=== PATIENT | male | born 1970 | race Caucasian/White ===

== ENCOUNTER 2016-11-26 12:08 | Inpatient (IN) | payer OTHER ==
[~2016-11-26] VITALS: Ht 177.8 cm; Wt 72.6 kg
[~2016-11-26 12:08] MED LIST: CHLORDIAZEPOXID10 M2 PO; CHLORDIAZEPOXID25 M3 PO; FOLIC ACID1 M1 PO; ONE DAILY MULT1 EAC2 PO; VITAMIN B-1100 MG PO
--- NOTE | 2016-11-26 12:12 | ED PSYCHIATRIC COMPLAINT ---
See Addendum History of Present Illness General Chief Complaint: ETOH/Drug Related Complaint Stated Complaint: BIBA ETOH +INTOXICATED Source: patient, EMS Exam Limitations: intoxication Vital Signs & Intake/Output Vital Signs & Intake/Output Vital Signs Date Time Temp Pulse Resp B/P B/P Pulse O2 O2 Flow FiO2 Mean Ox Delivery Rate 11/27 826 98.3 104 22 171/115 11/27 0822 98.3 104 22 171/115 95 Room Air 11/27 0753 172/106 11/27 0740 97.9 106 18 172/106 11/27 0739 97.9 108 18 172/106 94 Room Air 11/27 0644 97.6 108 20 142/98 11/27 0607 97.6 110 20 146/100 96 Room Air 11/27 0444 100 18 138/70 11/27 0444 100 18 138/70 94 Room Air 11/27 0244 98.4 107 18 135/88 11/27 0244 98.4 107 18 135/88 94 Room Air 11/27 0146 98.4 107 18 135/88 94 Room Air 11/26 2146 99.2 114 22 157/98 11/26 2145 99.2 114 22 157/98 94 Room Air 11/26 1423 97.4 100 20 140/90 92 Room Air 11/26 1236 97.8 102 12 158/98 99 Room Air ED Intake and Output 11/27 0000 11/26 1200 Intake Total Output Total Balance Patient 160 lb Weight Weight Reported by Patient Measurement Method Allergies Coded Allergies: NO KNOWN ALLERGIES (11/17/15) Reconcile Medications Amoxicillin/Clavulanate Potass (Amox-Clav 875-125 MG Tablet) 875 MG-125 MG TABLET 1 TAB PO BID ANTIBIOTIC, INFECTION (Reported) Chlordiazepoxide HCl 25 MG CAPSULE 1-2 CAP PO 4 TIMES/DAY PRN ANXIETY ( Reported) Chlordiazepoxide HCl 25 MG CAPSULE 1-2 CAP PO 4 TIMES/DAY PRN ALCOHOL WITHDRAWL Folic Acid 1 MG TABLET 1 MG PO DAILY supplements Multivitamin (One Daily Multivitamin) 1 EACH TABLET 1 TAB PO DAILY supplemental Thiamine HCl (Vitamin B-1) 100 MG TABLET 1 TAB PO DAILY supplements Triage Nurses Notes Reviewed? yes Onset: Abrupt Duration: day(s): (1) Timing: unknown Severity: moderate, severe Associated Symptoms: TEARFUL HPI: This is a 46-year-old male who presents by EMS from home for chief complaint of intoxication. He admits to drinking "a lot" today. Denies any drug use. He states he is not suicidal or homicidal. I asked him if he is here for detox and he said no. He states that he asked his friend to call EMS because he been drinking. Denies feeling anxious. He went to EMS friends called because they noticed that he was drinking a lot. He also states he may be evicted. (GARRISON ZALDIVAR MD) Past History Travel History Traveled to [place] past 21 day No Medical History Any Pertinent Medical History? see below for history Neurological: seizure, TIA, STROKE AVASCULAR NECROSIS EENT: SOME VISION DEFICIENCY Cardiovascular: hypertension, hyperlipidemia Respiratory: NONE Gastrointestinal: GERD Hepatic: NONE Renal: NONE Musculoskeletal: RIB FX Psychiatric: depression Endocrine: diabetes Blood Disorders: NONE Cancer(s): NONE INSIDE SALES SPECIALIST/Reproductive: NONE History of MRSA: No History of VRE: No History of CDIFF: No Surgical History Surgical History: hip replacement, skull surgery Psychosocial History Who do you live with Patient/Self Services at Home None What is your primary language Togolese Family History Comment: MOTHER TRIED TO COMMIT SUICIDE Family History, If Any: MOTHER (NEUROBLASTOMAALCOHOL ABUSEDM). SISTER (DM). SISTER FATHER (RETROPERITONEAL FIBROSIS). Hx Contributory? Yes (GARRISON ZALDIVAR MD) Review of Systems Review of Systems Constitutional: Denies: chills, fever. EENTM: Reports: no symptoms. Respiratory: Denies: cough, short of breath. Cardiovascular: Denies: chest pain. GI: Denies: abdominal pain. Genitourinary: Reports: no symptoms. Musculoskeletal: Reports: no symptoms. Skin: Reports: no symptoms. Neurological/Psychological: Reports: anxiety, emotional problems. Hematologic/Endocrine: Denies: bruising, bleeding, polyuria, polydipsia. Immunologic/Allergic: Reports: no symptoms. All Other Systems: Reviewed and Negative (GARRISON ZALDIVAR MD) Physical Exam Physical Exam General Appearance: alert, awake, anxious, mild distress, moderate distress, ALCOHOL ON BREATH Head: atraumatic Eyes: Bilateral: PERRL, EOMI. Ears, Nose, Throat: normal pharynx, normal ENT inspection, hearing grossly normal Neck: normal inspection, supple Respiratory: normal breath sounds Cardiovascular: regular rate/rhythm Gastrointestinal: soft, non-tender Extremities: normal range of motion Neurological/Psychiatric: awake, alert, depressed affect, TEARFUL Appearance/Memory/Insight: disheveled, impaired insight Behavoir/Eye Contact/Speech: cooperative, decreased rate of speech, good eye contact Thoughts/Hallucinations: no apparent hallucination Skin: intact, normal color, warm/dry SAD PERSONS Done? unobtained due to conditi (KAYLEY NASSAR,GARRISON) Progress Differential Diagnosis: ALCOHOL INTOCIATION, DEPRESSION, SUICIDAL IDEATION Plan of Care: Orders Procedure Date/time Status Continuous Observation Monitor 11/27 0800 Active CASE MANAGEMENT CONSULT 11/27 0047 Active Regular Diet 11/[address] in observation 11/26 1623 Active Patient Data 11/26 1555 Active Vital Signs 11/26 1555 Active Code Status 11/26 1555 Complete Code Status 11/26 1555 Active CIWA 11/26 1553 Active Continuous Observation Monitor 11/26 1459 Active ED CRISIS PSYCH CONSULT 11/26 1459 Active URINE DRUGS OF ABUSE 11/26 1240 Complete ETHANOL 11/26 1240 Complete COMPREHENSIVE METABOLIC PANEL 11/26 1240 Complete CBC WITHOUT DIFFERENTIAL 11/26 1240 Complete Intake & Output 11/26 1227 Active Laboratory Tests 11/26/16 1320: Serum Alcohol 430.0 11/26/16 1320: Anion Gap 12, Estimated GFR > 60, BUN/Creatinine Ratio 15.0, Glucose 100 H, Calcium 8.5, Total Bilirubin 0.5, AST 100 H, ALT 68, Alkaline Phosphatase 79, Total Protein 7.5, Albumin 4.5, Globulin 3.0, Albumin/Globulin Ratio 1.5, CBC w Diff NO MAN DIFF REQ, RBC 5.34, MCV 95.0 H, MCH 32.5 H, RDW 14.3, MPV 5.9 L, Gran % 73.8, Lymphocytes % 20.7, Monocytes % 4.9, Eosinophils % 0.2, Basophils % 0.4, Absolute Granulocytes 6.5, Absolute Lymphocytes 1.8, Absolute Monocytes 0.4 , Absolute Eosinophils 0, Absolute Basophils 0, PUBS MCHC 34.2, Urine Opiates Screen < 100.00, Methadone Screen < 40, Barbiturate Screen < 60, Ur Phencyclidine Scrn < 6.00, Amphetamines Screen 158, U Benzodiazepines Scrn < 85, Urine Cocaine Screen < 50, Urine Cannabis Screen 76.60 H LABS, ETOH, UTOX ORDERED. PATIENT TEARFUL AND WANTS TO GO HOME. HE DOES NOT HAVE A SOBER RODE HOME AT THIS TIME. PATIENT TOLD FAMILY ADN STAFF THAT HE DOES NOT WANT TO LIVE ANYMORE AND HAS NO PLACE TO GO. ADMITS TO RECENT OF AND FACT THAT HE MIGHT BE EVICTED. SITTER ORDER, CRISIS CONSULT PLACED. (GARRISON ZALDIVAR MD) Hand-Off Endorsed To: HARRY CORTEZ MD Endorsed Time: 1913 Pending: consult (CRISIS) (GARRISON ZALDIVAR MD) Hand-Off Endorsed To: CRYSTAL GERARD DO Endorsed Time: 0700 Pending: consult (CASE MANAGEMENT) (HARRY CORTEZ MD) Departure Departure Disposition: STILL A PATIENT Condition: Stable Clinical Impression Primary Impression: Suicidal ideation Secondary Impressions: Alcohol intoxication Referrals: VENKATESH GREGG MD (PCP/Family) Departure Forms: Customer Survey General Discharge Information (GARRISON ZALDIVAR MD) Departure Comments 11/27/16 9 am The patient is having severe diaphoresis tachycardia and elevated CIWA scores. He was moved to room 7. An IV was established. IV fluids were given and IV Ativan. He is pending case management approval for admission for alcohol detox. (CRYSTAL GERARD DO) ED Attending Observation Initial Observation Note: I have seen and personally examined PATRICIO ADAMS on 11/26/16 at 1555. I agree with the current emergency department documentation. The disposition (admission or discharge) is uncertain at this time, he needs a period of observation for the following reason(s): [CIWA PROTOCOL, ATIVAN PRN, SEIZURE PRECAUTIONS, 1:1 SITTER, CRISIS CONSULTATION WHEN STABLE] The ED Nurse caring for this patient has been personally informed as to what the patient is being observed for. Observation Re-Evaluation: I have reevaluated PATRICIO ADAMS on 11/26/16 at 1914. The physical findings that support the continued need to observe this patient include [patient signed out to Dr. Cortez pending sobriety and crisis consult. I explained to the patient and his sister at length the process. He is comfortable now sleeping in the room. Ativan was administered for anxiety. No obvious signs of alcohol withdrawal at this time.]. (GARRISON ZALDIVAR MD) Observation Re-Evaluation: I have reevaluated PATRICIO ADAMS on 11/27/16 at 0138. The physical findings that support the continued need to observe this patient include [patient CIWA score is starting to escalate. Positive nausea. Patient treated. I'll continue to observe.]. (DIEGO NASSAR,HARRY Martinez)
--- NOTE | 2016-11-26 12:27 | NUR ---
BECCA FROM HOME, EMS CALLED BY NEIGHBORS FOR PT HAVING A PANIC ATTACK. NO SI OR HI. ADMITS TO DRINKING "ALOT OF VODKA". BS 113.
[2016-11-26] MEDS ORDERED: AMOX-CLAV 875-1 EACH PO (12:34)
[2016-11-26 13:29] LABS: ABSOLUTE BASOPHIL COUNT 0 /CUMM (0.0-0.2); ABSOLUTE EOSINOPHIL COUNT 0 /CUMM (0.0-0.7); ABSOLUTE GRANULOCYTE CT 6.5 /CUMM (1.4-6.5); ABSOLUTE LYMPH COUNT 1.8 /CUMM (1.2-3.4); ABSOLUTE MONOCYTE COUNT 0.4 /CUMM (0.10-0.60); BASOPHIL % 0.4 % (0.0-2.0); EOSINOPHIL % 0.2 % (0-5); GRANULOCYTE % 73.8 % (42.2-75.2); HEMATOCRIT 50.7 % (42-52); MEAN CORPUSCULAR HGB 32.5 PG (27.0-31.0); MEAN CORPUSCULAR HGB CONC 34.2 G/DL (33.0-37.0); MEAN PLATELET VOLUME 5.9 FL (7.4-10.4); PLATELET COUNT 170 /CUMM (130-400); RBC DISTRIBUTION WIDTH 14.3 % (11.5-14.5); RED BLOOD CELL CT 5.34 /CUMM (4.70-6.10); WHITE BLOOD CELL COUNT 8.8 /CUMM (4.8-10.8)
--- NOTE | 2016-11-26 14:06 | NUR ---
PT IS VERY COOPERATIVE, DENIES HOUSER, SOME NAUSEA ZOFRAN GIVEN. ALERT TO NAME, UNSURE OF WHY HE IS HERE. ADMITS TO DRINKING ALOT OF ALCOHOL.
--- NOTE | 2016-11-26 17:24 | NUR ---
LAISHA SISTER [phone] MOBILE. ALLOWED TO GIVE INFORMATION.
--- NOTE | 2016-11-26 20:17 | NUR ---
PT RESTING ON BED. NO APPARENT DISTRESS NOTED. NORMAL RISE AND FALL OF CHEST NOTED. NORMAL RR NOTED. WILL CONTINUE TO MONITOR.
--- NOTE | 2016-11-26 20:36 | ED PSY CRISIS COLLATERAL NOTE ---
Collateral Note Collateral Note Family/Inform/[place] Contacts: KAI spoke with the patients sister, Vika Montesinos ([phone]), for collateral information. Vika notes that the patient has struggled with alcohol abuse for many years. She notes that he recently relapsed after a 6-7 month period, of sobriety, after the mother of his children in 2016. He has two sons who currently reside with their maternal grandmother. Per Vika, the patients "ex - ," via an overdose. Vika reports that the patient was doing well, until recently, when he had an increase in stressors. Despite regularly working at a [employer] the patient had his house foreclosed on and he was evicted today. Vika states that "the SWAT team," was there during the eviction process, as the patient had firearms in the home (legally per Vika). Vika believes that the patient relapsed over the last couple of days and was intoxicated when police were there. She states that the patient had a seizure and that the police called an ambulance. Vika states that the patient made multiple suicidal statements today and that she is concerned for him. Vika is not clear what would be most helpful for the patient, however she is clear that he does need help. She reports that she did inform his employer that he was in the ED, however she is concerned for his mental health, if he loses his job, as he has lost so much. Vika would like to be called tomorrow with the plan of care and will make herself available to talk and to assist in plan.
--- NOTE | 2016-11-26 21:44 | NUR ---
PT ACTIVELY EXPERIENCING N/V. PT MEDICATED WITH ZOFRAN PO. PT APPEARS TO BE FLUSHED. WILL CONTINUE TO MONITOR.
[2016-11-26 21:46] VITALS: BP 157/98
[2016-11-27] VITALS (13 sets, daily range): BP systolic 135–172; BP diastolic 70–115
--- NOTE | 2016-11-27 00:42 | NUR ---
PT CONTINUES TO EXPERIENCE N/V. PT MEDICATED WITH REGLAN IM. WILL CONTINUE TO MONITOR.
--- NOTE | 2016-11-27 01:02 | NUR ---
PT MEDICATED WITH PO ATIVAN PER EMAR.
--- NOTE | 2016-11-27 02:56 | NUR ---
PT RESTING QUIETLY ON STRETCHER. NO APPARENT DISTRESS NOTED. NORMAL RISE AND FALL OF CHEST NOTED. WILL CONTINUE TO MONITOR. SITTER IN PLACE.
--- NOTE | 2016-11-27 04:52 | NUR ---
PT UP TO RESTROOM, SITTER IN PLACE.
--- NOTE | 2016-11-27 06:58 | NUR ---
REPORT GIVEN TO LARRY CAZARES.
--- NOTE | 2016-11-27 07:41 | NUR ---
ASSUMED CARE AT THIS TIME, PT AWAKE AND ALERT, DENIES NAUSEA AT THIS TIME, STATES THAT THE NAUSEA MED THAT PREVIOUS NURSE GAVE HELPED. PT COMPLAINS OF FEELING SWEATY , AND MONSTER PT NOTED WITH VISIBLE SWEAT ON FOREHEAD AND ARMS TREMULOUS
--- NOTE | 2016-11-27 07:43 | NUR ---
BP 170/106 MD AWARE
--- NOTE | 2016-11-27 07:53 | NUR ---
PT MEDICATED WITH ATIVAN 2 MG PO AND LOPRESSOR 25 MG PO PER ORDER
--- NOTE | 2016-11-27 08:24 | NUR ---
PT NOTED NOT TO BE ABLE TO HOLD CUP DUE TO HANDS SHAKING, BEADS OF SWEAT ON FOREHEAD AND SCRUBS SATURATED WITH SWEAT, PT MOVED TO MEDICAL ROOM AND IV # 20 PLACED IN HIS R HAND. PT REMAINS ALERT AND ORIENTED AND SINUS TACH ON MONITOR WITH HR 106. DR GERARD AT BEDSIDE TO EVALUATE
--- NOTE | 2016-11-27 08:36 | NUR ---
PT NOTED WITH LOOSE NON PRODUCTIVE COUGH, STATES THAT HE WAS DIAGNOSED WITH BRONCHITIS, O2 SAT 86-88 % ON RA, PLACED ON 2L VIA NC AND O2 SAT INCREASED TO 92 % . MD MCCALL
--- NOTE | 2016-11-27 08:51 | NUR ---
FS 90 AT THIS TIME, WHEN THIS NURSE QUESTIONED HIM ABOUT HIS HISTORY OF DIABETES , PT STATES THAT HE IS HYPOGLYCEMIC, FS 90 AT THIS TIME, FOOD TRAY PROVIDED BUT PT STATES THAT HE JUST HAS NO APPETITE AT THIS TIME. PT DRANK A CARTON OF MILK ABOUT 35 MINUTES AGO.
--- NOTE | 2016-11-27 09:20 | NUR ---
PT NOTED TO BE SLEEPING AT THIS TIME, REGULAR RESP RATE NOTED HR 84 AND NSR
--- NOTE | 2016-11-27 09:54 | NUR ---
PT MEDICATED WITH LIBRIUM 50 MG PO PER ORDER, ALERT AND ORIENTED ,MILD VISIBLE TREMORS NOTED AT THIS TIME.
--- NOTE | 2016-11-27 10:35 | NUR ---
PT AWAKE AND ALERT AT THIS TIME, DENIES FEELING SHAKEY , MILD VISIBLE TREMORS NOTED WHRN HOLDING ARMS OUT. BP REMAINS ELEVATED 160/112 MD MADE AWARE
--- NOTE | 2016-11-27 11:14 | NUR ---
PT ALERT AND ORIENTED. BSG = 87. MILD TREMORS NOTED WITH ARMS OUTSTRETCHED. CIWA = 4
--- NOTE | 2016-11-27 11:40 | NUR ---
11/27 CASE MGMT- [facility] AUTH#[id number] FOR 6 DAYS UNTIL 12/02/[address] GERARD AWARE.
--- NOTE | 2016-11-27 11:46 | RADIOLOGY REPORT ---
EXAMINATION: XR PORTABLE CHEST CLINICAL INFORMATION: Cough. Assess for pneumonia. Shortness of breath. COMPARISON: Chest x-ray 09/04/2015. TECHNIQUE: Portable upright frontal view of the chest was obtained. FINDINGS: The lung peña are well expanded and appear clear bilaterally. The cardiac silhouette is normal. There are no pleural effusions or pneumothorax. The central pulmonary vasculature is normal. The hilar regions appear normal. There are no acute osseous findings. IMPRESSION: 1. There are no acute cardiopulmonary findings.
--- NOTE | 2016-11-27 11:52 | NUR ---
PT MEDICATED WITH LOPRESSOR 5MG IV.
--- NOTE | 2016-11-27 12:25 | History & Physical ---
[facility] 11/27/16 1225: General Information and HPI MD Statement: I have seen and personally examined PATRICIO ADAMS and documented this H&P. The patient is a 46 year old M who presented with a patient stated chief complaint of [Alcohol detox]. Source of Information: patient, family, old records Exam Limitations: no limitations History of Present Illness: is a 46 yo man with PMHx. 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 Patient was completely cooperative during the encounter and calm He reported that day before yesterday his house foreclosed on and he was evicted , as he was unable to pay the fee after his x- on May 2016. Patient reported that since his last admission to [facility] at 2014 he remains sober, he was drinking alcohol here and there but not consistently and not too much. However he started to drink heavily on August 2016, he drinks 500ml of rum and 2 peers daily before he goes to work. He had a lot of stress related to his ex-'s and financial problem. Yesterday when the police was at his house he started to have seizures so they called 911 and they brought him to ED. He stated that seizure was in the form of tonic-clonic in both upper and lower extrimity, his head and eyes was rolling back, he denies tongue biting and there is no urinary or bowel incontinence. Yesterday he reports to ED staff that he doesn't want to live anymore and he wants to end his life, so crisis was called for suicidal ideation. He was noticed to have withdrawal symptoms in the form of sweating, shaking, and anxiety. Patient denies any chest pain, shortness of breath, fever, chills, nausea, vomiting, vision changes, hallucinations, and there is no change in urinary or bowel habits. Offnote: patient report that he had a recent history of bronchitis about 2 weeks ago, he mentioned yojana he still had productive cough of yellow phlegm. Allergies/Medications Allergies: Coded Allergies: NO KNOWN ALLERGIES (11/17/15) Past History Travel History Traveled to [place] past 21 day No Medical History Neurological: seizure, TIA, STROKE AVASCULAR NECROSIS EENT: SOME VISION DEFICIENCY Cardiovascular: hypertension, hyperlipidemia Respiratory: NONE Gastrointestinal: GERD Hepatic: NONE Renal: NONE Musculoskeletal: RIB FX Psychiatric: depression Endocrine: diabetes Blood Disorders: NONE Cancer(s): NONE TOP IRONER/Reproductive: NONE History of MRSA: No History of VRE: No History of CDIFF: No Isolation History: Standard Surgical History Surgical History: hip replacement, skull surgery Past Family/Social History Family History Relations & Conditions if any MOTHER (NEUROBLASTOMAALCOHOL ABUSEDM). SISTER (DM). SISTER FATHER (RETROPERITONEAL FIBROSIS). Psychosocial History Who Do You Live With? self Services at Home: None Smoking Status: Unknown If Ever Smoked ETOH Use: heavy use Functional Ability ADLs Independent: dressing, eating, toileting, bathing. Ambulation: independent IADLs Independent: shopping, housework, finances, food prep, telephone, transportation , medication admin. Review of Systems Review of Systems Constitutional: Reports: no symptoms. EENTM: Reports: no symptoms. Cardiovascular: Reports: no symptoms. Respiratory: Reports: no symptoms. GI: Reports: no symptoms. Genitourinary: Reports: no symptoms. Musculoskeletal: Reports: no symptoms. Skin: Reports: no symptoms. Neurological/Psychological: Reports: anxiety. Hematologic/Endocrine: Reports: no symptoms. Immunologic/Allergic: Reports: no symptoms. All Other Systems: Reviewed and Negative Exam & Diagnostic Data Last 24 Hrs of Vital Signs/I&O Vital Signs Date Time Temp Pulse Resp B/P B/P Pulse O2 O2 Flow FiO2 Mean Ox Delivery Rate 11/27 1327 92 19 156/102 11/27 1321 92 19 156/102 91 Nasal 2.0L Cannula 11/27 1223 87 28 159/100 94 Nasal 2.0L Cannula 11/27 1220 87 28 159/100 11/27 1205 86 26 156/101 95 Nasal 2.0L Cannula 11/27 1152 99 17 161/107 11/27 1113 95 20 167/108 11/27 1112 95 20 167/108 95 Nasal 2.0L Cannula 11/27 1034 98.0 90 18 160/112 98 Nasal 2.0L Cannula 11/27 1033 98.0 90 18 160/112 11/27 0922 99.1 88 18 145/106 11/27 0822 99.1 88 20 145/106 95 Nasal 2.0L Cannula 11/27 0827 98.3 104 22 171/115 11/27 0822 98.3 104 22 171/115 95 Room Air 11/27 0753 172/106 11/27 0740 97.9 106 18 172/106 11/27 0739 97.9 108 18 172/106 94 Room Air 11/27 0644 97.6 108 20 142/98 11/27 0607 97.6 110 20 146/100 96 Room Air 11/27 0444 100 18 138/70 11/27 0444 100 18 138/70 94 Room Air 11/27 0244 98.4 107 18 135/88 11/27 0244 98.4 107 18 135/88 94 Room Air 11/27 0146 98.4 107 18 135/88 94 Room Air 11/26 2146 99.2 114 22 157/98 11/26 2145 99.2 114 22 157/98 94 Room Air 11/26 1423 97.4 100 20 140/90 92 Room Air Physical Exam General Appearance Alert, Oriented X3, Cooperative, No Acute Distress Skin No Rashes, No Breakdown, No Significant Lesion HEENT Atraumatic, PERRLA, EOMI, Mucous Membr. moist/pink Neck Supple, No JVD, No thryomegaly Lymphatic Axillary nl, Cervical nl Cardiovascular Regular Rate, Normal S1, Normal S2 Lungs Clear to Auscultation, Normal Air Movement Abdomen Normal Bowel Sounds, Soft, No Tenderness Neurological Normal Speech, Strength at 5/5 X4 Ext, Normal Tone Extremities No Edema, Normal Pulses Vascular Normal Pulses, Pulses Symmetrical Assessment/Plan Assessment: is a 46 yo man with PMHx. 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 Admitted to general medicine floor for alcohol detox. Vitals, examination, labs and imaging as above Assessment: #ETOH withdrawal #Hx. of ETOH withdrawal seizure #Recent Hx. of bronchitis (2 weeks ago) #Hx. of HTN, HLD #Borderline diabetes #Hx. of stroke/TIA Plan: -Will admitt the patient to telemetry floor -Will start Librium 50mg po Q8 -CIWA protocol. Ativan per CIWA -Clonidine 0.1mg PO tid for BP control -Banana bag, folic acid -Psych. consult -Social/ case management consult -Medications confirmed: he is not on any medications at home -Pain management pathway -Baseline EKG -CBC, BEP, MG, PO4 at am Full code DVT ppx: sc Lovenox HE STARTED TO DRINK AGAIN AT AUGUST, HE DRINKS HE DRINK CAPTIN MOR (RUM)AND EVERY DAY HE STARTED WITH 2 PEERS, NO DRUGS NO MARRIJUANA HE FEELS ANXIUOS, AND SHAKY, SWEATY NO CHEST PAIN , NO PALPITATION, lAST DRINK 2 DAYS AGO, As Ranked By This Provider Problem List: 1. Alcohol abuse 2. Alcohol dependence with withdrawal 3. Anxiety Core Measures/Miscellaneous Acute Coronary Syndrome ACS Diagnosis: No Cerebrovascular Accident CVA/TIA Diagnosis: No Congestive Heart Failure CHF Diagnosis: No Venous Thromboembolism VTE Risk Factors: Acute medical illness, Age > 40 No Mech VTE prophylaxis d/t: No contraindications No VTE Pharm Prophylaxis d/t: No contraindications VTE Diagnosis: No VTE Type: NONE VTE Confirmed by (Test): NONE Severe Sepsis Severe Sepsis Present: No Septic Shock Septic Shock Present: No Miscellaneous Documentation Attending Case Discussed With: DREW PASOTR MD Primary Care Physician: VENKATESH GREGG MD Patient sees these Specialists - Level of Patient Care: General Medicine DREW PASTOR 11/27/16 1347: Attending Review Statement Attending Statement Attending Statement: examined this patient, discuss w/resident/PA/WORK STATION SUPPORT SPECIALIST, agreed w/resident/PA/WORK STATION SUPPORT SPECIALIST, discussed with family, reviewed EMR data (avail), discussed with nursing, discussed with case mgmt, reviewed images, amended to note Attending Assessment/Plan: 46 o/m with recent admit for alcohol withdrawal comes with alcohol intoxication and impending withdrawal. ASSESSMENT 1. Alcohol intoxication TOÑA 430 2. Impending Dts. 3. hypertension uncontrolled 4. Marijauna use. 5. h/o alcohol withdrawal seizure 6. borderline diabetes 7. h/o vascular necrosis of hip. PLAN admit to inpatient medical services [facility] protocol, librium taper, clonidine o.1 mg tid for bp control IVF, ativan prn for seizure. MVI, thiamine folic acid acid. Pysch consult, SW consult. gi/dvt prophylaxis low threshold transfer to ICU. gi/dvt prophyalxis
--- NOTE | 2016-11-27 13:26 | NUR ---
BANANA BAG STARTED AT 125ML/HR AND PT MEDICATED WITH ATIVAN 2MG PO
--- NOTE | 2016-11-27 14:15 | NUR ---
[facility] CALLED THIS NURSE TO EVAL PT BECAUSE HE WAS DIAPHORETIC AND RED IN FACE. PT DENIES ANY OTHER CONCERNS EXCEPT A BIT OF ANXIETY AT THE MOMENT. VITALS TAKEN AND CIWA COMPLETED AND NURSE INFORMED OF FINDING
--- NOTE | 2016-11-27 14:57 | NUR ---
PT MEDICATED WITH PRILOSEC 40MG, CLONIDINE 0.1MG AND LIBRIUM 50MG PER EMAR
--- NOTE | 2016-11-27 16:23 | Patient Discharge Instructions ---
Discharge Instructions General Discharge Information You were seen/treated for: ETOH withdrawl Special Instructions: please follow up with PCP. Please quit alcohol and if need help than follow PCP or come to ED Diet Continue normal diet: Yes Activity Full Activity/No Limits: No (as tolerated) Acute Coronary Syndrome Inclusion Criteria At DC or during hospital stay patient has or had the following: ACS DIAGNOSIS No Discharge Core Measures Meds if any: Prescribed or Continued at Discharge Meds if any: NOT Prescribed or Continued at Discharge Congestive Heart Failure Inclusion Criteria At DC or during hospital stay patient has or had the following: CHF DIAGNOSIS No Discharge Core Measures Meds if any: Prescribed or Continued at Discharge Meds if any: NOT Prescribed or Continued at Discharge Cerebrovascular accident Inclusion Criteria At DC or during hospital stay patient has or had the following: CVA/TIA Diagnosis No Discharge Core Measures Meds if any: Prescribed or Continued at Discharge Meds if any: NOT Prescribed or Continued at Discharge Venous thromboembolism Inclusion Criteria VTE Diagnosis No VTE Type NONE VTE Confirmed by (Test) NONE Discharge Core Measures - Per Current guidelines, there needs to be overlap - treatment for the first 5 days of Warfarin therapy. - If discharged on Warfarin prior to 5 days of - overlap therapy, the patient will need to be - assessed for post discharge needs including - *Post discharge parental anticoagulation - *Warfarin and/or parental anticoagulation education - *Follow up date to check INR post discharge At least 5 days overlap therapy as Inpatient No Meds if any: Prescribed or Continued at Discharge Note: Overlap Therapy is Warfarin and Anticoagulant Meds if any: NOT Prescribed or Continued at Discharge
[2016-11-27] MEDS ORDERED: CLONIDINE HCL0.1 MG PO (16:26)
--- NOTE | 2016-11-27 16:49 | Event Note ---
Event Note Event Note: We discussed about the alcohol withdrawal and its complication. Patient is aware of risk of fall, seizures, even . We took the psych evaluation and they confirmed the capacity of patient to make the decision. He was oriented to time, place and person. He knows the prognosis of his disease. Despite of all he want to leave AMA and does not want to have any active intervention. We took the sign on AMA form. We gave CMR. Resident and attending is aware.
--- NOTE | 2016-11-27 16:52 | ED PSYCHIATRIST/APRN CONSULT ---
Psychiatrist/BREAD ICER ED Consult Assessment and Plan: Identifying info: 46-year-old male presents to [facility] emergency department in the context of alcohol intoxication. Consult requested to rule out patient's suicidality, additionally patient requested to leave AMA so capacity evaluation was completed with primary team present. Subjective "I want to get out of here." Patient recounts variety of stressors including his ex- dying in May of last year due to overdosing on heroin with "something else mixed in," his home being foreclosed upon, and feeling like he was "set up" to get a DUI. He states that this led to him consuming a significant amount of alcohol however he had a difficult time quantifying it. When asked what could potentially happen if the patient left without completing his alcohol withdrawl treatment he stated that he could potentially "stroke out, " or "have a seizure and fall into a ditch," as well as . He was able to verbalize the benefits of continued treatment at hospital including prevention of the above but continued to express this choice to leave. He states he will not drive. Brief ROS Gait: Unobserved Sleep: Reports poor Appetite: Adequate Energy: Fair IADLs/ADLs: Independent Objective Mental Status Exam Presentation/Appearance: Cooperative with evaluation. Hospital garb. Appears flushed, minimal tremor noted. Orientation: Oriented to self, place, situation, month and year. Incorrectly states date as but with prompting is able to correct self. Sensorium: Awake and alert Eye contact: Appropriate Affect: Blunted Mood: Dysphoric Depression: Endorses Anxiety: Endorses Thought Content: - Denies SI/HI, AH/VH, PI. States and also believes they will not kill themselves. - Does report he had suicidal thoughts while intoxicated several weeks ago and did not act on them. Denies any suicide attempt or suicide attempt by family member or close friends. - Denies Hopeless/Helpless Thoughts Thought Process: Linear, perseverative at times on feeling of wanting to leave Associations: Appropriate Speech: Normal tone and rate Judgment: Poor Insight: Poor Cognition: Memory: Short-term deficits reported due to recent intoxication otherwise grossly intact Attention/Concentration: Grossly intact Fund of Knowledge: Adequate Per nursing report patient did not make explicit suicidal statements but rather made comments to sitter regarding feeling helpless in the face of his current stressors. Capacity assessment Patient was able to indicate a choice of treatment or no treatment, stating he would prefer no treatment. He was able displayed the ability to understand the relevant information and appreciate the situation and it's consequences including risks and benefits of treatment versus no treatment. He displayed the ability to reason about treatment options. Laboratory Tests 11/26/16 1320: Serum Alcohol 430.0 11/26/16 1320: Anion Gap 12, Estimated GFR > 60, BUN/Creatinine Ratio 15.0, Glucose 100 H, Calcium 8.5, Total Bilirubin 0.5, AST 100 H, ALT 68, Alkaline Phosphatase 79, Total Protein 7.5, Albumin 4.5, Globulin 3.0, Albumin/Globulin Ratio 1.5, CBC w Diff NO MAN DIFF REQ, RBC 5.34, MCV 95.0 H, MCH 32.5 H, RDW 14.3, MPV 5.9 L, Gran % 73.8, Lymphocytes % 20.7, Monocytes % 4.9, Eosinophils % 0.2, Basophils % 0.4, Absolute Granulocytes 6.5, Absolute Lymphocytes 1.8, Absolute Monocytes 0.4 , Absolute Eosinophils 0, Absolute Basophils 0, PUBS MCHC 34.2, Urine Opiates Screen < 100.00, Methadone Screen < 40, Barbiturate Screen < 60, Ur Phencyclidine Scrn < 6.00, Amphetamines Screen 158, U Benzodiazepines Scrn < 85, Urine Cocaine Screen < 50, Urine Cannabis Screen 76.60 H Assessment 46-year-old male presents to [facility] intoxicated. He attributes his current drinking to multiple stressors. He is not suicidal at this time and has no known history of suicide attempt. He is able to satisfy healthcare decision-making capacity as it relates to his treatment or non- treatment of alcohol detoxification. He would benefit from a medically supervised detox and follow-up care however he communicates this choice to decline this treatment. As he has capacity, is not an imminent threat to himself or anyone else, and is not gravely disabled he cannot be held against his will. Differential diagnosis Alcohol use disorder, severe Rule out adjustment disorder Rule out unspecified mood disorder Plan 1. The patient may leave AMA but it would be prudent to continue to encourage him to accept treatment to prevent negative outcomes to help maintain sobriety. A total of 60 minutes was spent with the patient with more than 50% of the time spent in counseling and/or coordination of care.
--- NOTE | 2016-11-27 17:16 | NUR ---
PT IS LEAVING AMA
--- NOTE | 2016-11-27 17:36 | Discharge Summary ---
Visit Information Visit Dates Admission Date: 11/27/16 Discharge Date: 11/27/2016 Hospital Course Course Attending Physician: DREW PASTOR MD Primary Care Physician: VENKATESH GREGG MD [facility] Course: is a 46 yo man with PMHx. 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 Vital signs-temperature 97.4, pulse 100, respiratory 20, blood pressure 140/90, SPO2 92% on room air We admitted the patient into general medical floor.He was treated on the line of alcohol withdrawal But later he decided to leave. We took the psychiatry consult to know the capacity of the patient, and according to them, he has capacity to make the decision. We discussed about the benefit of the treatment and the risk of not having the treatment. Patient is aware of all the risks of not having the treatment including seizures, and . Despite of benefit and risk he refused to remain admitted and wanted to leave. We discharged the patient and advised to follow-up with the PCP. We also advised to take the medication as prescribed. Allergies: Coded Allergies: NO KNOWN ALLERGIES (11/17/15) Disposition Summary Disposition Principal Diagnosis: Alcohol intoxication, blood alcohol level 430, impending delirium tremens Additional Diagnosis: Polysubstance abuse Hypertension, uncontrolled Borderline diabetes History of vascular necrosis of the hip Discharge Disposition: left against medical adv Discharge Instructions General Discharge Information Code Status: Full Code Patient's Diet: Regular Patient's Activity: As tolerated Follow-Up Instructions/Appts: Please follow-up with your primary care provider. Please avoid /quit alcohol intake. Medications at Discharge Discharge Medications: Stop taking the following medications: Folic Acid (Folic Acid) 1 MG TABLET ORAL DAILY Days = 60 Thiamine HCl (Vitamin B-1) 100 MG TABLET ORAL DAILY Days = 60 Multivitamin (One Daily Multivitamin) 1 EACH TABLET ORAL DAILY Days = 60 Start taking the following new medications: Clonidine HCl (Clonidine HCl) 0.1 MG TABLET 1 Tablet ORAL TWICE DAILY Qty = 6 No Refills Copies To: VENKATESH GREGG MD, MD Review Statement Documenting Attending: DREW PASTOR MD
--- NOTE | 2016-11-29 07:52 | NUR ---
Late Entry: Aware of patients AMA discharge on 11/27/16. Patient not seen by social media director prior to discharge.
== END 2016-11-27 17:16 | DRG 775 ==
LOC: ERH 12:08 → ERHI 16:23 → EDBEDREQSVC 11-27 12:56 → EDBEDREQ 11-27 12:56 → EDBEDREQDT 11-27 12:56 → EDBEDREQTM 11-27 12:56 → ERHI 11-27 12:57 → CMPBEDREQ 11-27 23:10
PROVIDERS: ADMIT Emergency Medicine
DX: F10.239 Alcohol dependence with withdrawal, unspecified (principal); Y90.8 Blood alcohol level of 240 mg/100 ml or more; I10 Essential (primary) hypertension; E78.5 Hyperlipidemia, unspecified; E11.9 Type 2 diabetes mellitus without complications; F32.9 Major depressive disorder, single episode, unspecified; Z86.73 Personal history of transient ischemic attack (TIA), and cerebral infarction without residual deficits; K21.9 Gastro-esophageal reflux disease without esophagitis; F12.90 Cannabis use, unspecified, uncomplicated
CPT/HCPCS: ERO; 80307; 82436; 93005; 93010; G0480; J1650; J2765; J3101; J3490

== ENCOUNTER 2016-11-28 19:28 | Inpatient (IN) | payer OTHER ==
[~2016-11-28] VITALS: Ht 177.8 cm; Wt 79.4 kg
[~2016-11-28 19:28] MED LIST changes: +AMOX-CLAV 875-1 EACH PO; +CLONIDINE HCL0.1 MG PO
--- NOTE | 2016-11-28 19:56 | ED GENERAL ADULT ---
See Addendum History of Present Illness General Chief Complaint: ETOH/Drug Related Complaint Stated Complaint: ETOH, SOB, SEEN HERE YESTERDAY FOR DETOX, LEFT AMA Source: patient, friend Exam Limitations: clinical condition, poor historian, intoxication Vital Signs & Intake/Output Vital Signs & Intake/Output Vital Signs Date Time Temp Pulse Resp B/P B/P Pulse O2 O2 Flow FiO2 Mean Ox Delivery Rate 11/29 0530 96.0 93 16 127/87 11/29 0530 96.0 93 16 127/87 97 Room Air Room Air 11/29 0336 97.0 96 18 121/67 92 Room Air / 0333 97.0 96 18 121/67 / 0134 97.0 102 18 99/57 97 Room Air / 0133 97.0 102 18 99/57 11/28 2304 97.6 102 20 112/65 11/28 2252 97.6 102 20 112/65 97 Room Air 11/28 2143 98.5 108 14 115/73 94 Room Air 11/28 2030 95 Room Air 11/285 98.3 127 18 132/81 95 Room Air ED Intake and Output 11/29 0000 11/28 1200 Intake Total 3000 Output Total Balance 3000 Intake, IV 3000 Was treated with IV fluids. Labs were sent (CRYSTAL GERARD DO) Allergies Coded Allergies: NO KNOWN ALLERGIES (11/17/15) Reconcile Medications Clonidine HCl 0.1 MG TABLET 1 TAB PO BID HTN Triage Nurses Notes Reviewed? yes Onset: Abrupt Duration: day(s): Timing: recent history HPI: 11/28/16 8 PM 46-year-old male presents to the emergency department for alcohol intoxication. The patient was seen in the emergency department and was to be admitted yesterday. He signed out AGAINST MEDICAL ADVICE and obviously drank again. He comes in by a friend who said that he called them and asked them to bring him to the hospital. In the ED the patient is obviously intoxicated he denies any trauma. The onset of the symptoms was abrupt, the duration was just today, the severity is significant; as his symptoms required to come to the emergency department for care. (CRYSTAL GERARD DO) Past History Travel History Traveled to [place] past 21 day No Medical History Any Pertinent Medical History? see below for history Neurological: seizure, TIA, STROKE AVASCULAR NECROSIS EENT: SOME VISION DEFICIENCY Cardiovascular: hypertension, hyperlipidemia Respiratory: NONE Gastrointestinal: GERD Hepatic: NONE Renal: NONE Musculoskeletal: RIB FX Psychiatric: depression Endocrine: diabetes Blood Disorders: NONE Cancer(s): NONE MEDICAL HOUSEKEEPER/Reproductive: NONE History of MRSA: No History of VRE: No History of CDIFF: No Surgical History Surgical History: hip replacement, skull surgery Psychosocial History Who do you live with Patient/Self Services at Home None What is your primary language Frisian Family History Family History, If Any: MOTHER (NEUROBLASTOMAALCOHOL ABUSEDM). SISTER (DM). SISTER FATHER (RETROPERITONEAL FIBROSIS). Hx Contributory? No (CRYSTAL GERARD DO) Review of Systems Review of Systems Constitutional: Denies: fever. EENTM: Reports: no symptoms. Respiratory: Reports: no symptoms. Cardiovascular: Reports: no symptoms. GI: Reports: no symptoms. Genitourinary: Reports: no symptoms. Musculoskeletal: Reports: no symptoms. Skin: Reports: no symptoms. Neurological/Psychological: Reports: no symptoms. Hematologic/Endocrine: Reports: no symptoms. (CRYSTAL GERARD DO) Physical Exam Physical Exam General Appearance: awake, anxious, intoxicated Head: atraumatic, normal appearance Eyes: Bilateral: normal appearance, PERRL, EOMI. Ears, Nose, Throat: normal pharynx, normal ENT inspection Neck: normal inspection, supple, full range of motion Respiratory: normal breath sounds, chest non-tender, no respiratory distress Cardiovascular: regular rate/rhythm Peripheral Pulses: 4+ radial (R), 4+ radial (L) Gastrointestinal: soft, non-tender Back: normal range of motion Extremities: normal inspection, normal range of motion Neurologic/Psych: awake, intoxicated Skin: diaphoresis Core Measures ACS in differential dx? No CVA/TIA Diagnosis: No Severe Sepsis Present: No Septic Shock Present: No (CRYSTAL GERARD DO) Progress Differential Diagnoses I considered the following diagnoses in my evaluation of the patient: [Alcohol intoxication, substance abuse, depression,] Plan of Care: Orders Procedure Date/time Status Regular Diet 11/29 B Active CASE MANAGEMENT CONSULT 11/29 617 Active Add-on Test (ER Only) 11/29 2207 Active ETHANOL 11/28 2026 Complete CIWA 11/28 1956 Active URINE DRUG SCREEN FOR ER ONLY 11/28 1956 Active URINALYSIS 11/28 1956 Complete TROPONIN LEVEL 11/28 1956 Complete LIPASE 11/28 1956 Complete COMPREHENSIVE METABOLIC PANEL 11/28 1956 Complete CBC WITHOUT DIFFERENTIAL 11/28 1956 Complete AMYLASE 11/28 1956 Complete EKG 11/28 1930 Active Laboratory Tests 11/29/16 0632: Methadone Screen Pending, Barbiturate Screen Pending, Ur Phencyclidine Scrn Pending, Amphetamines Screen Pending, U Benzodiazepines Scrn Pending, Urine Cocaine Screen Pending, Urine Cannabis Screen Pending, Urinalysis LIGHT H, Urine Color YEL, Urine Clarity CLEAR, Urine pH 6.0, Ur Specific [place] 1.020, Urine Protein 30 H, Urine Ketones NEG, Urine Nitrite NEG, Urine Bilirubin NEG, Urine Urobilinogen 0.2, Ur Leukocyte Esterase NEG, Ur Microscopic SEDIMENT EXAMINED, Urine RBC 1-3, Ur Epithelial Cells RARE, Urine Bacteria RARE H, Urine Mucus RARE, Urine Hemoglobin TRACE-INTACT H, Urine Glucose NEG 11/28/162026: Anion Gap 17 H, Estimated GFR > 60, BUN/Creatinine Ratio 16.3, Glucose 131 H, Calcium 8.8, Total Bilirubin 0.5, AST 94 H, ALT 70, Alkaline Phosphatase 88, Troponin I 0.03, Total Protein 7.6, Albumin 4.5, Globulin 3.1, Albumin/Globulin Ratio 1.5, Amylase 59, Lipase 260, CBC w Diff NO MAN DIFF REQ, RBC 5.26, MCV 93.9, MCH 32.2 H, RDW 14.3, MPV 6.4 L, Gran % 60.6, Lymphocytes % 31.1, Monocytes % 6.5, Eosinophils % 1.5, Basophils % 0.3, Absolute Granulocytes 5.1, Absolute Lymphocytes 2.6, Absolute Monocytes 0.6, Absolute Eosinophils 0.1, Absolute Basophils 0, PUBS MCHC 34.3, Serum Alcohol 408.0 Initial ED EKG: pending (CRYSTAL GERARD DO) Hand-Off Endorsed To: CRYSTAL BUSTOS MD Endorsed Time: 0700 Pending: consult (case management) (JOHN PETERSON MD) Departure Departure Disposition: STILL A PATIENT Condition: Stable Clinical Impression Primary Impression: Alcohol intoxication Referrals: VENKATESH GREGG MD (PCP/Family) Departure Forms: Customer Survey General Discharge Information Comments 11/29/16 1:38 AM The patient was signed out to Dr. Peterson at 1 AM. He is for reevaluation and consideration of the case management evaluation in the a.m. (CRYSTAL GERARD DO) Critical Care Note Critical Care Note Critical Care Time: 30-74 min (CRYSTAL GERARD DO)
--- NOTE | 2016-11-28 20:02 | NUR ---
PT TO TRIAGE INTOXICATED, STATES "I DRANK A LOT TODAY" "I'M HERE BECAUSE I DRINK TO MUCH." PT DENIES THOUGHTS OF HURTNG HIMSELF. PT WAS ADMITTED FOR ETOH DETOX YESTERDAY BUT LEFT AMA
--- NOTE | 2016-11-28 20:16 | NUR ---
SECURITY AT BEDSIDE
--- NOTE | 2016-11-28 20:27 | NUR ---
1 BAG MEDS TAKEN TO PHARMACY, PER SECURITY 1 BELONGINGS BAG IN CLOSET, WANDED BY SECURITY AND IN BLUE SCRUBS, SITTERS CURRENTLY INVENTORYING VALUABLES.
[2016-11-28 20:34] LABS: ABSOLUTE BASOPHIL COUNT 0 /CUMM (0.0-0.2); ABSOLUTE EOSINOPHIL COUNT 0.1 /CUMM (0.0-0.7); ABSOLUTE GRANULOCYTE CT 5.1 /CUMM (1.4-6.5); ABSOLUTE LYMPH COUNT 2.6 /CUMM (1.2-3.4); ABSOLUTE MONOCYTE COUNT 0.6 /CUMM (0.10-0.60); BASOPHIL % 0.3 % (0.0-2.0); EOSINOPHIL % 1.5 % (0-5); GRANULOCYTE % 60.6 % (42.2-75.2); HEMATOCRIT 49.4 % (42-52); MEAN CORPUSCULAR HGB 32.2 PG (27.0-31.0); MEAN CORPUSCULAR HGB CONC 34.3 G/DL (33.0-37.0); MEAN CORPUSCULAR VOLUME 93.9 FL (80.0-94.0); MEAN PLATELET VOLUME 6.4 FL (7.4-10.4); PLATELET COUNT 183 /CUMM (130-400); RBC DISTRIBUTION WIDTH 14.3 % (11.5-14.5); RED BLOOD CELL CT 5.26 /CUMM (4.70-6.10); WHITE BLOOD CELL COUNT 8.5 /CUMM (4.8-10.8)
--- NOTE | 2016-11-28 21:43 | NUR ---
PT DENIES FEELING BETTER, BUT APPEARS MUCH MORE RELAXED, LESS ANXIOUS. SECOND LITER BOLUS COMPLETED AND IMPROVED TACHYCARDIA FROM 120'S TO 100'S. CONTINUES WITHOUT ECTOPY. O2 SAT 94% RA. UNABLE TO VOID AT THIS TIME. CALL BUSTOS IN REACH AND FRIEND REMAINS AT BEDSIDE. ASKING FOR FOOD DESPITE RECENT N/V AND EDUCATED ON RESTING STOMACH AND ADVANCING DIET WHEN APPROVED BY
--- NOTE | 2016-11-28 22:42 | NUR ---
PT INFORMED THAT HE WILL BE HELD OVERNIGHT DUE TO SERUM ETOH 408 AND UNABLE TO BE EVALUATED BY CRISIS UNTIL THE MORNING.
--- NOTE | 2016-11-28 22:50 | NUR ---
PT AWARE OF NEED FOR URINE SAMPLE. STILL UNABLE TO VOID
[2016-11-28 23:04] VITALS: BP 112/65
[2016-11-29] VITALS (15 sets, daily range): BP systolic 99–170; BP diastolic 57–108
--- NOTE | 2016-11-29 03:35 | NUR ---
AWAKE FOR V/S CIWA 0
--- NOTE | 2016-11-29 05:30 | NUR ---
AWKENED FOR VS. NO TREMORS OR SWEATINESS PRESENT SITTER PRESENT.
--- NOTE | 2016-11-29 07:36 | NUR ---
WOKE PT UP FOR CIWA AT THIS TIME, PT NOTED WITH BEADS OF SWEAT ON FOREHEAD. TREMORS NOTED. PT STATES HE IS NAUSEA (SMALL AMOUNT OF VOMIT NOTED IN BASIN AT BEDSIDE). MD AWARE
--- NOTE | 2016-11-29 07:52 | NUR ---
PT MEDICATED WITH 2MG PO ATIVAN AND 2MG IV ATIVAN AT THIS TIME PER ORDER.
--- NOTE | 2016-11-29 09:21 | NUR ---
PT APPEARS LESS SWEATY AT THIS TIME. REMAINS SLIGHTLY TREMULOUS BUT BETTER AFTER MEDICATION ADMINISTRATION. PT SLEEPY AT THIS TIME. REG RESP RATE NOTED. WILL CTM, SITTER REMAINS PRESENT.
--- NOTE | 2016-11-29 09:59 | NUR ---
LUNCH TRAY ORDERED
--- NOTE | 2016-11-29 11:04 | NUR ---
PT MEDICATED WITH 2MG IV ATIVAN AT THIS TIME PER CIWA. PT TREMULOUS, SWEATY AT THIS TIME.
--- NOTE | 2016-11-29 12:22 | NUR ---
PT MEDICATED WITH ATIVAN PER [facility] PROTOCOL.
--- NOTE | 2016-11-29 13:42 | NUR ---
PT RESTING ON STRETCHER, REPORTS INTERMITTENT NAUSEA, BUT WOULD NOT LIKE ANY NAUSEA MEDS YET.
--- NOTE | 2016-11-29 14:59 | NUR ---
PT NOTED TO BE TREMULOUS AND STATES HE IS SLIGHTLY NAUSEOUS AT THIS TIME.
--- NOTE | 2016-11-29 15:08 | NUR ---
PT MEDICATED WITH 2MG IV ATIVAN PER CIWA AT THIS TIME
--- NOTE | 2016-11-29 18:19 | NUR ---
11/29 CASE MGMT- PT [facility] #[id number] FOR 6 DAYS UNTIL 12/04/16. DR BUSTOS AND ADMITTING AWARE.
--- NOTE | 2016-11-29 20:37 | NUR ---
CONT TO AWAIT BED.
--- NOTE | 2016-11-29 21:06 | History & Physical ---
ARLETH MIN 11/29/162051: General Information and HPI MD Statement: I have seen and personally examined PATRICIO MONTESINOS and documented this H&P. The patient is a 46 year old M who presented with a patient stated chief complaint of alcohol detox Source of Information: patient, old records Exam Limitations: no limitations History of Present Illness: Mr Montesinos is a 46-year-old man was known to be in his usual state of health until a few days ago. He has a past medical history of alcohol withdrawal seizures ( last episode 7m ago), TIA (with no residual neurological deficits), hypertension and diabetes (not on any medications), avascular necrosis of left hip (replaced 2014). Multiple ER visits requesting alcohol detox, with last visit one day ago. He was brought to [place] ER by his friend requesting alcohol detox. As per the patient, his last alcohol use was the night prior. Reports heavy use of Rum every day. Also reported several personal events that brought about heavy alcohol use including of his spouse, loss of work and his residence. He also reported increased shakiness of his upper and lower extremities. No chest pain, palpitations or shortness of breath. Does not take any medications. No vision changes, and any loss of consciousness and poor recent seizures. No suicidal or homicidal ideation. Has not seen any psychiatrist. Last successful completion of alcohol detox was 2 years ago at a facility in [facility]. He remained sober for almos an year. Reports smoking 30 pk yrs. No IVDA. 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 SISTER (DM). SISTER FATHER (RETROPERITONEAL FIBROSIS). Psychosocial History Who Do You Live With? self Services at Home: None Functional Ability ADLs Independent: dressing, eating, toileting, bathing. Ambulation: independent IADLs Independent: shopping, housework, finances, food prep, telephone, transportation , medication admin. Review of Systems Review of Systems Constitutional: Reports: see HPI. Denies: chills, fever. EENTM: Denies: visual changes. Cardiovascular: Denies: edema, palpitations. Respiratory: Denies: cough, short of breath. GI: Denies: diarrhea, nausea. Genitourinary: Denies: hematuria. Musculoskeletal: Denies: back pain. Skin: Denies: change in skin color, dryness. Neurological/Psychological: Denies: anxiety, ataxia, confusion, emotional problems. Hematologic/Endocrine: Denies: bruising. Exam & Diagnostic Data Last 24 Hrs of Vital Signs/I&O Vital Signs Date Time Temp Pulse Resp B/P B/P Pulse O2 O2 Flow FiO2 Mean Ox Delivery Rate 11/29 2104 98.6 92 20 162/106 06/02 2103 98.6 92 20 162/100 95 Room Air 06/02 202 97.7 90 18 129/85 06/02 1917 97.7 90 18 129/85 93 Room Air 06/02 1816 96.6 109 18 163/107 94 Room Air 06/02 1728 97.0 98 18 148/90 06/02 1722 97.0 98 18 148/90 93 Room Air 06/02 1624 97.4 108 18 166/103 06/02 1609 97.4 108 18 166/103 94 Room Air 06/02 1459 98.9 117 18 160/102 06/02 1459 98.9 117 18 160/102 97 Room Air 06/02 1330 97.5 99 20 168/100 06/02 1330 97.5 99 15 168/100 94 Room Air Room Air 06/02 1209 98.1 93 20 162/103 93 Room Air Room Air 06/02 1208 98.1 93 20 162/103 06/02 1103 96.3 104 18 154/96 06/02 1058 96.3 104 18 154/96 94 06/02 0915 96.9 103 20 136/95 06/02 0858 96.9 103 20 136/95 96 06/02 0736 98.3 95 18 119/81 95 Room Air 06/02 0735 98.3 95 18 119/81 / 0530 96.0 93 16 127/87 / 0530 96.0 93 16 127/87 97 Room Air Room Air 11/29 0336 97.0 96 18 121/67 92 Room Air / 0333 97.0 96 18 121/67 / 0134 97.0 102 18 99/57 97 Room Air / 0133 97.0 102 18 99/57 06/ 2304 97.6 102 20 112/65 11/28 2252 97.6 102 20 112/65 97 Room Air 11/28 2143 98.5 108 14 115/73 94 Room Air Intake & Output 11/29 1600 06/ 0800 11/29 0000 Intake Total 3000 Output Total Balance 3000 Intake, IV 3000 Physical Exam General Appearance No Acute Distress Skin No Rashes, No Breakdown Skin Temp/Moisture Exam: Warm/Dry Sepsis Skin Exam (color): Normal for Ethnicity HEENT Atraumatic, PERRLA, EOMI Neck Supple, No JVD, No thryomegaly, +2 Carotid Pulse wo Bruit Lymphatic Cervical nl Cardiovascular Regular Rate, Normal S1, Normal S2, No Murmurs Lungs Normal Air Movement, expiratory wheezes b/l Abdomen Normal Bowel Sounds, Soft, No Tenderness Neurological Normal Gait, Normal Speech, Strength at 5/5 X4 Ext, Normal Tone, Sensation Intact, Cranial Nerves 3-12 NL, Reflexes 2+, tremors Extremities No Clubbing, No Cyanosis, No Edema, Normal Pulses Vascular Normal Pulses, Pulses Symmetrical Sepsis Peripheral Pulse Location: Dorsalis Pedis Sepsis Peripheral Pulse Exam: Normal Sepsis Cap Refill Exam: >2 sec Last 24 Hrs of Labs/Sj: Laboratory Tests 11/29/16 0632: Urine Opiates Screen < 100.00, Methadone Screen < 40, Barbiturate Screen < 60, Ur Phencyclidine Scrn < 6.00, Amphetamines Screen 152, U Benzodiazepines Scrn 472 H, Urine Cocaine Screen < 50, Urine Cannabis Screen 21.70, Urinalysis LIGHT H, Urine Color YEL, Urine Clarity CLEAR, Urine pH 6.0, Ur Specific [place]amm[place] 1.020, Urine Protein 30 H, Urine Ketones NEG, Urine Nitrite NEG, Urine Bilirubin NEG, Urine Urobilinogen 0.2, Ur Leukocyte Esterase NEG, Ur Microscopic SEDIMENT EXAMINED, Urine RBC 1-3, Ur Epithelial Cells RARE, Urine Bacteria RARE H, Urine Mucus RARE, Urine Hemoglobin TRACE-INTACT H, Urine Glucose NEG Diagnostic Data EKG Results Heart rate 116-tachycardia, normal axis. Normal QRS axis. No ST-T wave changes. Normal [place] intervals. CXR Results Was not done Assessment/Plan Assessment: He is a middle-aged man with a past history of alcohol withdrawal seizures, hypertension, and previous attempts at alcohol detox is being admitted for alcohol detox. At the time of admission, vitals-temperature 96.6, blood pressure 163/107 ( improved to 129/85), pulse rate 109 (improved to 90), respiratory rate 18, pulse ox 94% on room air. Lab findings indicated WBC 8.5, hemoglobin 16.9, platelets 183 (low, baseline 267), normal electrolytes sodium 141, potassium 4.0, bicarbonate 21, anion gap 17, normal renal function serum creatinine 0.8. Liver function-T bili 0.5, AST 94, ALT 17, alkaline phosphatase 88. Serum lipase 260, amylase 59. Urine toxicology revealed benzodiazepines 472 (unsure urine was collected after Ativan was administered), alcohol 408. Urinalysis clear with some trace hemoglobin. Differential diagnosis: #1 alcohol detox #2 substance abuse Below is the problem list and plan: #1 alcohol detox-patient to be monitored closely on the general medicine floor with recording CIWA every 1-2 hourly. Administer Ativan by mouth scheduled, as well as intravenous Ativan as per CIWA protocol to a certain the requirement of total Ativan need for the next 24 hours. Thiamine, multivitamin, folate. Psych evaluation for establishing outpatient care for possible detox. Since the patient has history of alcohol withdrawal seizures, close monitoring needed, if there is a need for ICU admission. No suicidal or homicidal ideation at this time. Reassess regularly. #2 DVT prophylaxis-subcutaneous heparin. As Ranked By This Provider Problem List: 1. S/P alcohol detoxification Core Measures/Miscellaneous Acute Coronary Syndrome ACS Diagnosis: No Cerebrovascular Accident CVA/TIA Diagnosis: No Congestive Heart Failure CHF Diagnosis: No Venous Thromboembolism VTE Risk Factors: Age > 40 [facility] prophylaxis d/t: No contraindications No VTE Pharm Prophylaxis d/t: No contraindications VTE Diagnosis: No VTE Type: NONE VTE Confirmed by (Test): NONE Severe Sepsis Severe Sepsis Present: No Septic Shock Septic Shock Present: No Miscellaneous Documentation Attending Case Discussed With: Dr Bond Primary Care Physician: VENKATESH GREGG MD Patient sees these Specialists None Level of Patient Care: General Medicine HANK NASSAR,[facility] 11/29/162133: Resident Review Statement Resident Statement: examined this patient, discussed with risk management intern, agreed with risk management intern Other Findings: 46-year-old man with a past medical history of alcohol withdrawal seizures ( last seizure 7 months ago), TIA (with no residual neurological deficits), hypertension and diabetes (not on any medications), avascular necrosis of left hip (replaced 2014), Multiple ER visits requesting alcohol detox, with last visit one day ago. He presents to [place] ER with his friend and is requesting alcohol detox. He actually left Against Medical Advice 3 days ago after being admitted for alcohol detox. He began drinking again and his last drink was last night 24 hours ago. He denies suicidal or homicidal ideation. Physical exam in the ED General: Middle aged man, resting calmly in bed. Not in acute Distress Skin: No Rashes, No Breakdown Skin: Temp/Moisture Exam: Warm/Dry HEENT: Atraumatic, PERRLA, EOMI Neck: Supple, No JVD, No thryomegaly, +2 Carotid Pulse wo Bruit Lymphatic: Cervical nl Cardiovascular: Regular Rate, Normal S1, Normal S2, No Murmurs Lungs: Normal Air Movement, expiratory wheezes b/l Abdomen: Normal Bowel Sounds, Soft, No Tenderness Neurological: Normal Gait, Normal Speech, Strength at 5/5 X4 Ext, Normal Tone, Sensation Intact, Cranial: Nerves 3-12 NL, Reflexes 2+, tremors present in outstretched hands Extremities No Clubbing, No Cyanosis, No Edema, Normal Pulses Vascular Normal Pulses, Pulses Symmetrical Significant lab findings: WBC 8.5, hemoglobin 16.9, platelets 183, normal electrolytes sodium 141, potassium 4.0, bicarbonate 21, anion gap 17, creatinine 0.8. Liver function-T bili 0.5, AST 94, ALT 17, alkaline phosphatase 88. Serum lipase 260, amylase 59. Urine toxicology revealed benzodiazepines 472, alcohol 408. Urinalysis showed some trace hemoglobin. Problem list 1. Alcohol withdrawal 2. Hypertension related to alcohol withdrawal 3. Diabetes mellitus Plan: Admit to Gen Med IV Ativan as per [facility] protocol PO ativan 2 mg Q 6 hrs seizure precautions Watch for severe withdrawal and low threshhold for ativan drip IV banana bag 1L x 1, then continue with PO multivitamins, thiamine and folic acid daily Clonidine 0.1 mg Q6 hrs PO lisinopril 5 mg daily Monitor electrolytes and relplete accordingly Novolog sliding scale TIDAC/HS Accuchecks TIDAC/HS Psych consult Social work consult DVT ppx SC lovenox Patient is full code ROMY BOND 11/30/16 0408: Attending MD Review Statement Attending Statement Attending MD Statement: examined this patient, discuss w/resident/PA/RN TRANSFER, agreed w/resident/PA/RN TRANSFER, reviewed EMR data (avail), reviewed images, amended to note Attending Assessment/Plan: CC: Alcohol withdrawal PMH: HTN: Not current treatment DM: Resolved after weight loss, left hip necrosis S/P surgery, alcoholism Patient presented to ER for alcohol withdrawal. He was here on November 26 and left AMA. Patient went home and drank again and was asked by his friend to go to ER again. Patient willing to stay this time for detoxification. Patient does carry a history of alcohol related seizures last one 7 months back. Patient drinks half a liter of Luc Omar every day denies homicidal or suicidal ideation complete ROS negative except anxiety and tremors, had vomiting once in ER. Vitals: Afebrile, intermittently tachycardic and hypertensive, saturating well on room air. On exam: A O 3, cooperative, no acute distress, tremors, diaphoresis, neck supple, JVD normal, no lymphadenopathy, mucosa moist, no focal neurological deficit, pupils equal reactive bilaterally, no dependent edema, no obvious skin rashes or inflammation CVS: S1-S2, RRR. RS: Clear to auscultate bilaterally. Abdomen: Soft, NT, ND, bowel sounds present. Labs: CBC unremarkable, bicarbonate 21, anion gap 17, AST 94, ALT 70, alkaline phosphatase 88, albumin 4.5, troponin 0.03, lipase 260, alcohol 408, benzodiazepine and 472 A and P 46-year-old male with significant alcohol history admitted for alcohol withdrawal + Alcohol detox + ? History of hypertension versus withdrawal related hypertension + History of Alcohol related seizure - Admit to general med - Seizure precaution - Scheduled by mouth Ativan 2 mg every 6, when necessary IV Ativan according to CIWA score - When necessary Ativan for seizure - Banana bag - Check CPK today to sample in lab and tomorrow morning - Check INR, CBC, BMP, LFT in a.m. - When necessary clonidine if persistently elevated blood pressure - DVT prophylaxis with Lovenox - Protonix 40 mg by mouth daily for alcohol related gastritis patient had one episode of vomiting
--- NOTE | 2016-11-29 22:32 | NUR ---
SLEEPING EASILY AROUSABLE, NO DISTRESS. VSS NOT MEETING ATIVAN CRITERIA.
--- NOTE | 2016-11-29 22:37 | NUR ---
PER MD MITCHELL STILL LOGGED LAB CALLED BY FIDEL JUAREZ
--- NOTE | 2016-11-29 23:22 | NUR ---
PT HAS A BED ASSIGNMENT 227-1.
--- NOTE | 2016-11-29 23:28 | NUR ---
DR. ANDERSON IN TO ASSESS PT, PT APPEARS TREMULOUS NO AHVH. MED WITH CATAPRES, ATIVAN PO AND BANANA BAG HUNG. PT REPORTS NON COMPLIANT WITH BP MEDS.
[2016-11-30] VITALS (13 sets, daily range): BP systolic 124–158; BP diastolic 90–106
--- NOTE | 2016-11-30 00:53 | NUR ---
SLEEPING DR. MCKINNEY CONTACTED RE: BP WILL PLACE ORDER FOR "SOMETHING"
--- NOTE | 2016-11-30 01:26 | NUR ---
BP REMAINS ELEVATED, UNABLE TO GIVE REPORT TO FLOOR.
--- NOTE | 2016-11-30 02:02 | NUR ---
DR. ALARCON AWARE OF CURRENT BP AND HR , HOUSESTAFF AWARE PT IS GOING TO FLOOR, PER DR GORDILLO, NO CURRENT ORDERS BP WILL COME DOWN WE DO NOT WANT IT TO COME DOWN TOO QUICKLY, PT CIWA 4. HR 80, NO S/S OF ACUTE WITHDRAWAL. SUPERVISIOR AWARE OF SAME WILL CONSULT FLOOR RN
--- NOTE | 2016-11-30 03:02 | NUR ---
REPORT TO ANALILIA. PT STABLE FOR TRANSPORT.
--- NOTE | 2016-11-30 03:09 | NUR ---
PT SENT TO 227 WITH 1 VALUABLES AND 1 BELONGINGS.
--- NOTE | 2016-11-30 04:09 | Admission Certification ---
Admission Certification Certification Statement - As attending physician, I certify that at the time of - admission, based on clinical presentation, severity of - symptoms, need for further diagnostic testing and - therapeutic interventions, and risk of adverse outcomes - without in-hospital treatment, in my clinical assessment, - this patient requires an acute hospital stay for a minimum - of two nights or longer. I have also considered psychsocial - factors such as support system, advanced age, financial - issues, cognitive issues, and failed out-patient treatments, - past re-admission history, safety of patient, and lack of - compliance as applicable. Specific rationale supporting this admission is: Alcohol detox
--- NOTE | 2016-11-30 05:00 | NUR ---
PT A/O X3. ON RA. VSS. DENIES PAIN. REFUSED BED ALARM. STEADY ON FEET. -SI. SKIN INT. SEIZURE PREC IN PLACE. PT HAD A SEIZURE 3 DAYS AGO. BP 152/100. DR SHABAZZ AWARE. GOT LISINOPRIL IN ER. WILL GET CLONIDINE @ 6AM. BS 74 AT 0430 AND 78 @ 0615. NO ACUTE DISTRESS. WILL MONITOR.
--- NOTE | 2016-11-30 13:21 | PN- Att Addend ---
Attending Addendum Attending Brief Note Patient seen and examined, not feeling so well. Feeling depressed. Still has some shakes. Vital Signs Date Time Temp Pulse Resp B/P B/P Pulse O2 O2 Flow FiO2 Mean Ox Delivery Rate 06/ 1101 70 130/100 06/03 1101 70 130/100 06/03 0621 74 148/104 06/03 0620 74 20 148/104 95 Room Air 06/03 0600 98.1 77 18 158/106 95 Room Air 06/03 0331 97.7 83 18 152/100 93 Room Air 06/03 0235 80 150/100 06/03 0202 96.0 80 16 153/102 06/03 0153 96.0 80 16 153/102 96 Room Air 06/03 0110 96.4 76 16 154/104 06/03 0051 96.4 76 16 154/104 06/03 0029 96.4 76 16 154/104 95 Room Air 06/02 2332 97.1 80 20 170/108 95 06/02 2331 97.1 80 20 170/108 06/02 2327 97.1 22 95 170/108 06/02 2236 98.3 74 20 147/90 06/02 2233 98.3 74 20 147/90 95 Room Air 06/02 2105 98.6 92 20 162/106 06/02 2103 98.6 92 20 162/100 95 Room Air 06/02 2025 97.7 90 18 129/85 06/02 1917 97.7 90 18 129/85 93 Room Air 06/02 1816 96.6 109 18 163/107 94 Room Air 06/02 1728 97.0 98 18 148/90 06/02 1722 97.0 98 18 148/90 93 Room Air 06/02 1624 97.4 108 18 166/103 06/02 1609 97.4 108 18 166/103 94 Room Air 06/02 1459 98.9 117 18 160/102 06/02 1459 98.9 117 18 160/102 97 Room Air 06/02 1330 97.5 99 20 168/100 06/02 1330 97.5 99 15 168/100 94 Room Air Room Air on exam; aox3, nad. cv; s1,s2, rrr resp; clear abd; soft, nt, bs+ ext; no edema. Laboratory Tests 11/30 0640 Chemistry Sodium (137 - 145 mmol/L) 136 L Potassium (3.5 - 5.1 mmol/L) 3.3 L Chloride (98 - 107 mmol/L) 102 Carbon Dioxide (22 - 30 mmol/L) 26 Anion Gap (5 - 16) 8 BUN (9 - 20 mg/dL) 11 Creatinine (0.7 - 1.2 mg/dL) 0.6 L Estimated GFR (>60 ml/min) > 60 BUN/Creatinine Ratio (7 - 25 %) 18.3 A/P; 46-year-old male with past medical history significant for alcohol use, hypertension, diabetes who is admitted with acute alcohol intoxication needing detox. CIWA scores are running in acceptable range for now. Can decrease scheduled Ativan to 1.5 mg q6 hours and continue prn. Patient on clonidine nd lisinopril for blood pressure control. Continue multivitamin, folate and thiamine. Please replete potassium and recheck in the morning. DVT px; Lovenox. SW and Psych Eval on Friday. Pt feels depressed.
[2016-12-01] VITALS (8 sets, daily range): BP systolic 120–142; BP diastolic 73–100
--- NOTE | 2016-12-01 08:46 | PN- Housestaff ---
Subjective Follow-up For: Alcohol detoxification Subjective: I followed up and examined the patient today. He is resting comfortably in bed, is anxious about his living condition, has tremors, and headache. He is requesting nicotine substitution for his smoking today. His vitals have been stable with only one reading of high diastolic blood pressure of 100. No overnight issues reported from the nursing staff. Review of Systems Constitutional: Reports: see HPI. Objective Last 24 Hrs of Vital Signs/I&O Vital Signs Date Time Temp Pulse Resp B/P B/P Pulse O2 O2 Flow FiO2 Mean Ox Delivery Rate 12/01 1503 98.0 94 20 122/74 98 / 1033 112/84 12/01 1033 112/84 / 0800 Room Air / 0647 73 120/100 / 0600 97.7 73 20 120/100 94 Room Air 06/ 0207 98.5 68 20 142/80 97 Room Air / 2357 73 142/102 / 2207 98.0 83 20 124/90 94 Room Air / 2200 98.5 73 20 136/100 06/03 2033 136/100 06/03 2000 98.5 73 20 136/100 06/03 1819 136/100 06/03 1806 98.5 73 20 136/100 96 Room Air 06/03 1800 98.5 73 20 136/100 Intake & Output /04 1600 06/04 0800 06/04 0000 Intake Total 800 100 450 Output Total Balance 800 100 450 Intake, Oral 800 100 450 Physical Exam General Appearance: Alert, Oriented X3, Cooperative, anxious Other Physical Findings: Skin No Rashes, No Breakdown HEENT Atraumatic, PERRLA, EOMI Neck Supple, No JVD Lymphatic Cervical nl Cardiovascular Regular Rate, Normal S1, Normal S2, No Murmurs Lungs Normal Air Movement, no added sound heard Abdomen Normal Bowel Sounds, Soft, No Tenderness Neurological Normal Gait, Normal Speech, grossly intact Extremities No Clubbing, No Cyanosis, No Edema, Normal Pulses Vascular Normal Pulses, Pulses Symmetrical Psych Coherant, no SI/HI. Current Medications: Current Medications Sig/Beny Start time Last Medication Dose Route Stop Time Status Admin Acetaminophen 650 MG Q6P PRN 11/29 2230 AC PO Amlodipine Besylate 5 MG DAILY 11/30 1945 AC 12/01 PO 1033 Clonidine 0.1 MG Q6 11/29 2359 AC 12/01 PO 1157 Enoxaparin Sodium 40 MG DAILY 11/30 1000 AC SC Folic Acid 1 MG DAILY 11/30 1000 AC 12/01 PO 1032 Insulin Aspart 0 AT BEDTIME 11/30 2200 AC SC Insulin Aspart 0 TIDAC 11/30 0800 AC SC Lisinopril 5 MG DAILY 11/30 1000 AC 12/01 PO 1033 Lorazepam 1 MG Q6 12/01 1800 AC PO Lorazepam 1.5 MG Q6 11/30 1800 DC 12/01 PO 1157 Lorazepam See Dose Q1P PRN 11/29 2215 AC 11/30 Insts (1) IV 1205 Multivitamins 1 TAB DAILY 11/30 1000 AC 12/01 PO 1032 Nicotine 2 MG Q2P PRN 12/01 1215 AC 12/01 PO 1303 Nicotine 14 MG DAILY 12/01 1213 AC 12/01 TOP 1303 Omeprazole 40 MG DAILY AC 11/30 0700 AC 12/01 PO 0647 Potassium Chloride 40 MEQ ONCE ONE 12/01 1030 DC 12/01 PO 12/01 1031 1033 Thiamine HCl 100 MG DAILY 11/30 1000 AC 12/01 PO 1032 Dose Instructions: (1)Lorazepam: See admin criteria Last 24 Hrs of Lab/Sj Results Last 24 Hrs of Labs/Mics: Laboratory Tests 12/01/16 0655: Anion Gap 9, Estimated GFR > 60, BUN/Creatinine Ratio 17.1, Magnesium 1.9 Assessment/Plan Assessment: 46-year-old male with past medical history of alcohol withdrawal seizures, with multiple attempts for detoxification, hypertension, was admitted to the general medical floor from the emergency department for the following issues: #Alcohol detoxification Patient is currently on a CIWA protocol, undergoing alcohol detoxification, with oral scheduled Ativan which is being tapered daily according to patient's progress, and IV Ativan as needed. Overnight his CIWA scores have been on the lower end with maximum being 4, mostly for tremors and anxiety. Patient seems to be improving and tolerating detox well. He is asking for a nicotine substitute for smoking today. * Continue to taper oral Ativan to 1 mg 3 times a day today * Continue IV Ativan as needed according to CIWA protocol * Continue supplements/vitamins * Appreciated psychiatric consultation * Awaiting social work consultation #Hypertension Patient's home medication list only has clonidine and it, but his blood pressure was persistently high thus amlodipine was started from Friday yesterday. His blood pressure seems to be trending towards normal reading today, with only one diastolic pressure reading 100. * Continue amlodipine 5 mg orally daily. * Continue lisinopril 5 mg daily. Can go higher on lisinopril dose if necessary. #Hypokalemia * Continue repleting potassium, with daily BEP checks. Magnesium has been near normal. #Diet regular diet #DVT ppx with Lovenox #Code status: Full code Problem List: 1. Alcohol dependency 2. Hypokalemia Pain Ratin Pain Location: - Pain Goal: Pain 4 or less Pain Plan: prn Tomorrow's Labs & Rationales: BEP
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
--- NOTE | 2016-12-01 13:20 | PN- Att Addend ---
Attending Addendum Attending Brief Note Patient seen and examined, still feels anxious. Still feels depressed. Seen by psychiatry. CIWA scores are running low. Vital Signs Date Time Temp Pulse Resp B/P B/P Pulse O2 O2 Flow FiO2 Mean Ox Delivery Rate 12/01 1033 112/84 12/01 1033 112/84 12/01 0647 73 120/100 06/04 0600 97.7 73 20 120/100 94 Room Air 06/04 0207 98.5 68 20 142/80 97 Room Air 06/03 2357 73 142/102 06/03 2207 98.0 83 20 124/90 94 Room Air 06/ 2200 98.5 73 20 136/100 06/03 2033 136/100 06/03 2000 98.5 73 20 136/100 06/03 1819 136/100 06/03 1806 98.5 73 20 136/100 96 Room Air 06/03 1800 98.5 73 20 136/100 06/03 1600 98.6 80 18 142/92 06/03 1412 98.6 80 18 142/92 94 on exam; aox3, nad. cv; s1,s2, rrr resp; clear abd; soft, nt, bs+ ext; no edema. Laboratory Tests 12/01 0655 Chemistry Sodium (137 - 145 mmol/L) 138 Potassium (3.5 - 5.1 mmol/L) 3.4 L Chloride (98 - 107 mmol/L) 102 Carbon Dioxide (22 - 30 mmol/L) 27 Anion Gap (5 - 16) 9 BUN (9 - 20 mg/dL) 12 Creatinine (0.7 - 1.2 mg/dL) 0.7 Estimated GFR (>60 ml/min) > 60 BUN/Creatinine Ratio (7 - 25 %) 17.1 Magnesium (1.6 - 2.3 mg/dL) 1.9 A/P; 46-year-old male with past medical history significant for alcohol use, hypertension, diabetes who is admitted with acute alcohol intoxication needing detox. Continue to taper Ativan, decreased scheduled Ativan to 1 mg every 6 hours. Continue prn Ativan, MVI, thiamine and folic acid. Appreciate psychiatry input. Blood pressure stable on current regimen. DVT px: Lovenox. Patient be seen by social services director and the more
[2016-12-02] VITALS (10 sets, daily range): BP systolic 110–124; BP diastolic 64–80
--- NOTE | 2016-12-02 07:58 | PN- Housestaff ---
See Addendum Subjective Follow-up For: Alcohol detoxification Subjective: I followed up and examined the patient today. He is resting comfortably in bed, he still has some sweating, tremors, anxiety. His CIWA scores overnight has been from 0-3, maximum 4 at one time, mainly for anxiety and tremor. Review of Systems Constitutional: Reports: see HPI. Objective Last 24 Hrs of Vital Signs/I&O Vital Signs Date Time Temp Pulse Resp B/P B/P Pulse O2 O2 Flow FiO2 Mean Ox Delivery Rate / 1600 98.0 96 20 118/64 06/05 1426 98.0 96 20 118/64 94 Room Air 06/05 0903 118/76 06/05 0903 120/76 06/05 0800 98.8 87 18 120/76 06/05 0657 114/80 06/05 0630 97.9 87 18 122/70 97 Room Air 06/05 0200 98.2 90 20 124/80 97 Room Air 06/05 0055 118/84 06/04 2200 98.0 92 20 128/73 06/04 2000 98.0 92 20 128/73 06/04 1956 98.0 92 20 128/73 98 Room Air Intake & Output / 1600 06/05 0800 06/05 0000 Intake Total 1700 450 Output Total Balance 1700 450 Intake, Oral 1700 450 Physical Exam General Appearance: Alert, Oriented X3, Cooperative, ANXIOUS Other Physical Findings: Patient has fine tremors, mild anxiety, sweating, and tachycardia. Rest of the physical examination is within normal limits. Patient does not have suicidal or homicidal ideation. Current Medications: Current Medications Sig/Beny Start time Last Medication Dose Route Stop Time Status Admin Acetaminophen 650 MG Q6P PRN 11/29 2230 AC PO Amlodipine Besylate 5 MG DAILY 11/30 1945 AC 12/02 PO 0903 Clonidine 0.1 MG Q6 12/02 0645 DC 12/02 PO 0657 Clonidine 0.1 MG Q6 11/29 2359 DC 12/02 PO 0055 Enoxaparin Sodium 40 MG DAILY 11/30 1000 AC SC Folic Acid 1 MG DAILY 11/30 1000 AC 12/02 PO 0901 Insulin Aspart 0 AT BEDTIME 11/30 2200 AC SC Insulin Aspart 0 TIDAC 11/30 0800 AC SC Lisinopril 5 MG DAILY 11/30 1000 AC 12/02 PO 0903 Lorazepam 0.5 MG TID 12/02 1000 AC 12/02 PO 12/08 1759 1525 Lorazepam 1 MG Q6 12/01 1800 DC 12/02 PO 0654 Lorazepam See Dose Q1P PRN 11/29 2215 AC 12/02 Insts (1) IV 1525 Multivitamins 1 TAB DAILY 11/30 1000 AC 12/02 PO 0903 Nicotine 14 MG DAILY 12/01 2030 AC 12/02 TOP 0903 Nicotine 2 MG Q2P PRN 12/01 1215 AC 12/02 PO 1747 Nicotine 14 MG DAILY 12/01 1213 DC 12/01 TOP 1303 Omeprazole 40 MG DAILY AC 11/30 0700 AC 12/02 PO 0658 Patient Medication 1 ED .STK-MED ONE 12/02 1414 DC Teaching ED 12/02 1415 Potassium Chloride 40 MEQ ONCE ONE 12/02 0945 DC 12/02 PO 12/02 0946 1258 Potassium Chloride 40 MEQ ONCE ONE 12/02 0830 CAN PO 12/02 0831 Thiamine HCl 100 MG DAILY 11/30 1000 AC 12/02 PO 0903 Dose Instructions: (1)Lorazepam: See admin criteria Last 24 Hrs of Lab/Sj Results Last 24 Hrs of Labs/Mics: Laboratory Tests 12/02/16 0640: Anion Gap 9, Estimated GFR > 60, BUN/Creatinine Ratio 21.4, Creatine Kinase 161 Assessment/Plan Assessment: 46-year-old male with past medical history of alcohol withdrawal seizures, with multiple attempts for detoxification, hypertension, was admitted to the general medical floor from the emergency department for the following issues: #Alcohol detoxification Patient is currently on a CIWA protocol, undergoing alcohol detoxification, with oral scheduled Ativan which is being tapered daily according to patient's progress, and IV Ativan as needed. Overnight his CIWA scores have been on the lower end with maximum being 4, mostly for tremors and anxiety. Patient seems to be improving and tolerating detox well. He is asking for a nicotine substitute for smoking today. * Continue to taper oral Ativan to 0.5 mg 3 times a day today * Continue IV Ativan as needed according to CIWA protocol * Continue supplements/vitamins * Appreciated psychiatric consultation * Appreciated social work consultation. patient can leave when his detox is over. he seems to have enough fund per social sciences lecturer to even got o a motel/ similar accommodations on discharge. However, he has been given list of contacts for accommodation arrangements by [facility]. #Hypertension Patient's home medication list only has clonidine and it, but his blood pressure was persistently high thus amlodipine was started from Friday. His blood pressure seems to be trending towards normal reading today. Discontinued clonidine, that was ordered as [facility] protocol. Patient will leave with at least one anti-hypertensive medication on discharge. * Continue amlodipine 5 mg orally daily. * Continue lisinopril 5 mg daily. Can go higher on lisinopril dose if necessary. #Hypokalemia * Continue repleting potassium, with daily BEP checks. Magnesium has been near normal. #Of note, patient does not take any medications at home. #Diet regular diet #DVT ppx with Lovenox #Code status: Full code Problem List: 1. Alcohol dependence with withdrawal 2. Nicotine dependence Pain Ratin Pain Location: - Pain Goal: Pain 4 or less Pain Plan: prn Tomorrow's Labs & Rationales: BEP for hypokalemia
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
--- NOTE | 2016-12-02 21:27 | Patient Discharge Instructions ---
Discharge Instructions General Discharge Information You were seen/treated for: Alcohol detoxification Special Instructions: Avoid alcohol. Please visit your primary care physician within 7-10 days of discharge. Please return to emergency if symptoms worsen. Diet Continue normal diet: Yes Recommended Diet: Heart Healthy Activity Full Activity/No Limits: Yes Acute Coronary Syndrome Inclusion Criteria At DC or during hospital stay patient has or had the following: ACS DIAGNOSIS No Discharge Core Measures Meds if any: Prescribed or Continued at Discharge Meds if any: NOT Prescribed or Continued at Discharge Congestive Heart Failure Inclusion Criteria At DC or during hospital stay patient has or had the following: CHF DIAGNOSIS No Discharge Core Measures Meds if any: Prescribed or Continued at Discharge Meds if any: NOT Prescribed or Continued at Discharge Cerebrovascular accident Inclusion Criteria At DC or during hospital stay patient has or had the following: CVA/TIA Diagnosis No Discharge Core Measures Meds if any: Prescribed or Continued at Discharge Meds if any: NOT Prescribed or Continued at Discharge Venous thromboembolism Inclusion Criteria VTE Diagnosis No VTE Type NONE VTE Confirmed by (Test) NONE Discharge Core Measures - Per Current guidelines, there needs to be overlap - treatment for the first 5 days of Warfarin therapy. - If discharged on Warfarin prior to 5 days of - overlap therapy, the patient will need to be - assessed for post discharge needs including - *Post discharge parental anticoagulation - *Warfarin and/or parental anticoagulation education - *Follow up date to check INR post discharge At least 5 days overlap therapy as Inpatient No Meds if any: Prescribed or Continued at Discharge Note: Overlap Therapy is Warfarin and Anticoagulant Meds if any: NOT Prescribed or Continued at Discharge
[2016-12-02] MEDS ORDERED: VITAMIN B-1100 MG PO (21:31)
[2016-12-02] MEDS ORDERED: FOLIC ACID1 M1 PO (21:31)
[2016-12-02] MEDS ORDERED: ONE DAILY MULT1 EAC2 PO (21:31)
[2016-12-03] VITALS (9 sets, daily range): BP systolic 100–120; BP diastolic 60–90
--- NOTE | 2016-12-03 06:08 | PN- Housestaff ---
See Addendum Subjective Follow-up For: Alcohol detoxification Subjective: Patient seen and examined this morning. Resting comfortably in bed with no acute complaints. No events reported overnight. He feels better overall but still has some tremors in the hands and mild muscle cramp in the LUE. CIWA score ranging 0 -9, requiring a total of 2mg of IV Ativan PRN over the past 24 hours. Denies any fever, chills, chest discomfort, palpitations, dyspnea abdominal pain, nausea, vomiting, headache, hallucinations, diaphoresis. Review of Systems Constitutional: Reports: see HPI. Objective Last 24 Hrs of Vital Signs/I&O Vital Signs Date Time Temp Pulse Resp B/P B/P Pulse O2 O2 Flow FiO2 Mean Ox Delivery Rate 12/03 0655 97.9 77 20 114/88 95 Room Air / 0226 98.3 82 20 110/90 94 Room Air / 0200 98.2 82 20 110/90 06/06 0000 98.8 80 20 118/70 06/05 2210 98.8 80 20 118/70 97 Room Air 06/05 2200 98.8 80 20 118/70 06/05 2000 98.8 86 20 110/74 06/05 1848 98.8 86 20 110/74 95 06/05 1800 98.8 86 20 110/74 06/05 1600 98.0 96 20 118/64 06/05 1426 98.0 96 20 118/64 94 Room Air 06/05 0903 118/76 06/05 0903 120/76 Intake & Output 06/06 1600 06/06 0800 06/06 0000 Intake Total 240 450 Output Total Balance 240 450 Intake, Oral 240 450 Number 0 Bowel Movements Physical Exam General Appearance: Alert, Oriented X3, Cooperative, No Acute Distress Other Physical Findings: Skin No Rashes, No Breakdown Skin Temp/Moisture Exam: Warm/Dry Sepsis Skin Exam (color): Normal for Ethnicity HEENT Atraumatic, PERRLA, EOMI Neck Supple, No JVD, No thryomegaly, +2 Carotid Pulse wo Bruit Lymphatic Cervical nl Cardiovascular Regular Rate, Normal S1, Normal S2, No Murmurs Lungs Normal Air Movement, expiratory wheezes b/l Abdomen Normal Bowel Sounds, Soft, No Tenderness Neurological Normal Gait, Normal Speech, Strength at 5/5 X4 Ext, Normal Tone, Sensation Intact, Cranial Nerves 3-12 NL, Reflexes 2+, tremors Extremities No Clubbing, No Cyanosis, No Edema, Normal Pulses Vascular Normal Pulses, Pulses Symmetrical Current Medications: Current Medications Sig/Beny Start time Last Medication Dose Route Stop Time Status Admin Acetaminophen 650 MG Q6P PRN 11/29 2230 AC PO Amlodipine Besylate 5 MG DAILY 11/30 1945 AC 12/02 PO 0903 Enoxaparin Sodium 40 MG DAILY 11/30 1000 AC SC Folic Acid 1 MG DAILY 11/30 1000 AC 12/02 PO 0901 Insulin Aspart 0 AT BEDTIME 11/30 2200 AC SC Insulin Aspart 0 TIDAC 11/30 0800 AC SC Lisinopril 5 MG DAILY 11/30 1000 AC 12/02 PO 0903 Lorazepam 0.5 MG TID 12/02 1000 AC 12/02 PO 12/08 1759 2233 Lorazepam See Dose Q1P PRN 11/29 2215 AC 12/02 Insts (1) IV 2356 Multivitamins 1 TAB DAILY 11/30 1000 AC 12/02 PO 0903 Nicotine 14 MG DAILY 12/01 2030 AC 12/02 TOP 0903 Nicotine 2 MG Q2P PRN 12/01 1215 AC 12/02 PO 1747 Omeprazole 40 MG DAILY AC 11/30 0700 AC 12/03 PO 0609 Patient Medication 1 ED .STK-MED ONE 12/02 1414 DC Teaching ED 12/02 1415 Potassium Chloride 40 MEQ ONCE ONE 12/02 0945 DC 12/02 PO 12/02 0946 1258 Thiamine HCl 100 MG DAILY 11/30 1000 AC 12/02 PO 0903 Dose Instructions: (1)Lorazepam: See admin criteria Last 24 Hrs of Lab/Sj Results Last 24 Hrs of Labs/Mics: Laboratory Tests 12/03/16 0744: Sodium Pending, Potassium Pending, Chloride Pending, Carbon Dioxide Pending, Anion Gap Pending, BUN Pending, Creatinine Pending, BUN/Creatinine Ratio Pending , Magnesium Pending Assessment/Plan Assessment: 46-year-old male with past medical history of alcohol withdrawal seizures with multiple attempts for detoxification, hypertension, admitted to the general medical service for alcohol detox. #Alcohol detoxification * Vitals per protocol * Continue Ativan 0.5 mg TID, taper tomorrow * PRN Ativan IV per CIWA protocol * Continue supplements/vitamins * Appreciate psych and social work recs #Hypertension Patient remains normotensive and HDS. * Continue Norvasc 5mg PO QD * Continue lisinopril 5mg PO QD #Hypokalemia * Monitor BEP, replete as needed - Regular diet - Mild pain pathway - DVT ppx with Lovenox - Full code Problem List: 1. Alcohol withdrawal syndrome 2. Anxiety 3. Nicotine dependence 4. Tremor 5. Hypertension Pain Ratin Pain Location: LUE musc cramps Pain Goal: Remain pain free Pain Plan: Mild pathway Tomorrow's Labs & Rationales: BEP - hypokalemia
[2016-12-04] VITALS: BP 120/90
[2016-12-04 02:00] VITALS: BP 120/90
[2016-12-04 04:00] VITALS: BP 120/90
--- NOTE | 2016-12-04 05:58 | PN- Housestaff ---
See Addendum Subjective Follow-up For: Alcohol detoxification Subjective: Patient seen and examined this morning. Resting comfortably in bed with no acute complaints. No events reported overnight. Max CIWA score 4 overnight. Required 1mg of IV Ativan PRN over the past 24 hours. Reports tremors are almost gone. CIWA score ranging 0-9, requiring a total of 2mg of IV Ativan PRN over the past 24 hours. Denies any fever, chills, chest discomfort, palpitations, dyspnea abdominal pain, nausea, vomiting, headache, hallucinations, diaphoresis. Review of Systems Constitutional: Reports: see HPI. Objective Last 24 Hrs of Vital Signs/I&O Vital Signs Date Time Temp Pulse Resp B/P B/P Pulse O2 O2 Flow FiO2 Mean Ox Delivery Rate 12/04 0939 83 122/76 06/ 0938 83 122/76 06/ 0603 98.6 83 20 122/76 96 Room Air 06/07 0600 98.6 83 18 122/76 06/07 0400 97.6 100 18 120/90 06/07 0200 97.6 100 18 120/90 06/07 0000 97.6 100 18 120/90 06/06 2229 97.6 100 20 120/90 97 06/06 1806 98.3 100 20 116/60 96 Room Air 06/06 1800 97.4 101 16 116/70 06/06 1405 98.0 88 20 100/64 99 Intake & Output 06/07 1600 06/07 0800 06/07 0000 Intake Total 120 1510 Output Total Balance 120 1510 Intake, IV 10 Intake, Oral 120 1500 Physical Exam General Appearance: Alert, Oriented X3, Cooperative, No Acute Distress Other Physical Findings: Skin No Rashes, No Breakdown Skin Temp/Moisture Exam: Warm/Dry Sepsis Skin Exam (color): Normal for Ethnicity HEENT Atraumatic, PERRLA, EOMI Neck Supple, No JVD, No thryomegaly, +2 Carotid Pulse wo Bruit Lymphatic Cervical nl Cardiovascular Regular Rate, Normal S1, Normal S2, No Murmurs Lungs Normal Air Movement, expiratory wheezes b/l Abdomen Normal Bowel Sounds, Soft, No Tenderness Neurological Normal Gait, Normal Speech, Strength at 5/5 X4 Ext, Normal Tone, Sensation Intact, Cranial Nerves 3-12 NL, Reflexes 2+, tremors Extremities No Clubbing, No Cyanosis, No Edema, Normal Pulses Vascular Normal Pulses, Pulses Symmetrical Current Medications: Current Medications Sig/Beny Start time Last Medication Dose Route Stop Time Status Admin Acetaminophen 650 MG Q6P PRN 11/29 2230 AC PO Amlodipine Besylate 5 MG DAILY 11/30 1945 AC 12/04 PO 0939 Enoxaparin Sodium 40 MG DAILY 11/30 1000 AC SC Folic Acid 1 MG DAILY 11/30 1000 AC 12/04 PO 0939 Insulin Aspart 0 AT BEDTIME 11/30 2200 AC SC Insulin Aspart 0 TIDAC 11/30 0800 AC SC Lisinopril 5 MG DAILY 11/30 1000 AC 12/04 PO 0938 Lorazepam 0.5 MG TID 12/02 1000 AC 12/04 PO 12/08 1759 0937 Lorazepam See Dose Q1P PRN 11/29 2215 AC 12/03 Insts (1) IV 1252 Magnesium Chloride 64 MG ONCE ONE 12/03 1230 DC 12/03 PO 12/03 1231 1407 Magnesium Chloride 64 MG BID 12/03 1213 DC PO 12/03 2201 Melatonin 3 MG ONCE ONE 12/03 2100 DC 12/03 PO 12/03 2101 2110 Multivitamins 1 TAB DAILY 11/30 1000 AC 12/04 PO 0939 Nicotine 14 MG DAILY 12/01 2030 AC 12/04 TOP 0939 Nicotine 2 MG Q2P PRN 12/01 1215 AC 12/03 PO 1627 Omeprazole 40 MG DAILY AC 11/30 0700 AC 12/04 PO 0542 Potassium Chloride 10 MEQ ONCE ONE 12/03 1215 DC 12/03 PO 12/03 1216 1407 Ramelteon 8 MG ONCE ONE 12/04 0030 DC 12/04 PO 12/04 0031 0033 Thiamine HCl 100 MG DAILY 11/30 1000 AC 12/04 PO 0938 Dose Instructions: (1)Lorazepam: See admin criteria Assessment/Plan Assessment: 46-year-old male with past medical history of alcohol withdrawal seizures with multiple attempts for detoxification, hypertension, admitted to the general medical service for alcohol detox. #Alcohol detoxification * Vitals per protocol * Continue Ativan taper, decrease to 0.5 mg BID today * PRN Ativan IV per CIWA protocol * Continue supplements/vitamins * Appreciate psych and social work recs #Hypertension Patient remains normotensive and HDS. * Continue Norvasc 5mg PO QD * Continue lisinopril 5mg PO QD - Regular diet - Mild pain pathway - DVT ppx with Lovenox - Full code Problem List: 1. Nicotine dependence 2. Alcohol dependence with withdrawal 3. Anxiety Pain Ratin Pain Location: 0 Pain Goal: Remain pain free Pain Plan: MILD Tomorrow's Labs & Rationales: None
[2016-12-04 06:00] VITALS: BP 122/76
[2016-12-04 06:03] VITALS: BP 122/76
[2016-12-04] MEDS ORDERED: LISINOPRIL5 M1 PO (06:05)
[2016-12-04] MEDS ORDERED: AMLODIPINE BESYL5 M1 PO (06:05)
[2016-12-04] MEDS ORDERED: OMEPRAZOLE20 M2 PO (06:05)
[2016-12-04] MEDS ORDERED: ATIVAN0.5 M1 PO (06:05)
[2016-12-04 09:39] VITALS: BP 122/76
--- NOTE | 2016-12-04 20:18 | NUR ---
Late Entry: Aware of patients discharge this afternoon. I met with the patient along with Dr. Jacobs, and patient was dressed and ready to go. When queried about where he might go, he says "I don't know, I guess I'll go to a hotel; I'm gonna see a new apartment on Friday". Luis Armando reports no interest in formal aftercare assistance or referrals; able to identify reasons why remaining in an inpatient setting would be inappropriate.
--- NOTE | 2016-12-10 13:01 | Discharge Summary ---
Visit Information Visit Dates Admission Date: 11/29/16 Discharge Date: 12/04/16 Hospital Course Course Attending Physician: JUDY ZAMARRIPA MD Primary Care Physician: MARYSOL NASSAR,[facility] Course: 46-year-old male with past medical history of alcohol withdrawal seizures with multiple attempts for detoxification, hypertension, admitted to the general medical service for alcohol detox. #Alcohol detoxification Patient received scheduled doses of Ativan, initially at 2mg Q6H and then tapered off. He also received PRN doses of IV Ativan per [facility] protocol. Patient improved with appropriate response to Ativan. He was discharged on 3 more tablets of 0.5mg PO Ativan for 3 day taper. He was supplemented with folate, thiamine and B12. #Hypertension Patient was started on Norvasc 5mg PO QD and lisinopril 5mg PO QD. - Regular diet - Mild pain pathway - DVT ppx with Lovenox - Full code Allergies: Coded Allergies: NO KNOWN ALLERGIES (11/17/15) Disposition Summary Disposition Principal Diagnosis: Alcohol withdrawal Additional Diagnosis: Hypertension Discharge Disposition: home or self care Discharge Instructions General Discharge Information Code Status: Full Code Patient's Diet: Regular Patient's Activity: As tolerated Follow-Up Instructions/Appts: Avoid alcohol. Please visit your primary care physician within 7-10 days of discharge. Please return to emergency if symptoms worsen. Medications at Discharge Discharge Medications: Start taking the following new medications: Amlodipine Besylate (Amlodipine Besylate) 5 MG TABLET 5 Milligram ORAL DAILY Qty = 30 Refills = 1 Comments: Last Taken: 12/04/16 Time: 10AM Omeprazole (Omeprazole) 20 MG CAPSULE.DR 40 Milligram ORAL DAILY BEFORE BREAKFAST Qty = 14 No Refills Comments: Last Taken: 12/04/16 Time: 6AM Lisinopril (Lisinopril) 5 MG TABLET 5 Milligram ORAL DAILY Qty = 30 Refills = 1 Comments: Last Taken: 12/04/16 Time: 10AM Lorazepam (Ativan) 0.5 MG TABLET 0.5 Milligram ORAL SEE INSTRUCTIONS Qty = 6 No Refills Instructions: DATE DOSE 12/04-12/05 0.5MG TWICE A DAY 12/06-12/07 0.5MG ONCE A DAY Comments: Last Taken: 12/04/16 Time: 10AM Folic Acid (Folic Acid) 1 MG TABLET 1 Milligram ORAL DAILY Qty = 30 No Refills Thiamine HCl (Vitamin B-1) 100 MG TABLET 100 Milligram ORAL DAILY Qty = 30 No Refills Multivitamin (One Daily Multivitamin) 1 EACH TABLET 1 Tablet ORAL DAILY Qty = 30 No Refills Copies To: MARYSOL NASSAR,VENKATESH Attending MD Review Statement Documenting Attending: JUDY ZAMARRIPA MD
== END 2016-12-04 14:58 | DRG 775 ==
LOC: ERH 19:28 → 2NA 11-29 19:26 → ERHI 11-29 19:26 → ENRESERV 11-29 22:58 → 2NA 11-30 03:11
PROVIDERS: Emergency Medicine; ADMIT Internal Medicine
DX: F10.239 Alcohol dependence with withdrawal, unspecified (principal); F10.229 Alcohol dependence with intoxication, unspecified; Y90.8 Blood alcohol level of 240 mg/100 ml or more; E87.6 Hypokalemia; Z86.73 Personal history of transient ischemic attack (TIA), and cerebral infarction without residual deficits; I10 Essential (primary) hypertension; E11.9 Type 2 diabetes mellitus without complications; E78.5 Hyperlipidemia, unspecified; K21.9 Gastro-esophageal reflux disease without esophagitis; F17.200 Nicotine dependence, unspecified, uncomplicated; F41.9 Anxiety disorder, unspecified
CPT/HCPCS: 2NAP; 2NASP; ERO; 36415; 80307; 81001; 82436; 93005; 93010; 96360; G0480; J1650; J3490

== ENCOUNTER 2016-12-31 23:56 | Inpatient (IN) | payer OTHER ==
[~2016-12-31] VITALS: Ht 177.8 cm; Wt 79.4 kg
[~2016-12-31 23:56] MED LIST changes: +AMLODIPINE BESYL5 M1 PO; +ATIVAN0.5 M1 PO; +LISINOPRIL5 M1 PO; +OMEPRAZOLE20 M2 PO
[2017-01-01] VITALS (12 sets, daily range): BP systolic 126–180; BP diastolic 90–115
--- NOTE | 2017-01-01 01:07 | NUR ---
TRIAGE: PATIENT TO ER FROM HOME REQUESTING ETOH DETOX, DENIES DRUG USE, REPORTS DRINKING APPROX 1L DAILY X 1 MONTH, LAST DRINK APPROX 5 HOURS AGO THOUGH REPORTING 1L INTAKE IN LAST 24 HOURS. PATIENT CALM AND COOPERATIVE, TEARFUL, STTING "MY IN MAY AND I HAVE BEEN USING THIS TO COPE AND I JUST CAN'T ANYMORE." PATENT REPORTS HX DETOX W/ HX DETOX SEIZURES. DENIES SI/HI. SECURITY PAGED FOR WANDING.
--- NOTE | 2017-01-01 01:09 | NUR ---
SEXURITY AT BEDSIDE FOR WANDING.
--- NOTE | 2017-01-01 01:12 | NUR ---
PATIENT CHANGING INTO SCRUBS.
--- NOTE | 2017-01-01 01:21 | NUR ---
BLOODWORK OBTAINED AND SENT TO LAB BY YULIA SPENCE (LAV, SST, BLUE).
--- NOTE | 2017-01-01 01:25 | NUR ---
LABS DRAWN AND SENT BY THIS MST. BLUE,SST,LAV.
[2017-01-01 01:38] LABS: ABSOLUTE BASOPHIL COUNT 0 /CUMM (0.0-0.2); ABSOLUTE EOSINOPHIL COUNT 0 /CUMM (0.0-0.7); ABSOLUTE GRANULOCYTE CT 2.9 /CUMM (1.4-6.5); ABSOLUTE MONOCYTE COUNT 0.4 /CUMM (0.10-0.60); BASOPHIL % 0.3 % (0.0-2.0); EOSINOPHIL % 0.6 % (0-5); GRANULOCYTE % 55.1 % (42.2-75.2); HEMATOCRIT 50.7 % (42-52); MEAN CORPUSCULAR HGB CONC 34.5 G/DL (33.0-37.0); MEAN CORPUSCULAR VOLUME 92.9 FL (80.0-94.0); MEAN PLATELET VOLUME 5.9 FL (7.4-10.4); PLATELET COUNT 128 /CUMM (130-400); RBC DISTRIBUTION WIDTH 13.6 % (11.5-14.5); RED BLOOD CELL CT 5.45 /CUMM (4.70-6.10); WHITE BLOOD CELL COUNT 5.4 /CUMM (4.8-10.8)
--- NOTE | 2017-01-01 01:42 | ED PSYCHIATRIC COMPLAINT ---
History of Present Illness General Chief Complaint: ETOH/Drug Related Complaint Stated Complaint: PT REQUESTING ETOH DETOX HX SEIZURE -SI/-HI Source: patient, old records Exam Limitations: clinical condition Vital Signs & Intake/Output Vital Signs & Intake/Output Vital Signs Date Time Temp Pulse Resp B/P B/P Pulse O2 O2 Flow FiO2 Mean Ox Delivery Rate 01/01 1417 98.9 105 18 178/105 100 Room Air / 1411 105 18 170/99 07/05 1338 98.0 89 15 168/105 100 Room Air 07/05 1250 98.0 85 18 168/108 07/05 1230 102 18 160/94 100 Room Air 07/05 1015 100 155/100 07/05 0954 98.3 100 15 155/98 100 Room Air 07/05 0849 99.3 135 18 135/98 07/05 0845 98.6 115 15 155/99 100 Room Air 07/05 0651 98.2 100 18 146/96 07/05 0651 98.2 100 18 146/96 94 Room Air 07/05 0522 100 18 126/93 07/05 0515 100 18 126/93 94 Room Air 07/05 0343 98.0 92 18 137/97 07/05 0343 98.0 92 18 137/97 98 Room Air 07/05 0107 100 Room Air 07/05 0100 98.1 106 20 167/115 07/05 0100 98.1 106 20 167/115 94 Room Air Allergies Coded Allergies: No Known Allergies (01/01/17) Reconcile Medications Amlodipine Besylate 5 MG TABLET 5 MG PO DAILY HTN Folic Acid 1 MG TABLET 1 MG PO DAILY SUPPLEMENT Lisinopril 5 MG TABLET 5 MG PO DAILY BLOOD PRESSURE Lorazepam (Ativan) 0.5 MG TABLET 0.5 MG PO SEE ADMIN CRITERIA ALCOHOL WITHDRAWAL DATE DOSE 12/04-12/05 0.5MG TWICE A DAY 12/06-12/07 0.5MG ONCE A DAY Multivitamin (One Daily Multivitamin) 1 EACH TABLET 1 TAB PO DAILY SUPPLEMENT Omeprazole 20 MG CAPSULE.DR 40 MG PO DAILY AC GI Thiamine HCl (Vitamin B-1) 100 MG TABLET 100 MG PO DAILY SUPPLEMENT Triage Note: TRIAGE: PATIENT TO ER FROM HOME REQUESTING ETOH DETOX, DENIES DRUG USE, REPORTS DRINKING APPROX 1L DAILY X 1 MONTH, LAST DRINK APPROX 5 HOURS AGO THOUGH REPORTING 1L INTAKE IN LAST 24 HOURS. PATIENT CALM AND COOPERATIVE, TEARFUL, STTING "MY IN MAY AND I HAVE BEEN USING THIS TO COPE AND I JUST CAN'T ANYMORE." PATENT REPORTS HX DETOX W/ HX DETOX SEIZURES. DENIES SI/HI. SECURITY PAGED FOR WANDING. Triage Nurses Notes Reviewed? yes Onset: Abrupt Duration: worse persistent since (FEW DAYS), 6 MONTHS Timing: recent history Severity: moderate, severe Associated Symptoms: anxiety, DEPRESSED HPI: 46 year old male with history of alcohol withdrawal seizures presents requesting detox. last detox admission 1 month ago. States he is drinking 1 L per day of rum. Depressed over the of his in May from a drug overdose. Reports history of alcohol detox seizures. No SI/HI. Denies any drug use. (GARRISON ZALDIVAR MD) Past History Travel History Traveled to [place] past 21 day No Medical History Any Pertinent Medical History? see below for history Neurological: seizure, TIA, STROKE AVASCULAR NECROSIS EENT: NONE Cardiovascular: hypertension, hyperlipidemia, TACHYCARDIA Respiratory: bronchitis Gastrointestinal: GERD Hepatic: FATTY LIVER Renal: NONE Musculoskeletal: L RIB FX Psychiatric: alcohol dependence, depression Endocrine: diabetes Blood Disorders: NONE Cancer(s): NONE LUBRICATING SPECIALIST/Reproductive: NONE History of MRSA: No History of VRE: No History of CDIFF: No Surgical History Surgical History: L HIP Skull surgery Psychosocial History Who do you live with Patient/Self Services at Home None What is your primary language Sierra Leonean Tobacco Use: Refused to answer ETOH Use: alcoholic Family History Family History, If Any: MOTHER (NEUROBLASTOMAALCOHOL ABUSEDM). SISTER (DM). SISTER FATHER (RETROPERITONEAL FIBROSIS). Hx Contributory? No (GARRISON ZALDIVAR MD) Review of Systems Review of Systems Constitutional: Denies: chills, fever. EENTM: Reports: no symptoms. Respiratory: Reports: no symptoms. Cardiovascular: Reports: no symptoms. GI: Reports: no symptoms. Genitourinary: Reports: no symptoms. Musculoskeletal: Reports: no symptoms. Skin: Reports: no symptoms. Neurological/Psychological: Reports: anxiety, dementia, emotional problems. Hematologic/Endocrine: Reports: no symptoms. Immunologic/Allergic: Reports: no symptoms. All Other Systems: Reviewed and Negative (GARRISON ZALDIVAR MD) Physical Exam Physical Exam General Appearance: well developed/nourished, mild distress Head: atraumatic Eyes: Bilateral: PERRL, EOMI. Ears, Nose, Throat: normal pharynx, normal ENT inspection, hearing grossly normal Neck: normal inspection, supple Respiratory: normal breath sounds Cardiovascular: regular rate/rhythm Gastrointestinal: soft, non-tender Extremities: normal range of motion Neurological/Psychiatric: no motor/sensory deficits, awake, calm Appearance/Memory/Insight: disheveled, impaired insight Behavoir/Eye Contact/Speech: cooperative, decreased rate of speech Thoughts/Hallucinations: no apparent hallucination Skin: intact, normal color, warm/dry SAD PERSONS Done? patient not suicidal (KAYLEY NASSAR,GARRISON) Progress Differential Diagnosis: ALCOHOL INTOXICATION, ALCOHOL ABUSE, DEPRESSION Plan of Care: Orders Procedure Date/time Status Regular Diet 01/01 L Active ED CRISIS PSYCH CONSULT 01/01 0320 Active CASE MANAGEMENT CONSULT 01/01 0154 Active CIWA 01/01 0142 Active URINE DRUG SCREEN FOR ER ONLY 01/01 109 Complete ETHANOL 01/01 109 Complete COMPREHENSIVE METABOLIC PANEL 01/01 109 Complete CBC WITHOUT DIFFERENTIAL 01/01 109 Complete Current Medications Sig/Beny Start time Last Medication Dose Stop Time Status Admin Lorazepam 2 MG ONE ONE 01/01 1430 UNVr (Ativan) 01/01 1431 Laboratory Tests 01/01/17 1214: Urine Opiates Screen < 100.00, Methadone Screen < 40, Barbiturate Screen < 60, Ur Phencyclidine Scrn < 6.00, Amphetamines Screen < 100, U Benzodiazepines Scrn < 85, Urine Cocaine Screen < 50, Urine Cannabis Screen 12.30 01/01/17 0122: Anion Gap 16, Estimated GFR > 60, BUN/Creatinine Ratio 12.5, Glucose 105 H, Calcium 8.9, Total Bilirubin 0.9, AST 87 H, ALT 60, Alkaline Phosphatase 76, Total Protein 8.1, Albumin 5.0, Globulin 3.1, Albumin/Globulin Ratio 1.6, CBC w Diff NO MAN DIFF REQ, RBC 5.45, MCV 92.9, MCH 32.0 H, RDW 13.6, MPV 5.9 L, Gran % 55.1, Lymphocytes % 36.8, Monocytes % 7.2, Eosinophils % 0.6, Basophils % 0.3, Absolute Granulocytes 2.9, Absolute Lymphocytes 2.0, Absolute Monocytes 0.4 , Absolute Eosinophils 0, Absolute Basophils 0, PUBS MCHC 34.5, Serum Alcohol 410.0 Hand-Off Endorsed To: HARRY CORTEZ MD Endorsed Time: 0700 Pending: consult (CASE MANAGEMENT), other (SOBRIETY) (GARRISON ZALDIVAR MD) Comments: Patient CIWA score has been escalating. Patient receiving Ativan. Patient received state approval for 6 days. Patient really should go to rehabilitation upon discharge. (HARRY CORTEZ MD) Departure Departure Disposition: STILL A PATIENT Condition: Stable Clinical Impression Primary Impression: Alcohol abuse Referrals: VENKATESH GREGG MD (PCP/Family) Departure Forms: Customer Survey General Discharge Information (GARRISON ZALDIVAR MD) Admission Note Spoke With: AGNIESZKA LOJA MD Documentation of Exam: Documentation of any treatments & extenuating circumstances including Concerns Regarding Discharge (functional status, medication knowledge or non-compliance, living conditions, etc.) that warrant an admission rather than observation: [ Patient to be admitted for alcohol withdrawal, ATIVAN PER CIWA.] Alcohol Withdrawl Admission ED Alcohol Detox Admission d/t: DTs/Seizure w/i last year (DIEGO NASSAR,HARRY Martinez)
--- NOTE | 2017-01-01 02:04 | NUR ---
PATIENT NOTED W/ ONE BLACK WOODEN PIPE W/ BURNT SUBSTANCE, ONE BAG W/ MARIJUANA SMELLING SUBSTANCE, 5 NIPS OF CAPTAIN JUANITA AND 1 BOTTLE OF TWO ROADS BEER. ALL ITEMS DISCARDED BY SECURITY AND THIS RN (CHARGE). MD AWARE. PATIENT'S POCKETKNIFE LOCKED UP BY SECURITY. 1 BAG OF MEDS LOCKED IN VALUABLES BAG AND BROUGHT TO PHARMACY. 1 VALUABLES BAG LOCKED IN ER SAFE. 2 BELONGINGS BAGS AND 1 BLACK BACKPACK LOCKED IN CLOSET.
--- NOTE | 2017-01-01 03:03 | NUR ---
PATIENT ASLEEP AT THIS TIME W/ REGULAR RESPIRATIONS NOTED.
--- NOTE | 2017-01-01 03:04 | NUR ---
UNABLE TO CONFIRM PATIENT HOME MED LIST D/T CURRENT INTOXICATION.
--- NOTE | 2017-01-01 03:47 | NUR ---
PATIENT AWOKE FROM SLEEP, REQUESTING WATER. WATER PROVIDED, TOLERATING PO INTAKE WELL. CIWA COMPLETED- 0. PATIENT STATES "CAN I GET SOMETHING FOR THE SHAKES?" NO TREMORS NOTED. MD ZALDIVAR AWARE OF PATIENT REQUEST, PATIENT ETOH VIA BLOODWORK 410. NO ORDERS TO BE PLACED AT THIS TIME PER MD.
--- NOTE | 2017-01-01 04:08 | NUR ---
DR ZALDIVAR AT BEDSIDE.
--- NOTE | 2017-01-01 04:44 | NUR ---
PT RESTING COMFORTABLY ON STRETCHER. NO DISTRESS NOTED. NO TREMORS NOTED. WILL CONTINUE TO MONITOR.
--- NOTE | 2017-01-01 05:16 | NUR ---
PT STATES "CAN YOU GIVE ME SOMETHING FOR THE SHAKES." NO TREMORS NOTED. PT THEN STATES "CAN YOU GIVE ME SOMETHING FOR NAUSEA." PT MEDICATED PER EMAR WITH ZOFRAN. PT IMMEDIATELY ASKS FOR SOME WATER "SO I CAN HAVE SOMETHING IN MY STOMACH TO THROW UP." PT INFORMED THAT WE SHOULD HOLD OFF ON LIQUIDS AT THIS TIME UNTIL THE ZOFRAN KICKS IN AND NAUSEA SUBSIDES.
--- NOTE | 2017-01-01 05:23 | NUR ---
FINGERSTICK GLUCOSE LEVEL READING 86
--- NOTE | 2017-01-01 05:24 | NUR ---
PT NOTED TO BE DIAPHORETIC AND STATES "I THINK MY SUGAR DROPPED LOW." FINGERSTICK DONE BY MST MALENA, READING OF 86. PT EXPERIENCING N/V. CIWA 10 AT THIS TIME. PT MEDICATED PER EMAR WITH ATIVAN. WILL CONTINUE TO MONITOR.
--- NOTE | 2017-01-01 06:04 | NUR ---
PT AWARE THAT URINE SPECIMEN IS REQUESTED. PT STATES "OH I'M TOO DEHYDRATED RIGHT NOW."
--- NOTE | 2017-01-01 06:42 | NUR ---
PT HAS A TOTAL OF 2 VALUABLE BAGS IN SAFE
--- NOTE | 2017-01-01 07:17 | NUR ---
REPORT GIVEN TO LARRY TOWNSEND.
--- NOTE | 2017-01-01 07:29 | NUR ---
ASSUMED CARE OF PT, PT SLEEPING QUIETLY AT THIS TIME, DENIES ANY ADDTL NEEDS OR CONCERNS.
--- NOTE | 2017-01-01 08:33 | NUR ---
PT CONTINUES TO SLEEP QUIETLY, NO S/S OF WITHDRAWAL NOTED. WILL CTM.
--- NOTE | 2017-01-01 08:56 | NUR ---
PT MEDICATED FOR CIWA OF 10, MEDICATED WITH 2MG ATIVAN IVP, REQUESTING PITCHER OF ICE WATER. WILL CTM.
--- NOTE | 2017-01-01 09:03 | NUR ---
PT ENCOURAGED TO GIVE URINE SAMPLE, PT STATING HE WILL CONTINUE TO TRY
--- NOTE | 2017-01-01 09:30 | NUR ---
PT REPORTING FEELING BETTER AFTER ATIVAN, HR IMPROVED, PT CONTINUES TO BE HYPERTENSIVE.
--- NOTE | 2017-01-01 10:15 | NUR ---
PT CONTINUES TO HAVE FINE TREMOR AT FINGER TIPS, DENIES ANY OTHER S/S OF WITHDRAWAL, MEDICATED WITH NORMAL BP MEDS AND 2MG ATIVAN PO
--- NOTE | 2017-01-01 11:47 | NUR ---
PT ENCOURAGED TO GIVE URINE SAMPLE, PT IS AWARE THAT HE HAS BEEN IN DEPARTMENT FOR APPROX 12 HOURS AND HE SHOULD NEED TO VOID.
--- NOTE | 2017-01-01 12:49 | NUR ---
PT ATE APPROX 25% OF LUNCH TRAY, MINIMAL FINE TREMORS NOTED TO FINGER TIPS, PT REPORTING FEELING MUCH BETTER
--- NOTE | 2017-01-01 12:53 | NUR ---
PT REMAINS HYPERTENSIVE DESPITE NORMAL HOME DOSE OF AMPLODIPINE, PT REPORTING HE IS NON COMPLIANT WITH ALL MEDS AT HOME STATING "I DONT REMEMBER THE LAST TIME I TOOK SOMETHING FOR MY BP"
--- NOTE | 2017-01-01 13:16 | NUR ---
01/01 case mgmt- Spoke with CT P which is bringing case for consult and will call us back when decision is made regarding auth. Case mgmt will continue to follow.
--- NOTE | 2017-01-01 14:18 | NUR ---
PT REPORTING FEELING MORE TREMULOUS AND ANXIOUS, CIWA REPEATED AND 11, MEDICATED WITH 2MG ATIVAN IVP. TREMOR NOTED AT FINGERTIPS AND PT REPORTING SLIGHT NAUSEA AND ANXIETY.
--- NOTE | 2017-01-01 14:18 | NUR ---
01/01 CASE MGMT- CALL FROM [facility] STATES PT AUTH APPROVED FOR 6 UNITS FROM 01/01/17 TO 01/06/17 AUTH# [id number]. ADMITTING AND DR CORTEZ MADE AWARE.
--- NOTE | 2017-01-01 14:41 | NUR ---
PT NOTED TO BE SLEEPING QUIETLY, WILL CONTINUE TO MONITOR CIWA
--- NOTE | 2017-01-01 14:44 | History & Physical ---
JAYLEN REEDER 01/01/17 1444: General Information and HPI MD Statement: I have seen and personally examined PATRICIO MONTESINOS and documented this H&P. The patient is a 46 year old M who presented with a patient stated chief complaint of [Requests help with detox]. Source of Information: patient, old records Exam Limitations: no limitations History of Present Illness: Mr Montesinos is a 46 y/o gentleman with a PMH EtOH dependence, withdrawal seizure, hepatic streatosis, 2 indistinct low-density lesions in the right lobe of the liver visualized on CT abdomen pelvis in 2013, destructive process of head of left femur ?? Avascular necrosis, tobacco dependence (8 cigarettes per day) who presents today requesting help with alcohol detox. The patient has had multiple attempts at alcohol detox since his in May 2016, the most recent admission in November 2016. He reports difficulty abstaining from alcohol especially at the end of the day with difficulty falling asleep. He endorses drinking approximately 1 liter of [place] rum on a nightly basis, occasional marijuana use, daily tobacco use at 8 cigarettes/day but denies any other illicit drug use. He has been unsuccessful with cutback on multiple previous attempts, feels frustrated/guilty with this challenge but denies having to use alcohol to start his day. 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 ROS: He does endorse an intermittent productive cough with cai sputum over the past few weeks, was diagnosed with a sinus infection last month, prescribed augmentin and prednisone that he was noncompliant with. Today he also endorses nausea, vomiting, unsteady gait, generalized body tremors. He denies any visual/ auditory hallucination, tactile sensation, recent tongue biting/loss of bowel/ bladder control, LOC, choking on food/liquids, sore throats, fevers, chills, chest pain, shortness of breath, abdominal pain, changes in urinary/bladder habits. Allergies/Medications Allergies: Coded Allergies: No Known Allergies (01/01/17) Home Med list Amlodipine Besylate 5 MG TABLET 5 MG PO DAILY HTN Folic Acid 1 MG TABLET 1 MG PO DAILY SUPPLEMENT Lisinopril 5 MG TABLET 5 MG PO DAILY BLOOD PRESSURE Multivitamin (One Daily Multivitamin) 1 EACH TABLET 1 TAB PO DAILY SUPPLEMENT Omeprazole 20 MG CAPSULE.DR 40 MG PO DAILY AC GI Thiamine HCl (Vitamin B-1) 100 MG TABLET 100 MG PO DAILY SUPPLEMENT Past History Travel History Traveled to [place] past 21 day No Medical History Neurological: seizure, TIA, STROKE AVASCULAR NECROSIS EENT: NONE Cardiovascular: hypertension, hyperlipidemia, TACHYCARDIA Respiratory: bronchitis Gastrointestinal: GERD Hepatic: FATTY LIVER Renal: NONE Musculoskeletal: L RIB FX Psychiatric: alcohol dependence, depression Endocrine: diabetes Blood Disorders: NONE Cancer(s): NONE CONSULTING PROPERTY MANAGER/Reproductive: NONE History of MRSA: No History of VRE: No History of CDIFF: No Surgical History Surgical History: L HIP Skull surgery Past Family/Social History Family History Relations & Conditions if any MOTHER (NEUROBLASTOMAALCOHOL ABUSEDM). SISTER (DM). SISTER FATHER (RETROPERITONEAL FIBROSIS). Psychosocial History Who Do You Live With? self Services at Home: None Smoking Status: Current Everyday Smoker ETOH Use: alcoholic Illicit Drug Use: marijuana Functional Ability ADLs Independent: dressing, eating, toileting, bathing. Ambulation: independent IADLs Independent: shopping, housework, finances, food prep, telephone, transportation , medication admin. Review of Systems Review of Systems Constitutional: Reports: see HPI. EENTM: Reports: see HPI. Cardiovascular: Reports: no symptoms. Respiratory: Reports: see HPI. GI: Reports: see HPI. Genitourinary: Reports: no symptoms. Musculoskeletal: Reports: see HPI. Skin: Reports: no symptoms. Neurological/Psychological: Reports: see HPI. Exam & Diagnostic Data Last 24 Hrs of Vital Signs/I&O Vital Signs Date Time Temp Pulse Resp B/P B/P Pulse O2 O2 Flow FiO2 Mean Ox Delivery Rate 01/01 1850 98.3 118 18 154/96 01/01 1850 98.3 118 18 154/96 95 Room Air Room Air 01/01 1756 98.6 122 20 176/90 01/01 1756 98.6 122 20 176/90 94 Room Air / 1700 98.7 115 20 158/110 / 1700 98.7 115 20 158/110 / 1653 115 18 158/110 98 / 1526 98.5 122 18 180/100 93 Room Air / 1525 98.5 122 20 180/100 07/ 1417 98.9 105 18 178/105 100 Room Air 01/01 1411 105 18 170/99 07/05 1338 98.0 89 15 168/105 100 Room Air 07/05 1250 98.0 85 18 168/108 07/05 1230 102 18 160/94 100 Room Air 07/05 1015 100 155/100 07/05 0954 98.3 100 15 155/98 100 Room Air 07/05 0849 99.3 135 18 135/98 07/05 0845 98.6 115 15 155/99 100 Room Air 07/05 0651 98.2 100 18 146/96 07/05 0651 98.2 100 18 146/96 94 Room Air 07/05 0522 100 18 126/93 07/05 0515 100 18 126/93 94 Room Air 07/05 0343 98.0 92 18 137/97 07/05 0343 98.0 92 18 137/97 98 Room Air 07/05 0107 100 Room Air 07/05 0100 98.1 106 20 167/115 07/05 0100 98.1 106 20 167/115 94 Room Air Intake & Output 07/ 1600 07/05 0800 07/05 0000 Intake Total Output Total Balance Weight Reported by Patient Measurement Method Physical Exam General Appearance patient is laying in bed diaphoretic, intermittent generalized body tremor appreciated, easily arousable and cooperative. No acute distress Skin warm to touch, diaphoretic Skin Temp/Moisture Exam: Hot/Diaphoretic Sepsis Skin Exam (color): Flushed HEENT Mucous Membr. moist/pink Cardiovascular Regular Rate, Normal S1, Normal S2, tachycardia Lungs Normal Air Movement, diminished breath sounds in the basilar regions bilaterally Abdomen Normal Bowel Sounds, Soft, mild tenderness to palpation of the epigastric region Extremities No Edema, Normal Pulses Vascular Pulses Symmetrical Last 24 Hrs of Labs/Sj: Laboratory Tests 01/01/17 1214: Urine Opiates Screen < 100.00, Methadone Screen < 40, Barbiturate Screen < 60, Ur Phencyclidine Scrn < 6.00, Amphetamines Screen < 100, U Benzodiazepines Scrn < 85, Urine Cocaine Screen < 50, Urine Cannabis Screen 12.30 01/01/17 0122: Anion Gap 16, Estimated GFR > 60, BUN/Creatinine Ratio 12.5, Glucose 105 H, Calcium 8.9, Phosphorus 4.6 H, Magnesium 1.9, Total Bilirubin 0.9, AST 87 H, ALT 60, Alkaline Phosphatase 76, Total Protein 8.1, Albumin 5.0, Globulin 3.1, Albumin/Globulin Ratio 1.6, Cortisol PM Sample 17.9 H, CBC w Diff NO MAN DIFF REQ, RBC 5.45, MCV 92.9, MCH 32.0 H, RDW 13.6, MPV 5.9 L, Gran % 55.1, Lymphocytes % 36.8, Monocytes % 7.2, Eosinophils % 0.6, Basophils % 0.3, Absolute Granulocytes 2.9, Absolute Lymphocytes 2.0, Absolute Monocytes 0.4, Absolute Eosinophils 0, Absolute Basophils 0, PUBS MCHC 34.5, Serum Alcohol 410.0 Microbiology 01/01 1601 LOWER RESP: Respiratory Culture - ORD 01/01 160 LOWER RESP: Gram Stain - ORD Diagnostic Data CXR Results No convincing evidence for an acute process. No obvious failure or infiltrate. No effusion. Low lung volumes. Limited from patient body habitus. Assessment/Plan Assessment: 46 y/o gentleman with a PMH EtOH dependence, withdrawal seizure, hepatic streatosis, 2 indistinct low-density lesions in the right lobe of the liver visualized on CT abdomen pelvis in 2013, 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 Patient has had multiple previous admissions for alcohol detox most recently November 2016, drinks 1 liter of [place] daily, occasional marijuana use, daily tobacco use at 8 cigarettes per day. ROS: Reports intermittent productive cough with green sputum over the past 2 weeks, recent diagnosis of sinus infection for which he was prescribed Augmentin and prednisone but was noncompliant with. Today he endorses nausea, vomiting, unsteady gait, generalized body tremors. He denies visual/auditory hallucinations, tactile sensation, recent tongue biting/loss of bladder or bowel control, LOC, choking on food/liquids, fever, chills, chest pain, shortness of breath. VS on admission: BP 167/115, HR 106, RR 20, SPO2 94% on RA, T 98.1 Pertinent labs on admission: WBC 5.4, H&H 17.5/50.7, platelets 128K, sodium 146, potassium 4.4, bicarbonate 31, BUN/CR 10/0.8, glucose 105. AST/ALT: 87/60 Total bilirubin: 0.9 Urine tox: EtOH 410 Problem list: 1. Alcohol dependence with detox 2. Hypertensive urgency 3. Thrombocytopenia 4. Elevated bicarbonate 5. Hepatic steatosis 6. Indistinct low-density lesions in R lobe of the liver visualized on CT abd/ pelvis in 2013 7. History of hypertriglyceridemia, hypercholesterolemia (2015) Plan: * Admit the patient to general medicine for alcohol detox. Ativan per serial protocol with 2 mg Q6 PO, 1 mg IV Q1PRN. Will start the patient on 1 banana bag , continue with thiamine, folic acid and multivitamin supplementation tomorrow. Follow-up INR in the a.m. * Antiemetics with Zofran. Follow-up EKG for QT * We'll start the patient on lactated Ringer's maintenance at 100 mL/hr. Once patient is tolerating diet, will discontinue IV fluids * Hypertensive urgency: Likely secondary to withdrawal/noncompliance with his medications. We'll give the patient amlodipine 10 mg 1, restart him on his home medication of amlodipine 5 mg and lisinopril 5 mg daily * Thrombocytopenia: Likely secondary to alcohol effects on bone marrow suppression. ALPs for DVT prophylaxis, recheck platelet levels over the next few days prior to pharmacological anticoagulation * Elevated bicarbonate: Likely secondary to respiratory suppression in the setting of chronic alcohol use with compensatory renal compensation. Chest x-ray unremarkable for pneumonia. Incentive spirometry, aspiration precaution while on CIWA, close monitoring for hypoxia that may require airway protection * Hepatic steatosis: Alcohol abstinence/weight loss recommendations at discharge * Hypertriglyceridemia/hypercholesterolemia: We'll repeat lipid panel in the a.m , Calculate ASCVD score. Recommend outpatient follow-up with PCP once normalization of LFTs and initiate statin bvased on cardiovasular risk * Indistinct low-density lesion in right lobe of liver: Previously visualized on CT. Will discuss with radiology in the a.m. on utility of repeat CT vs MRI to better delineate * Heart healthy diet * ALPs * Full code AM TEAM: * EKG for QT * Psych/social consult once more alert for assistance with IOP recommedations * Speak with radiology about findings on liver on CT from 2013 As Ranked By This Provider Problem List: 1. Alcohol dependency 2. Alcohol abuse 3. Alcohol withdrawal syndrome 4. Hypertensive urgency 5. Thrombocytopenia 6. Hepatic steatosis 7. Lesion of right lobe of liver 8. Nicotine dependence Core Measures/Miscellaneous Acute Coronary Syndrome ACS Diagnosis: No Cerebrovascular Accident CVA/TIA Diagnosis: No Congestive Heart Failure CHF Diagnosis: No VTE (View Protocol) VTE Risk Factors: Age > 40 No Mech VTE prophylaxis d/t: No contraindications No VTE Pharm Prophylaxis d/t: Platelets below ref range VTE Diagnosis: No VTE Type: NONE VTE Confirmed by (Test): NONE Sepsis (View Protocol) Severe Sepsis Present: No Septic Shock Septic Shock Present: No Miscellaneous Documentation Attending Case Discussed With: JUDY ZAMARRIPA MD Primary Care Physician: VENKATESH GREGG MD Patient sees these Specialists NA Level of Patient Care: General Medicine Resident Review Statement Resident Statement: examined this patient, discussed with web marketing intern, agreed with web marketing intern, reviewed EMR data (avail), discussed with nursing, reviewed images JUDY ZAMARRIPA MD 01/02/17 0914: Attending MD Review Statement Attending Statement Attending MD Statement: examined this patient, discuss w/resident/PA/CRIMINAL PROFILER, agreed w/resident/PA/CRIMINAL PROFILER, reviewed EMR data (avail) Attending Assessment/Plan: 46M PMH withdrawal seizure presenting with signs and symptoms of alcohol withdrawal. Agitated, diaphoretic, tachycardic, has a history of seizure from EtOH, drinks 1L rum nightly. Exam, labs unremarkable. Plan - Continue on general medicine - Ativan standing and PRN - Vitamin supplementation - Continue home medications - DVT PPx
--- NOTE | 2017-01-01 15:19 | NUR ---
RECEIVED REPORT ON PT AND NOTED RESTING ON STRETCHER WILL CIWA SOON
--- NOTE | 2017-01-01 15:30 | NUR ---
HOUSE STAFF PAIGED TO OBTAIN SLIDDING SCALE FOR ATIVAN AND MEDICATE APPROPRIATELY. SOUP ALSO CALLED IN FOR PT SINCE HE COULD NOT TOLERATE MEAL
--- NOTE | 2017-01-01 16:09 | NUR ---
HOUSE STAFF JAYLEN AT BEDSIDE WITH PT TO KACI
--- NOTE | 2017-01-01 16:19 | NUR ---
PT MEDICATED ORDERED FOR CIWA AND NAUSEA
--- NOTE | 2017-01-01 16:24 | NUR ---
PT HAS IV LR INFUSING AND AWAITING ELVIS BAG FROM LAB. PT WILL BE MEDICATED WITH NORVASC WHEN ABLE TO TOLERATE DRINKING
--- NOTE | 2017-01-01 16:28 | RADIOLOGY REPORT ---
EXAMINATION: XR PORTABLE CHEST CLINICAL INFORMATION: Persistent cough COMPARISON: 11/27/2016. TECHNIQUE: Portable frontal view of the chest was obtained. FINDINGS: No convincing evidence for an acute process. No obvious failure or infiltrate. No effusion. Low lung volumes. Limited from patient body habitus. IMPRESSION: No convincing evidence for an acute process.
--- NOTE | 2017-01-01 16:59 | NUR ---
PT MEDICATED ORDERED
--- NOTE | 2017-01-01 17:01 | NUR ---
PT MEDICATED ORDERED
--- NOTE | 2017-01-01 17:10 | NUR ---
PHARMACY CALLED AND THEY ARE STILL WORKING ON ELVIS BAG
--- NOTE | 2017-01-01 17:37 | NUR ---
PT RECEIVED ELVIS BAG AND INFUSING AT PRESENT
--- NOTE | 2017-01-01 18:00 | NUR ---
REPORT GIVEN TO NURSE LOVE AND PT MEDICATED ORDERED
--- NOTE | 2017-01-01 18:09 | NUR ---
TWO VALUABLES SENT WITH PT
--- NOTE | 2017-01-01 19:55 | NUR ---
NURSING NOTE: PT ARRIVED TO FLOOR AT 1850 VIA STRETCHER. PT A&O, VS CHARTED. PT ORIENTED TO ROOM AND CALL BUSTOS. BED ALARM IN PLACED. PT HAS 2 PT BELONGING BAGS AND A BACKPACK IN CABINET UNDER TV AND 2 BAGS LOCKED IN SAFE. PT RESTING COMFORTABLY IN BED. WILL CONTIUE TO MONITOR.
[2017-01-02 02:40] VITALS: BP 142/86
[2017-01-02 02:42] VITALS: BP 142/86; BP 150/80
[2017-01-02 06:41] VITALS: BP 120/100
--- NOTE | 2017-01-02 07:57 | PN- Housestaff ---
LORRIE NASSAR,[facility] 01/02/17 0756: Subjective Follow-up For: ETOH Detox Hypertensive Urgency Nicotine Dependence Subjective: I have personally seen and examined the patient today. He was tremulous and very anxiuos at the time of examination. He wanted to go outside to have a cigarette as his nicotine patch did not seem to be working for him. He also wants to get tested for STDs. Review of Systems Constitutional: Reports: see HPI. Objective Last 24 Hrs of Vital Signs/I&O Vital Signs Date Time Temp Pulse Resp B/P B/P Pulse O2 O2 Flow FiO2 Mean Ox Delivery Rate 01/02 1448 98.0 96 20 136/94 95 Room Air 01/02 1112 105 150/110 01/02 0924 104 160/120 01/02 0923 104 160/120 01/02 0900 104 18 160/120 01/02 0641 98.3 95 20 120/100 95 Room Air / 0242 99.0 124 19 142/86 95 /06 0240 99.0 124 20 142/86 95 07/05 2226 99.0 123 20 150/104 92 07/05 1850 98.3 118 18 154/96 07 1850 98.3 118 18 154/96 95 Room Air Room Air 01/01 1756 98.6 122 20 176/90 07/05 1756 98.6 122 20 176/90 94 Room Air Intake & Output 01/02 1600 06 0800 / 0000 Intake Total 2700 1360 615 Output Total Balance 2700 1360 615 Intake, IV 800 1000 375 Intake, Oral 1900 360 240 Number 2 Bowel Movements Patient 175 lb Weight Physical Exam General Appearance: Alert, Oriented X3, Cooperative Other Physical Findings: Skin warm to touch, diaphoretic HEENT Mucous Membr. moist/pink Cardiovascular Regular Rate, Normal S1, Normal S2, tachycardia Lungs Normal Air Movement, diminished breath sounds in the basilar regions bilaterally Abdomen Normal Bowel Sounds, Soft, mild tenderness to palpation of the epigastric region Extremities No Edema, Normal Pulses Vascular Pulses Symmetrical Current Medications: Current Medications Sig/Beny Start time Last Medication Dose Route Stop Time Status Admin Acetaminophen 650 MG Q6P PRN 01/01 1600 AC PO Amlodipine Besylate 5 MG DAILY 01/02 1000 AC 01/02 PO 09 Amlodipine Besylate 5 MG ONCE ONE 01/02 930 DC 01/02 PO 07/06 0931 1112 Cyanocobalamin/ 1 BAG DAILY 01/01 1600 DC 01/01 Thiamine/Pyridoxine IV 01/01 2359 1736 Dextrose/Water 1,000 ML Folic Acid 1 MG DAILY 01/02 1000 AC 01/02 PO 0917 Lactated Ringer's 1,000 ML Q10H 01/01 1630 AC 01/02 IV 1555 Lisinopril 5 MG DAILY 01/02 1000 AC 01/02 PO 0923 Lorazepam 0 .STK-MED ONE 01/01 1805 DC PO Lorazepam 2 MG Q6 01/01 1800 AC 01/02 PO 1712 Lorazepam 0 .STK-MED ONE 01/01 1720 DC .ROUTE Lorazepam 0 Q1P PRN 01/01 1615 AC 01/02 IV 1445 Magnesium Oxide 400 MG BID 01/02 1000 AC 01/02 PO 01/02 2201 1112 Multivitamins 1 TAB DAILY 01/02 1000 AC 01/02 Therapeutic PO 0917 Nicotine 14 MG DAILY 01/02 1000 DC 01/02 TOP 0041 Nicotine 2 MG Q3P PRN 01/02 1000 AC 01/02 PO 1111 Nicotine 21 MG DAILY 01/02 1000 AC 01/02 TOP 1446 Omeprazole 40 MG DAILY AC 01/02 0700 AC 01/02 PO 0513 Ondansetron HCl 4 MG Q6P PRN 01/01 1615 AC 01/01 IV 1620 Oxycodone/ 1 TAB Q6P PRN 01/01 1600 AC Acetaminophen PO Oxycodone/ 2 TAB Q6P PRN 01/01 1600 AC Acetaminophen PO Potassium Chloride 40 MEQ ONCE ONE 01/02 1000 DC PO 01/02 1001 Potassium Chloride 40 MEQ ONCE ONE 01/02 0945 DC 01/02 PO 01/02 0946 1112 Thiamine HCl 0 .STK-MED ONE 01/01 1737 DC PO Thiamine HCl 100 MG DAILY 01/01 1557 AC 01/02 PO 0917 Last 24 Hrs of Lab/Sj Results Last 24 Hrs of Labs/Mics: Laboratory Tests 01/02/17 0640: Anion Gap 11, Estimated GFR > 60, BUN/Creatinine Ratio 11.3, Phosphorus 2.6, Magnesium 1.4 L, Total Bilirubin 1.9 H, Direct Bilirubin 0.6 H, AST 57, ALT 44, Alkaline Phosphatase 78, Total Protein 7.1, Albumin 4.4, CBC w Diff NO MAN DIFF REQ, RBC 4.93, MCV 93.2, MCH 32.2 H, RDW 13.5, MPV 6.5 L, Gran % 70.0, Lymphocytes % 20.1 L, Monocytes % 8.5, Eosinophils % 0.8, Basophils % 0.6, Absolute Granulocytes 4.3, Absolute Lymphocytes 1.2, Absolute Monocytes 0.5, Absolute Eosinophils 0, Absolute Basophils 0, PUBS MCHC 34.5, Hepatitis A IgM Ab NONREACTIVE, Hep Bs Antigen NONREACTIVE, Hep B Core IgM Ab Conf NONREACTIVE, Hepatitis C Antibody NONREACTIVE, HIV 1&2 Ab Western Blot NONREACTIVE Assessment/Plan Assessment: 46 y/o gentleman with a PMH EtOH dependence, withdrawal seizure, hepatic streatosis, 2 indistinct low-density lesions in the right lobe of the liver visualized on CT abdomen pelvis in 2013, 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 Patient has had multiple previous admissions for alcohol detox most recently November 2016, drinks 1 liter of [place] daily, occasional marijuana use, daily tobacco use at 8 cigarettes per day. ROS: Reports intermittent productive cough with green sputum over the past 2 weeks, recent diagnosis of sinus infection for which he was prescribed Augmentin and prednisone but was noncompliant with. Today he endorses nausea, vomiting, unsteady gait, generalized body tremors. He denies visual/auditory hallucinations, tactile sensation, recent tongue biting/loss of bladder or bowel control, LOC, choking on food/liquids, fever, chills, chest pain, shortness of breath. VS on admission: BP 167/115, HR 106, RR 20, SPO2 94% on RA, T 98.1 Pertinent labs on admission: WBC 5.4, H&H 17.5/50.7, platelets 128K, sodium 146, potassium 4.4, bicarbonate 31, BUN/CR 10/0.8, glucose 105. AST/ALT: 87/60 Total bilirubin: 0.9 Urine tox: EtOH 410 Problem list: 1. Alcohol dependence with detox 2. Hypertensive urgency 3. Thrombocytopenia 4. Elevated bicarbonate 5. Hepatic steatosis 6. Indistinct low-density lesions in R lobe of the liver visualized on CT abd/ pelvis in 2013 7. History of hypertriglyceridemia, hypercholesterolemia (2016) Plan: * Admitted the patient to general medicine for alcohol detox. Ativan per serial protocol with 2 mg Q6 PO, 1 mg IV Q1PRN. Start the patient on 1 banana bag, continue with thiamine, folic acid and multivitamin supplementation tomorrow. Follow-up INR . * Antiemetics with Zofran. Follow-up EKG for QT * Started the patient on lactated Ringer's maintenance at 100 mL/hr. Once patient is tolerating diet, will discontinue IV fluids * Hypertensive urgency: Likely secondary to withdrawal/noncompliance with his medications. patient was give amlodipine 10 mg 1, restarted him on his home medication of amlodipine 5 mg and lisinopril 5 mg daily * Thrombocytopenia: Likely secondary to alcohol effects on bone marrow suppression. ALPs for DVT prophylaxis, will recheck platelet levels over the next few days prior to pharmacological anticoagulation * Elevated bicarbonate: Likely secondary to respiratory suppression in the setting of chronic alcohol use with compensatory renal compensation. Chest x-ray unremarkable for pneumonia. Incentive spirometry, aspiration precaution while on CIWA, close monitoring for hypoxia that may require airway protection * Hepatic steatosis: Alcohol abstinence/weight loss recommendations at discharge * Hypertriglyceridemia/hypercholesterolemia: We'll repeat lipid panel, Calculate ASCVD score. Recommend outpatient follow-up with PCP once normalization of LFTs and initiate statin bvased on cardiovasular risk * Indistinct low-density lesion in right lobe of liver: Previously visualized on CT. Will discuss with radiology on utility of repeat CT vs MRI to better delineate * Heart healthy diet * ALPs * Full code Problem List: 1. Alcohol dependence with withdrawal 2. Nicotine dependence 3. Hypertensive urgency 4. Thrombocytopenia 5. Lesion of right lobe of liver 6. Hepatic steatosis Pain Ratin Pain Location: None Pain Goal: Pain 4 or less Pain Plan: Pain Pathway Tomorrow's Labs & Rationales: CBC(Thromboctopenia),BEP (Electrolyte derangment) JUDY ZAMARRIPA MD 01/02/17 1245: Attending MD Review Statement Attending Statement Attending MD Statement: examined this patient, discuss w/resident/PA/SWITCHBOARD OPERATOR ASSISTANT, agreed w/resident/PA/SWITCHBOARD OPERATOR ASSISTANT, reviewed EMR data (avail) Attending Assessment/Plan: 46M PMH withdrawal seizure presenting with signs and symptoms of alcohol withdrawal. Agitated, diaphoretic, tachycardic, has a history of seizure from EtOH, drinks 1L rum nightly. Exam, labs unremarkable. CIWA scores under control. Patient is very agitated as he is worried that his recently may have transmitted and STD to him. He also is craving a cigarette and had to be talked out of leaving AMA to get one. He is depressed and sad, denies SI/HI. Plan - Continue on general medicine - Increase Nicotine patch to 21mcg - Start Nicotine gum - Send HCV and HIV - Ativan standing and PRN - Vitamin supplementation - Continue home medications - DVT PPx
[2017-01-02 08:30] LABS: ABSOLUTE BASOPHIL COUNT 0 /CUMM (0.0-0.2); ABSOLUTE EOSINOPHIL COUNT 0 /CUMM (0.0-0.7); ABSOLUTE GRANULOCYTE CT 4.3 /CUMM (1.4-6.5); ABSOLUTE LYMPH COUNT 1.2 /CUMM (1.2-3.4); ABSOLUTE MONOCYTE COUNT 0.5 /CUMM (0.10-0.60); BASOPHIL % 0.6 % (0.0-2.0); EOSINOPHIL % 0.8 % (0-5); MEAN CORPUSCULAR HGB 32.2 PG (27.0-31.0); MEAN CORPUSCULAR HGB CONC 34.5 G/DL (33.0-37.0); MEAN CORPUSCULAR VOLUME 93.2 FL (80.0-94.0); MEAN PLATELET VOLUME 6.5 FL (7.4-10.4); RBC DISTRIBUTION WIDTH 13.5 % (11.5-14.5); RED BLOOD CELL CT 4.93 /CUMM (4.70-6.10); WHITE BLOOD CELL COUNT 6.2 /CUMM (4.8-10.8)
[2017-01-02 09:00] VITALS: BP 160/120
--- NOTE | 2017-01-02 09:17 | Admission Certification ---
Admission Certification Certification Statement - As attending physician, I certify that at the time of - admission, based on clinical presentation, severity of - symptoms, need for further diagnostic testing and - therapeutic interventions, and risk of adverse outcomes - without in-hospital treatment, in my clinical assessment, - this patient requires an acute hospital stay for a minimum - of two nights or longer. I have also considered psychsocial - factors such as support system, advanced age, financial - issues, cognitive issues, and failed out-patient treatments, - past re-admission history, safety of patient, and lack of - compliance as applicable. Specific rationale supporting this admission is: EtOH withdrawal with recent history of withdrawal seizure
[2017-01-02 10:04] LABS: PLATELET COUNT 85 /CUMM (130-400)
--- NOTE | 2017-01-02 14:04 | Cons- Psychiatry ---
Psychiatric Consult Date of Consult: 01/02/17 Reason for Consult: Mood issues, poor sleep, ETOH use d/o Case discussed with Dr. Ron Jacobs attending History of Present Illness: Identifying Info: 46-year-old male known to this service self presents to [facility] emergency Department on 01/01/17requesting alcohol detox. Of note BAL in ED was 410. Admitted to medicine for h/o Sz. CC: "My cheated on me... I lost my kids too." HPI: Patient reports that since June or July of this year he has been drinking approximately 1 L overwhelmed daily with some beer as well. He reports he had 1 year sober prior to that. His overdosed accidentally on heroin in May of last year. Additionally he has lost his job, his house has been foreclosed upon, and he lost custody of his children to his [id number]. On previous admissions for alcohol withdrawal and has repeatedly left AMA or refused assistance from psychiatric service. Today he reports he is ready to accept care because "I went ape shit." He is unable to clarifiy what he means but rather states "I can't eat," and reports a 20lb + weight loss since relapse. Today he is concerned because friend told him that his had been cheating on him and consuming a variety of IV drugs behind his back. He is concerned about the possibility of infection due to this. PMH: Please see the H&P for a complete listing Hepatic streatosis, 2 indistinct low-density lesions in the right lobe of the liver visualized on CT abdomen pelvis in 2013, destructive process of head of left femur ?? Avascular necrosis Past Psych History: -Outpatient Previously saw counselor approximately 25 years ago after of father. -Inpatient Denies Family Psych History: Not obtained Substance History Alcohol use disorder, severe Denies illicit substance use Current every day smoker reports 1 pack per day -Treatment Previous residential treatment "a few years ago." Patient is unsure of name of facility. Family Substance History: Late - PSA Social: . 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 Lives with a friend. Abuse/Trauma: Cites of his and her cheating on him. Current Home Psychotropic Medications: None Current Hospital Psychotropic Medications: Med Lorazepam IV Q1P PRN 01/01/17 1615 Lorazepam 2 MG PO Q6 01/01/17 1800 Allergies: Coded Allergies: No Known Allergies (01/01/17) Current Medications: Current Medications Sig/Beny Start time Last Medication Dose Route Stop Time Status Admin Acetaminophen 650 MG Q6P PRN / 1600 AC PO Amlodipine Besylate 5 MG DAILY 01/02 1000 AC 01/02 PO 0924 Amlodipine Besylate 5 MG ONCE ONE 01/02 0930 DC 01/02 PO 01/02 0931 1112 Amlodipine Besylate 0 .STK-MED ONE 01/01 1704 DC PO Amlodipine Besylate 10 MG ONCE ONE 01/01 1615 DC 01/01 PO 01/01 1616 1700 Cyanocobalamin/ 1 BAG DAILY 01/01 1600 DC 01/01 Thiamine/Pyridoxine IV 01/01 2359 1736 Dextrose/Water 1,000 ML Folic Acid 1 MG DAILY 01/02 1000 AC 01/02 PO 0917 Lactated Ringer's 1,000 ML Q10H 01/01 1630 AC 01/02 IV 0253 Lisinopril 5 MG DAILY 01/02 1000 AC 01/02 PO 0923 Lorazepam 0 .STK-MED ONE 01/01 1805 DC PO Lorazepam 2 MG Q6 01/01 1800 AC 01/02 PO 1117 Lorazepam 0 .STK-MED ONE 01/01 1720 DC .ROUTE Lorazepam 0 .STK-MED ONE 01/01 1620 DC .ROUTE Lorazepam 0 Q1P PRN 01/01 1615 AC 01/02 IV 0913 Lorazepam 2 MG ONE ONE 01/01 1615 DC 01/01 IV 01/01 1616 1620 Lorazepam 2 MG ONE ONE 01/01 1430 DC 07 IV 01/01 1431 1436 Lorazepam 0 .STK-MED ONE 01/01 1422 DC .ROUTE Magnesium Oxide 400 MG BID 01/02 1000 AC 01/02 PO 01/02 2201 1112 Multivitamins 1 TAB DAILY 01/02 1000 AC 01/02 Therapeutic PO 0917 Nicotine 14 MG DAILY 01/02 1000 DC 01/02 TOP 0041 Nicotine 2 MG Q3P PRN 01/02 1000 AC 01/02 PO 1111 Nicotine 21 MG DAILY 01/02 1000 AC TOP Omeprazole 40 MG DAILY AC 01/02 0700 AC 01/02 PO 0513 Ondansetron HCl 0 .STK-MED ONE 01/01 1623 DC .ROUTE Ondansetron HCl 4 MG Q6P PRN 01/01 1615 AC 01/01 IV 1620 Oxycodone/ 1 TAB Q6P PRN 01/01 1600 AC Acetaminophen PO Oxycodone/ 2 TAB Q6P PRN 01/01 1600 AC Acetaminophen PO Potassium Chloride 40 MEQ ONCE ONE 01/02 1000 DC PO 01/02 1001 Potassium Chloride 40 MEQ ONCE ONE 01/02 0945 DC 01/02 PO 01/02 0946 1112 Thiamine HCl 0 .STK-MED ONE 01/01 1737 DC PO Thiamine HCl 100 MG DAILY 01/01 1557 AC 01/02 PO 0917 Past History Past Medical History Neurological: seizure, TIA, STROKE AVASCULAR NECROSIS EENT: NONE Cardiovascular: hypertension, hyperlipidemia, TACHYCARDIA Respiratory: bronchitis Gastrointestinal: GERD Hepatic: FATTY LIVER Renal: NONE Musculoskeletal: L RIB FX Psychiatric: alcohol dependence, depression Endocrine: diabetes Blood Disorders: NONE Cancer(s): NONE ARCHITECTURE CONSULTANT/Reproductive: NONE Past Surgical History Surgical History: L HIP Skull surgery Psychosocial History Strengths/Capabilities: Tx motivated at present. Physical Limitations (Interventions): Chronic pattern of relapse Psychiatric Treatment History Psych Treatment Psychiatric Treatment Yes (as above) Diagnosis: None noted Risk Factors: SA/MH hospitalized, substance abuse, male Substance Use/Abuse History Drug Use/Abuse Substances Used/Abused Yes (as above) Substance Abuse Treatment Substance Abuse Treatment Past Substance Abuse [place] Yes (as above) Assessment/Plan Mental Status Mental Status Exam: Presentation/Appearance: Cooperative with evaluation. Hospital garb. Orientation: x3 Sensorium: Awake and alert Eye contact: Appropriate Affect: Blunted Mood: "Somber" Depression: Endorses Anxiety: Endorses Thought Content: - Denies SI/HI, AH/VH, PI. States and also believes they will not kill themselves. - Denies Hopeless/Helpless Thoughts Thought Process: Linear, some perseveration on fear of infection Associations: Appropriate Speech: WNL Judgment: Poor Insight: Fair Cognition: Memory: Grossly intact Attention/Concentration: Fair Fund of Knowledge: Adequate Abstractions: Did not assess MMSE: Did not assess Brief ROS Gait: Not observed Sleep: Poor Appetite: Poor, reports is improving Energy: Fair IADLs/ADLs: Independent Lab Results: Laboratory Tests 01/02/17 0640: Anion Gap 11, Estimated GFR > 60, BUN/Creatinine Ratio 11.3, Phosphorus 2.6, Magnesium 1.4 L, Total Bilirubin 1.9 H, Direct Bilirubin 0.6 H, AST 57, ALT 44, Alkaline Phosphatase 78, Total Protein 7.1, Albumin 4.4, CBC w Diff NO MAN DIFF REQ, RBC 4.93, MCV 93.2, MCH 32.2 H, RDW 13.5, MPV 6.5 L, Gran % 70.0, Lymphocytes % 20.1 L, Monocytes % 8.5, Eosinophils % 0.8, Basophils % 0.6, Absolute Granulocytes 4.3, Absolute Lymphocytes 1.2, Absolute Monocytes 0.5, Absolute Eosinophils 0, Absolute Basophils 0, PUBS MCHC 34.5, Hepatitis A IgM Ab NONREACTIVE, Hep Bs Antigen NONREACTIVE, Hep B Core IgM Ab Conf NONREACTIVE, Hepatitis C Antibody NONREACTIVE, HIV 1&2 Ab Western Blot NONREACTIVE 01/01/17 1214: Urine Opiates Screen < 100.00, Methadone Screen < 40, Barbiturate Screen < 60, Ur Phencyclidine Scrn < 6.00, Amphetamines Screen < 100, U Benzodiazepines Scrn < 85, Urine Cocaine Screen < 50, Urine Cannabis Screen 12.30 01/01/17 0122: Anion Gap 16, Estimated GFR > 60, BUN/Creatinine Ratio 12.5, Glucose 105 H, Calcium 8.9, Phosphorus 4.6 H, Magnesium 1.9, Total Bilirubin 0.9, AST 87 H, ALT 60, Alkaline Phosphatase 76, Total Protein 8.1, Albumin 5.0, Globulin 3.1, Albumin/Globulin Ratio 1.6, Cortisol PM Sample 17.9 H, CBC w Diff NO MAN DIFF REQ, RBC 5.45, MCV 92.9, MCH 32.0 H, RDW 13.6, MPV 5.9 L, Gran % 55.1, Lymphocytes % 36.8, Monocytes % 7.2, Eosinophils % 0.6, Basophils % 0.3, Absolute Granulocytes 2.9, Absolute Lymphocytes 2.0, Absolute Monocytes 0.4, Absolute Eosinophils 0, Absolute Basophils 0, PUBS MCHC 34.5, Serum Alcohol 410.0 Microbiology 01/01 1601 LOWER RESP: Respiratory Culture - COLB 01/01 160 LOWER RESP: Gram Stain - COLB Diffential Diagnosis: Alcohol use disorder, severe Rule out adjustment disorder Rule out unspecified mood disorder Impression: 46-year-old male presents to [facility] intoxicated and requesting detox. He attributes his current drinking to multiple stressors. At present he endorses low mood and anxiety and is agreeable to follow-up care. He would likely benefit from residential [facility] level of care. At present, while not a risk to self he is a high risk for relapse and continued problem drinking if he does not accept appropriate substance abuse intervention. Provisional Treatment Plan: 1. Continue CIWA, vitamin supplementation, and Ativan taper. 2. Appreciate social work consultation for disposition planning. 3. Patient to consider medication for alcohol cravings including Campral and naltrexone once detox is complete. Due to hepatic issues likely better candidate for Campral, however TID dosing may be a challenge for this patient. Thank you for including psychiatry in this case we will follow on an as-needed basis.
[2017-01-02 14:48] VITALS: BP 136/94
--- NOTE | 2017-01-02 15:57 | NUR ---
jessica aware of this ETOH detox pt and collaborated with APRN. Jessica Santos to speak with pt about discharge planing when he is better able to participate. Chart reviewed with Aprn. Campbell available upon request.
[2017-01-02 22:28] VITALS: BP 124/80
[2017-01-03 06:10] VITALS: BP 111/74
--- NOTE | 2017-01-03 07:25 | PN- Housestaff ---
LORRIE NASSAR,[facility] 01/03/17 0725: Subjective Follow-up For: ETOH Detox Hypertensive Urgency Nicotine Dependence Subjective: Patient was very agitated this morning and wanted to leave AMA. As per patient the nicotine patch does not work for him and he wants to have a cigarette. Review of Systems Constitutional: Reports: see HPI. Objective Last 24 Hrs of Vital Signs/I&O Vital Signs Date Time Temp Pulse Resp B/P B/P Pulse O2 O2 Flow FiO2 Mean Ox Delivery Rate 01/04 920 116 142/104 01/04 920 116 142/104 01/03 0610 98.5 100 20 111/74 100 Room Air 01/02 2228 97.9 92 20 124/80 95 Room Air 01/02 1941 Room Air Room Air Physical Exam General Appearance: Alert, Oriented X3, Cooperative, No Acute Distress Other Physical Findings: Skin warm to touch, diaphoretic HEENT Mucous Membr. moist/pink Cardiovascular Regular Rate, Normal S1, Normal S2, tachycardia Lungs Normal Air Movement, diminished breath sounds in the basilar regions bilaterally Abdomen Normal Bowel Sounds, Soft, mild tenderness to palpation of the epigastric region Extremities No Edema, Normal Pulses Vascular Pulses Symmetrical Current Medications: Current Medications Sig/Beny Start time Last Medication Dose Route Stop Time Status Admin Acetaminophen 650 MG Q6P PRN 01/01 1600 AC PO Amlodipine Besylate 5 MG DAILY 01/02 1000 AC 01/03 PO 0920 Folic Acid 1 MG DAILY 01/02 1000 AC 01/03 PO 0920 Lactated Ringer's 1,000 ML Q10H / 1630 DC 01/02 IV 1555 Lisinopril 5 MG DAILY 01/02 1000 AC 01/03 PO 0920 Lorazepam 2 MG Q6 01/01 1800 AC 01/03 PO 1142 Lorazepam 0 Q1P PRN 01/01 1615 AC 01/03 IV 0921 Magnesium Oxide 400 MG BID 01/02 1000 DC 01/02 PO 01/02 2201 2225 Multivitamins 1 TAB DAILY 01/02 1000 AC 01/03 Therapeutic PO 0920 Nicotine 2 MG Q3P PRN 01/02 1000 AC 01/03 PO 0820 Nicotine 21 MG DAILY 01/02 1000 AC 01/03 TOP 0819 Omeprazole 40 MG DAILY AC 01/02 0700 AC 01/03 PO 0618 Ondansetron HCl 4 MG Q6P PRN 01/01 1615 AC 01/01 IV 1620 Oxycodone/ 1 TAB Q6P PRN 01/01 1600 AC Acetaminophen PO Oxycodone/ 2 TAB Q6P PRN 01/01 1600 AC Acetaminophen PO Thiamine HCl 100 MG DAILY 01/01 1557 AC 01/03 PO 0920 Last 24 Hrs of Lab/Sj Results Last 24 Hrs of Labs/Mics: Laboratory Tests 01/03/17 0655: Anion Gap 11, Estimated GFR > 60, BUN/Creatinine Ratio 13.8, Magnesium 1.7, Total Bilirubin 1.3, Direct Bilirubin 0.5 H, AST 50, ALT 44, Alkaline Phosphatase 70, Total Protein 7.0, Albumin 4.3, CBC w Diff NO MAN DIFF REQ, RBC 5.00, MCV 94.8 H, MCH 32.3 H, RDW 13.6, MPV 7.0 L, Gran % 65.6, Lymphocytes % 24.4, Monocytes % 8.4, Eosinophils % 1.3, Basophils % 0.3, Absolute Granulocytes 3.5, Absolute Lymphocytes 1.3, Absolute Monocytes 0.4, Absolute Eosinophils 0.1, Absolute Basophils 0, PUBS MCHC 34.1 Assessment/Plan Assessment: 46 y/o gentleman with a PMH EtOH dependence, withdrawal seizure, hepatic streatosis, 2 indistinct low-density lesions in the right lobe of the liver visualized on CT abdomen pelvis in 2013, 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 Patient has had multiple previous admissions for alcohol detox most recently November 2016, drinks 1 liter of [place] daily, occasional marijuana use, daily tobacco use at 8 cigarettes per day. ROS: Reports intermittent productive cough with green sputum over the past 2 weeks, recent diagnosis of sinus infection for which he was prescribed Augmentin and prednisone but was noncompliant with. Today he endorses nausea, vomiting, unsteady gait, generalized body tremors. He denies visual/auditory hallucinations, tactile sensation, recent tongue biting/loss of bladder or bowel control, LOC, choking on food/liquids, fever, chills, chest pain, shortness of breath. VS on admission: BP 167/115, HR 106, RR 20, SPO2 94% on RA, T 98.1 Pertinent labs on admission: WBC 5.4, H&H 17.5/50.7, platelets 128K, sodium 146, potassium 4.4, bicarbonate 31, BUN/CR 10/0.8, glucose 105. AST/ALT: 87/60 Total bilirubin: 0.9 Urine tox: EtOH 410 Problem list: 1. Alcohol dependence with detox 2. Hypertensive urgency 3. Thrombocytopenia 4. Elevated bicarbonate 5. Hepatic steatosis 6. Indistinct low-density lesions in R lobe of the liver visualized on CT abd/ pelvis in 2013 7. History of hypertriglyceridemia, hypercholesterolemia (2015) Plan: * Ativan per CIWA protocol with 2 mg Q6 PO, 1 mg IV Q1PRN.His CIWA scores have been ranging between 2-13 within past 24 hours. Continue with thiamine, folic acid and multivitamin supplementation. Follow-up INR. * Antiemetics with Zofran. Follow-up EKG for QT * Hypertensive urgency: Likely secondary to withdrawal/noncompliance with his medications. patient was given amlodipine 10 mg 1 in ED, restarted him on his home medication of amlodipine 5 mg and lisinopril 5 mg daily * Thrombocytopenia: Likely secondary to alcohol effects on bone marrow suppression 128-->85-->82. ALPs for DVT prophylaxis, will recheck platelet levels over the next few days prior to pharmacological anticoagulation. * Elevated bicarbonate: Likely secondary to respiratory suppression in the setting of chronic alcohol use with compensatory renal compensation. Chest x-ray unremarkable for pneumonia. Incentive spirometry, aspiration precaution while on CIWA, close monitoring for hypoxia that may require airway protection * Hepatic steatosis: Alcohol abstinence/weight loss recommendations at discharge * Hypertriglyceridemia/hypercholesterolemia: We'll repeat lipid panel, Calculate ASCVD score. Recommend outpatient follow-up with PCP once normalization of LFTs and initiate statin bvased on cardiovasular risk * Indistinct low-density lesion in right lobe of liver: Previously visualized on CT. Will discuss with radiology on utility of repeat CT vs MRI to better delineate * Nicotine Dependence: Patient wanted to leave AMA today because he thinks nicotine patches are not working for him. Patient was informed about the risk of having a seizure from alcohol withdrawl if he leaves AMA. Patient decided to stay and was provided with nicotine patch 21mcg. * Heart healthy diet * ALPs * Full code Problem List: 1. Alcohol dependence with withdrawal 2. Hypertensive urgency 3. Nicotine dependence 4. Hepatic steatosis 5. Lesion of right lobe of liver Pain Ratin Pain Location: None Pain Goal: Remain pain free Pain Plan: Pain Pathway Tomorrow's Labs & Rationales: CBC(Thrombocytopenia), BEP JUDY ZAMARRIPA MD 01/03/17 1131: Attending MD Review Statement Attending Statement Attending MD Statement: examined this patient, discuss w/resident/PA/HOT KNIFE FOXING CUTTER, agreed w/resident/PA/H[employer] KNIFE FOXING CUTTER, reviewed EMR data (avail) Attending Assessment/Plan: 46M PMH withdrawal seizure presenting with signs and symptoms of alcohol withdrawal. Agitated, diaphoretic, tachycardic, has a history of seizure from EtOH, drinks 1L rum nightly. Exam, labs unremarkable. Plan - Continue on general medicine - Continue Nicotine patch and gum - Ativan taper and PRN - Vitamin supplementation - Continue home medications - Social work and psychiatry evaluation - DVT PPx
[2017-01-03 08:29] LABS: ABSOLUTE BASOPHIL COUNT 0 /CUMM (0.0-0.2); ABSOLUTE EOSINOPHIL COUNT 0.1 /CUMM (0.0-0.7); ABSOLUTE GRANULOCYTE CT 3.5 /CUMM (1.4-6.5); ABSOLUTE LYMPH COUNT 1.3 /CUMM (1.2-3.4); ABSOLUTE MONOCYTE COUNT 0.4 /CUMM (0.10-0.60); BASOPHIL % 0.3 % (0.0-2.0); EOSINOPHIL % 1.3 % (0-5); GRANULOCYTE % 65.6 % (42.2-75.2); HEMATOCRIT 47.4 % (42-52); MEAN CORPUSCULAR HGB 32.3 PG (27.0-31.0); MEAN CORPUSCULAR HGB CONC 34.1 G/DL (33.0-37.0); MEAN CORPUSCULAR VOLUME 94.8 FL (80.0-94.0); PLATELET COUNT 82 /CUMM (130-400); RBC DISTRIBUTION WIDTH 13.6 % (11.5-14.5); WHITE BLOOD CELL COUNT 5.3 /CUMM (4.8-10.8)
[2017-01-03 22:35] VITALS: BP 124/98
--- NOTE | 2017-01-04 04:10 | PN- Housestaff ---
See Addendum Subjective Follow-up For: Alcohol withdrawal Thrombocytopenia Hypokalemia Hypomagnesemia Complaints: anxious Subjective: Interval history: This morning he reports feeling slightly anxious but better than he did yesterday. He denies any fevers, chills, chest, shortness of breath, nausea, visual or auditory hallucinations, abdominal pain or diarrhea. Review of Systems Constitutional: Reports: see HPI. EENTM: Reports: no symptoms. Cardiovascular: Reports: no symptoms. Respiratory: Reports: see HPI. Gastrointestinal: Reports: see HPI. Musculoskeletal: Reports: see HPI. Objective Last 24 Hrs of Vital Signs/I&O Vital Signs Date Time Temp Pulse Resp B/P B/P Pulse O2 O2 Flow FiO2 Mean Ox Delivery Rate 01/03 2235 97.5 91 20 124/98 99 Room Air 01/03 0920 116 142/104 01/03 0920 116 142/104 Intake & Output 01/04 0800 01/04 0000 01/03 1600 Intake Total 1820 Output Total 600 Balance 1220 Intake, IV 20 Intake, Oral 1800 Output, Urine 600 Physical Exam General Appearance: Alert, Cooperative Skin: No Significant Lesion HEENT: Mucous Membr. moist/pink Cardiovascular: Regular Rate, Normal S1, Normal S2 Lungs: Normal Air Movement Abdomen: Normal Bowel Sounds, Soft, No Tenderness Extremities: No Edema, Normal Pulses Current Medications: Current Medications Sig/Beny Start time Last Medication Dose Route Stop Time Status Admin Acetaminophen 650 MG Q6P PRN 01/01 1600 AC PO Amlodipine Besylate 5 MG DAILY 01/02 1000 AC 01/03 PO 0920 Folic Acid 1 MG DAILY 01/02 1000 AC 01/03 PO 0920 Lisinopril 5 MG DAILY 01/02 1000 AC 01/03 PO 0920 Lorazepam 1.5 MG Q8 01/04 1400 UNVr PO Lorazepam 2 MG Q6 01/01 1800 DC 01/04 PO 0602 Lorazepam 0 Q1P PRN 01/01 1615 AC 01/04 IV 0341 Multivitamins 1 TAB DAILY 01/02 1000 AC 01/03 Therapeutic PO 0920 Nicotine 2 MG Q3P PRN 01/02 1000 AC 01/03 PO 0820 Nicotine 21 MG DAILY 01/02 1000 AC 01/03 TOP 0819 Omeprazole 40 MG DAILY AC 01/02 0700 AC 01/04 PO 0602 Ondansetron HCl 4 MG Q6P PRN 01/01 1615 AC 01/01 IV 1620 Oxycodone/ 1 TAB Q6P PRN 01/01 1600 AC Acetaminophen PO Oxycodone/ 2 TAB Q6P PRN 01/01 1600 AC Acetaminophen PO Thiamine HCl 100 MG DAILY 01/01 1557 AC 01/03 PO 0920 Trazodone HCl 50 MG AT BEDTIME PRN 01/03 1530 AC PO Last 24 Hrs of Lab/Sj Results Last 24 Hrs of Labs/Mics: Laboratory Tests 01/04/17 0624: Sodium Pending, Potassium Pending, Chloride Pending, Carbon Dioxide Pending, Anion Gap Pending, BUN Pending, Creatinine Pending, BUN/Creatinine Ratio Pending , CBC w Diff Pending, WBC Pending, RBC Pending, Hgb Pending, Hct Pending, MCV Pending, MCH Pending, RDW Pending, Plt Count Pending, MPV Pending, PUBS MCHC Pending Orders CIWA Score (last 24 hrs): Between 0 and 9 Assessment/Plan Assessment: 46 y/o gentleman with a PMH EtOH dependence, withdrawal seizure, hepatic streatosis, 2 indistinct low-density lesions in the right lobe of the liver visualized on CT abdomen pelvis in 2013, 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 Patient has had multiple previous admissions for alcohol detox most recently November 2016, drinks 1 liter of [employer] daily, occasional marijuana use, daily tobacco use at 8 cigarettes per day. ROS: Reports intermittent productive cough with green sputum over the past 2 weeks, recent diagnosis of sinus infection for which he was prescribed Augmentin and prednisone but was noncompliant with. Today he endorses nausea, vomiting, unsteady gait, generalized body tremors. He denies visual/auditory hallucinations, tactile sensation, recent tongue biting/loss of bladder or bowel control, LOC, choking on food/liquids, fever, chills, chest pain, shortness of breath. VS on admission: BP 167/115, HR 106, RR 20, SPO2 94% on RA, T 98.1 Pertinent labs on admission: WBC 5.4, H&H 17.5/50.7, platelets 128K, sodium 146, potassium 4.4, bicarbonate 31, BUN/CR 10/0.8, glucose 105. AST/ALT: 87/60 Total bilirubin: 0.9 Urine tox: EtOH 410 Problem list: 1. Alcohol dependence with detox 2. Hypertensive urgency 3. Thrombocytopenia 4. Elevated bicarbonate 5. Hepatic steatosis 6. Indistinct low-density lesions in R lobe of the liver visualized on CT abd/ pelvis in 2013 7. History of hypertriglyceridemia, hypercholesterolemia (2015) Plan: * We'll decrease Ativan to 1.5 mg Q8, continue with 1 mg IV Q1PRN * Continue with thiamine, folic acid and multivitamin supplementation * Blood pressure well controlled at this time * Thrombocytopenia likely secondary to bone marrow suppression in the context of chronic alcohol abuse. We'll continue DVT prophylaxis with ALPs * Hepatic steatosis: Alcohol abstinence/weight loss recommendations at discharge * Indistinct low-density lesion in right lobe of liver: Previously visualized on CT. Will discuss with radiology on utility of repeat CT vs MRI to better delineate * Nicotine Dependence: Patient wanted to leave AMA today because he thinks nicotine patches are not working for him. Patient was informed about the risk of having a seizure from alcohol withdrawl if he leaves AMA. Patient decided to stay and was provided with nicotine patch 21mcg. * Heart healthy diet * ALPs * Full code Problem List: 1. Alcohol dependence with withdrawal 2. Thrombocytopenia 3. Hepatic steatosis 4. Lesion of right lobe of liver Pain Ratin Pain Location: NA Pain Goal: Pain 4 or less Pain Plan: PAin pathway Tomorrow's Labs & Rationales: CBC to monitor thrombocytopenia DVT/Prophylaxis: mechanical
[2017-01-04 08:49] LABS: ABSOLUTE BASOPHIL COUNT 0 /CUMM (0.0-0.2); ABSOLUTE EOSINOPHIL COUNT 0.1 /CUMM (0.0-0.7); ABSOLUTE GRANULOCYTE CT 4.3 /CUMM (1.4-6.5); ABSOLUTE LYMPH COUNT 1.5 /CUMM (1.2-3.4); ABSOLUTE MONOCYTE COUNT 0.6 /CUMM (0.10-0.60); BASOPHIL % 0.4 % (0.0-2.0); EOSINOPHIL % 1.2 % (0-5); GRANULOCYTE % 65.8 % (42.2-75.2); HEMATOCRIT 45.6 % (42-52); MEAN CORPUSCULAR HGB 32.2 PG (27.0-31.0); MEAN CORPUSCULAR HGB CONC 34.1 G/DL (33.0-37.0); MEAN CORPUSCULAR VOLUME 94.4 FL (80.0-94.0); MEAN PLATELET VOLUME 7.1 FL (7.4-10.4); RBC DISTRIBUTION WIDTH 13.8 % (11.5-14.5); RED BLOOD CELL CT 4.83 /CUMM (4.70-6.10); WHITE BLOOD CELL COUNT 6.6 /CUMM (4.8-10.8)
[2017-01-04 09:30] VITALS: BP 122/90
[2017-01-04 09:42] VITALS: BP 122/90
[2017-01-04 11:31] LABS: PLATELET COUNT 100 /CUMM (130-400)
[2017-01-04 14:24] VITALS: BP 136/80
[2017-01-04 20:00] VITALS: BP 126/88
[2017-01-04 22:57] VITALS: BP 120/98
[2017-01-05 07:17] VITALS: BP 130/80
--- NOTE | 2017-01-05 08:15 | PN- Housestaff ---
LORRIE NASSAR,[facility] 01/05/17 0815: Subjective Follow-up For: Alcohol withdrawal Thrombocytopenia Hypokalemia Hypomagnesemia Subjective: Patient is still anxious but better yesterday. Otherwise stable. Denies any fever, chills, nausea or overnight events. Review of Systems Constitutional: Denies: see HPI. Objective Last 24 Hrs of Vital Signs/I&O Vital Signs Date Time Temp Pulse Resp B/P B/P Pulse O2 O2 Flow FiO2 Mean Ox Delivery Rate 01/05 1600 98.0 98 20 132/100 01/05 1414 98.0 98 20 132/100 95 Room Air 01/05 1015 101 138/102 01/05 1015 102 138/102 01/05 0717 98.1 95 20 130/80 95 01/04 2257 98.0 100 24 120/98 96 Room Air Intake & Output 01/05 1600 01/05 0800 01/05 0000 Intake Total 350 340 240 Output Total Balance 350 340 240 Intake, Oral 350 340 240 Physical Exam General Appearance: Alert, Oriented X3, Cooperative Other Physical Findings: Skin warm to touch, diaphoretic HEENT Mucous Membr. moist/pink Cardiovascular Regular Rate, Normal S1, Normal S2, tachycardia Lungs Normal Air Movement, diminished breath sounds in the basilar regions bilaterally Abdomen Normal Bowel Sounds, Soft, mild tenderness to palpation of the epigastric region Extremities No Edema, Normal Pulses, tremors in hands Vascular Pulses Symmetrical Current Medications: Current Medications Sig/Beny Start time Last Medication Dose Route Stop Time Status Admin Acetaminophen 650 MG Q6P PRN 01/01 1600 AC PO Amlodipine Besylate 5 MG DAILY 01/02 1000 AC 01/05 PO 1015 Folic Acid 1 MG DAILY 01/02 1000 AC 01/05 PO 1015 Lisinopril 5 MG DAILY 01/02 1000 AC 01/05 PO 1015 Lorazepam 0.5 MG DAILY NEEDED PRN 01/05 1700 AC PO 01/12 1659 Lorazepam 0.5 MG Q1P PRN 01/05 1630 DC IV Lorazepam 1.5 MG Q8 01/04 1400 AC 01/05 PO 1345 Lorazepam 0 Q1P PRN 01/01 1615 DC / IV 1959 Multivitamins 1 TAB DAILY 01/02 1000 AC 01/05 Therapeutic PO 1015 Nicotine 2 MG Q3P PRN 01/02 1000 AC 01/04 PO 2019 Nicotine 21 MG DAILY 01/02 1000 AC 01/05 TOP 1014 Omeprazole 40 MG DAILY AC 01/02 0700 AC 01/05 PO 0600 Ondansetron HCl 4 MG Q6P PRN 01/01 1615 AC 01/01 IV 1620 Oxycodone/ 1 TAB Q6P PRN 01/01 1600 AC Acetaminophen PO Oxycodone/ 2 TAB Q6P PRN 01/01 1600 AC Acetaminophen PO Thiamine HCl 100 MG DAILY 01/01 1557 AC 01/05 PO 1015 Trazodone HCl 50 MG AT BEDTIME PRN 01/03 1530 AC PO Assessment/Plan Assessment: 46 y/o gentleman with a PMH EtOH dependence, withdrawal seizure, hepatic streatosis, 2 indistinct low-density lesions in the right lobe of the liver visualized on CT abdomen pelvis in 2013, 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 Patient has had multiple previous admissions for alcohol detox most recently November 2016, drinks 1 liter of [place] daily, occasional marijuana use, daily tobacco use at 8 cigarettes per day. ROS: Reports intermittent productive cough with green sputum over the past 2 weeks, recent diagnosis of sinus infection for which he was prescribed Augmentin and prednisone but was noncompliant with. Today he endorses nausea, vomiting, unsteady gait, generalized body tremors. He denies visual/auditory hallucinations, tactile sensation, recent tongue biting/loss of bladder or bowel control, LOC, choking on food/liquids, fever, chills, chest pain, shortness of breath. VS on admission: BP 167/115, HR 106, RR 20, SPO2 94% on RA, T 98.1 Pertinent labs on admission: WBC 5.4, H&H 17.5/50.7, platelets 128K, sodium 146, potassium 4.4, bicarbonate 31, BUN/CR 10/0.8, glucose 105. AST/ALT: 87/60 Total bilirubin: 0.9 Urine tox: EtOH 410 Problem list: 1. Alcohol dependence with detox 2. Hypertensive urgency 3. Thrombocytopenia 4. Elevated bicarbonate 5. Hepatic steatosis 6. Indistinct low-density lesions in R lobe of the liver visualized on CT abd/ pelvis in 2013 7. History of hypertriglyceridemia, hypercholesterolemia (2015) Plan: * We'll decrease Ativan to 1.5 mg Q8, continue with 0.5 PO Q1PRN. * Continue with thiamine, folic acid and multivitamin supplementation * Blood pressure well controlled at this time * Thrombocytopenia likely secondary to bone marrow suppression in the context of chronic alcohol abuse. We'll continue DVT prophylaxis with ALPs * Hepatic steatosis: Alcohol abstinence/weight loss recommendations at discharge * Indistinct low-density lesion in right lobe of liver: Previously visualized on CT. Will discuss with radiology on utility of repeat CT vs MRI to better delineate * Nicotine Dependence: Patient wanted to leave AMA because he thinks nicotine patches are not working for him. Patient was informed about the risk of having a seizure from alcohol withdrawl if he leaves AMA. Patient decided to stay and was provided with nicotine patch 21mcg. * Heart healthy diet * ALPs * Full code Problem List: 1. Alcohol dependence with withdrawal 2. Nicotine dependence 3. Hypertensive urgency 4. Thrombocytopenia 5. Hepatic steatosis 6. Lesion of right lobe of liver Pain Ratin Pain Location: None Pain Goal: Remain pain free Pain Plan: Pain Pathway Tomorrow's Labs & Rationales: None CALEB LARSON MD 01/05/17 1247: Attending MD Review Statement Attending Statement Attending MD Statement: examined this patient, discuss w/resident/PA/OPTICAL DESIGNER, agreed w/resident/PA/OPTICAL DESIGNER, reviewed EMR data (avail), discussed with nursing, amended to note Attending Assessment/Plan: Patient seen and examined. Resting comfortably and not in acute distress. His CIWA has been 0 for the most part however he does have occasional high scores. Nursing staff report that he gets these-scores went to request for IV Ativan for anxiety. I did have an extensive conversation with the patient. He clearly has underlying anxiety disorders. He reports recent loss of his at home and separation from his children. Patient does not appear motivated to follow-up with psychiatrist service all alcohol rehabilitation service as an outpatient due to financial concerns. Please note that records from the past show similar reluctance to follow-up with outpatient alcohol rehabilitation. He also reports complaints of erectile dysfunction. He relates it to the onset of use of amlodipine and lisinopril for blood pressure control and was inquiring regarding a new medication. These medications however have not been associated with erectile dysfunction. His other home meds include multivitamins. She does look have a history of cardiovascular or neurologic disorder however he did have significantly elevated triglyceride levels back in May 2016. There is also the possibility of performance anxiety given his report of having a new partner. Recommendations: -Taper down his benzodiazepine therapy. He does not appear to be in active alcohol withdrawal at present. Patient has baseline tremors. This has been documented in his past records. Begin patient on Ativan 1 mg tomorrow 3 times a day. Change when necessary dose of Ativan to 0.5 mg as needed orally. -Begin patient on melatonin at bedtime for sleep. He reports using this medication at home. -Check fasting lipid panel in the morning. -His blood pressure is controlled on amlodipine and Norvasc. Continue this regimen. -Anticipate discharge in the next 48 hours. Recommend follow-up from the social work service. -Recommend outpatient follow-up with his primary care provider for testing of testosterone levels. -Patient is worried about starting anxiolytic medications chronically because he is afraid that the state will confiscate his guns. I did assure him that his bones would not be taking if use responsibly. I also did advise him that it is not recommended that he operates his guns while taking anxiolytic medications. Please follow-up with the psychiatric service prior to discharge as he is unwilling to start any medications for anxiety.
[2017-01-05 14:14] VITALS: BP 132/100
[2017-01-05 16:00] VITALS: BP 132/100
[2017-01-05 22:42] VITALS: BP 124/92
[2017-01-06] VITALS: BP 124/92
[2017-01-06 03:30] VITALS: BP 120/96
--- NOTE | 2017-01-06 07:46 | PN- Housestaff ---
LORRIE NASSAR,[facility] 01/06/17 0746: Subjective Follow-up For: Alcohol withdrawal Thrombocytopenia Hypokalemia Hypomagnesemia Subjective: I have personally seen and examined the patient this morning. Still anxious but much better than yesterday. Also have some mild tremors in both hands. Otherwise stable, denies any fevers, chills, shortness of breath, hallucinations or overnight events. Review of Systems Constitutional: Denies: see HPI. Objective Last 24 Hrs of Vital Signs/I&O Vital Signs Date Time Temp Pulse Resp B/P B/P Pulse O2 O2 Flow FiO2 Mean Ox Delivery Rate 01/06 1447 98.3 96 20 120/80 96 Room Air 01/06 1036 81 130/96 01/06 1036 81 130/96 01/06 0800 98.3 88 18 130/86 01/06 0330 98.3 90 20 120/96 96 01/06 0000 98.6 93 18 124/92 01/05 2242 98.6 93 18 124/92 99 Room Air 01/05 1600 98.0 98 20 132/100 Intake & Output 01/06 1600 01/06 0800 01/06 0000 Intake Total 490 720 Output Total Balance 490 720 Intake, IV 10 Intake, Oral 480 720 Number 0 Bowel Movements Physical Exam General Appearance: Alert, Oriented X3, Cooperative, No Acute Distress Other Physical Findings: kin warm to touch, diaphoretic HEENT Mucous Membr. moist/pink Cardiovascular Regular Rate, Normal S1, Normal S2, tachycardia Lungs Normal Air Movement, diminished breath sounds in the basilar regions bilaterally Abdomen Normal Bowel Sounds, Soft, no tenderness Extremities No Edema, Normal Pulses, tremors in hands Vascular Pulses Symmetrical Current Medications: Current Medications Sig/Beny Start time Last Medication Dose Route Stop Time Status Admin Acetaminophen 650 MG Q6P PRN 01/01 1600 AC PO Amlodipine Besylate 5 MG DAILY 01/02 1000 AC 01/06 PO 1036 Folic Acid 1 MG DAILY 01/02 1000 AC 01/06 PO 1036 Lisinopril 5 MG DAILY 01/02 1000 AC 01/06 PO 1036 Lorazepam 1 MG Q12 01/06 1000 AC 01/06 PO 1031 Lorazepam 0.5 MG DAILY NEEDED PRN 01/05 1700 AC PO 01/12 1659 Lorazepam 0.5 MG Q1P PRN 01/05 1630 DC IV Lorazepam 1.5 MG Q8 01/04 1400 DC 01/06 PO 0549 Lorazepam 0 Q1P PRN 01/01 1615 DC 01/04 IV 1959 Multivitamins 1 TAB DAILY 01/02 1000 AC 01/06 Therapeutic PO 1039 Nicotine 2 MG Q3P PRN 01/02 1000 AC 01/04 PO 2019 Nicotine 21 MG DAILY 01/02 1000 AC 01/06 TOP 1029 Omeprazole 40 MG DAILY AC 01/02 0700 AC 01/06 PO 0549 Ondansetron HCl 4 MG Q6P PRN 01/01 1615 AC 01/01 IV 1620 Oxycodone/ 1 TAB Q6P PRN 01/01 1600 AC Acetaminophen PO Oxycodone/ 2 TAB Q6P PRN 01/01 1600 AC Acetaminophen PO Patient Medication 1 ED .STK-MED ONE 01/06 1404 OH Teaching ED 01/06 1405 Thiamine HCl 100 MG DAILY 01/01 1557 AC 01/06 PO 1039 Trazodone HCl 50 MG AT BEDTIME PRN 01/03 1530 AC PO Last 24 Hrs of Lab/Sj Results Last 24 Hrs of Labs/Mics: Laboratory Tests 01/06/17 0710: Triglycerides 300 H, Cholesterol 266 H, LDL Cholesterol, Calc 152 H, HDL Cholesterol 54, Cholesterol/HDL Ratio 5 H Orders CIWA Score (last 24 hrs): 0 Assessment/Plan Assessment: 46 y/o gentleman with a PMH EtOH dependence, withdrawal seizure, hepatic streatosis, 2 indistinct low-density lesions in the right lobe of the liver visualized on CT abdomen pelvis in 2013, 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 Patient has had multiple previous admissions for alcohol detox most recently November 2016, drinks 1 liter of [place] daily, occasional marijuana use, daily tobacco use at 8 cigarettes per day. ROS: Reports intermittent productive cough with green sputum over the past 2 weeks, recent diagnosis of sinus infection for which he was prescribed Augmentin and prednisone but was noncompliant with. Today he endorses nausea, vomiting, unsteady gait, generalized body tremors. He denies visual/auditory hallucinations, tactile sensation, recent tongue biting/loss of bladder or bowel control, LOC, choking on food/liquids, fever, chills, chest pain, shortness of breath. VS on admission: BP 167/115, HR 106, RR 20, SPO2 94% on RA, T 98.1 Pertinent labs on admission: WBC 5.4, H&H 17.5/50.7, platelets 128K, sodium 146, potassium 4.4, bicarbonate 31, BUN/CR 10/0.8, glucose 105. AST/ALT: 87/60 Total bilirubin: 0.9 Urine tox: EtOH 410 Problem list: 1. Alcohol dependence with detox 2. Hypertensive urgency 3. Thrombocytopenia 4. Elevated bicarbonate 5. Hepatic steatosis 6. Indistinct low-density lesions in R lobe of the liver visualized on CT abd/ pelvis in 2013 7. History of hypertriglyceridemia, hypercholesterolemia (2015) Plan: * We'll decrease Ativan to 1 mg Q8, continue with 0.5 PO Q1PRN. * Continue with thiamine, folic acid and multivitamin supplementation * Blood pressure well controlled at this time * Thrombocytopenia likely secondary to bone marrow suppression in the context of chronic alcohol abuse. We'll continue DVT prophylaxis with ALPs * Hepatic steatosis: Alcohol abstinence/weight loss recommendations at discharge * Indistinct low-density lesion in right lobe of liver: Previously visualized on CT. Will discuss with radiology on utility of repeat CT vs MRI to better delineate * Nicotine Dependence: Uses nicotine patch and gum. * Abnormal LFT's: Triglycerides 300 H, Cholesterol 266 H, LDL Cholesterol, Calc 152 H, HDL Cholesterol 54, Cholesterol/HDL Ratio 5 H. Will calculate ASCVD score, if high will consider starting the patient on low dose statin on discharge. * Heart healthy diet * ALPs * Full code Problem List: 1. Alcohol dependence with withdrawal 2. Nicotine dependence 3. Hypertensive urgency 4. Thrombocytopenia 5. Hepatic steatosis 6. Lesion of right lobe of liver Pain Ratin Pain Location: None Pain Goal: Remain pain free Pain Plan: None Tomorrow's Labs & Rationales: None(Discharge) JUDY ZAMARRIPA MD 01/06/17 1451: Attending MD Review Statement Attending Statement Attending MD Statement: examined this patient, discuss w/resident/PA/SLOT ROUTER, agreed w/resident/PA/SLOT ROUTER, reviewed EMR data (avail) Attending Assessment/Plan: 46M PMH withdrawal seizure presenting with signs and symptoms of alcohol withdrawal. Agitated, diaphoretic, tachycardic, has a history of seizure from EtOH, drinks 1L rum nightly. Exam, labs unremarkable. Patient appears like a different person today. He is calm, coherent, not agitated, pleasant, and very interesting to talk to. He has no complaints and feels well. Vitals are stable, labs reviewed. Plan - Continue on general medicine - Continue Nicotine patch and gum - Vitamin supplementation - Continue home medications - Social work and psychiatry evaluation
[2017-01-06 08:00] VITALS: BP 130/86
[2017-01-06] MEDS ORDERED: NICOTINE PATCH1 EAC3 TOP (14:05)
[2017-01-06] MEDS ORDERED: ATORVASTATIN CA40 M1 PO (14:05)
--- NOTE | 2017-01-06 14:17 | Patient Discharge Instructions ---
Discharge Instructions General Discharge Information You were seen/treated for: Alcohol detox Elevated cholesterol Watch for these problems: Nausea, vomiting, diarrhea Fevers, chills Special Instructions: Please take all medications as directed. Please follow up with your PCP in the next 1 week Diet Recommended Diet: Heart Healthy Activity Full Activity/No Limits: Yes Acute Coronary Syndrome Inclusion Criteria At DC or during hospital stay patient has or had the following: ACS DIAGNOSIS No Discharge Core Measures Meds if any: Prescribed or Continued at Discharge Meds if any: NOT Prescribed or Continued at Discharge Congestive Heart Failure Inclusion Criteria At DC or during hospital stay patient has or had the following: CHF DIAGNOSIS No Discharge Core Measures Meds if any: Prescribed or Continued at Discharge Meds if any: NOT Prescribed or Continued at Discharge Cerebrovascular accident Inclusion Criteria At DC or during hospital stay patient has or had the following: CVA/TIA Diagnosis No Discharge Core Measures Meds if any: Prescribed or Continued at Discharge Meds if any: NOT Prescribed or Continued at Discharge Venous thromboembolism Inclusion Criteria VTE Diagnosis No VTE Type NONE VTE Confirmed by (Test) NONE Discharge Core Measures - Per Current guidelines, there needs to be overlap - treatment for the first 5 days of Warfarin therapy. - If discharged on Warfarin prior to 5 days of - overlap therapy, the patient will need to be - assessed for post discharge needs including - *Post discharge parental anticoagulation - *Warfarin and/or parental anticoagulation education - *Follow up date to check INR post discharge At least 5 days overlap therapy as Inpatient No Meds if any: Prescribed or Continued at Discharge Note: Overlap Therapy is Warfarin and Anticoagulant Meds if any: NOT Prescribed or Continued at Discharge
[2017-01-06 14:47] VITALS: BP 120/80
[2017-01-06 23:32] VITALS: BP 124/82
[2017-01-07 06:57] VITALS: BP 118/72
--- NOTE | 2017-01-07 07:45 | PN- Housestaff ---
LORRIE NASSAR,HERMELINDA 01/07/17 0745: Subjective Complaints: feels shaky this morning, feels shaky this morning Subjective: Interval history: This morning Mr Montesinos dates that he feels slightly shaky but this is due to his low blood sugar. He denies any headaches, blurred vision, chest pain, shortness of breath, nausea, abdominal pain, issues with balance, fevers or chills. Review of Systems Constitutional: Reports: see HPI. Denies: no symptoms. EENTM: Reports: no symptoms. Cardiovascular: Reports: no symptoms. Respiratory: Reports: no symptoms. Gastrointestinal: Reports: no symptoms. Musculoskeletal: Reports: no symptoms. Skin: Reports: no symptoms. Objective Last 24 Hrs of Vital Signs/I&O Vital Signs Date Time Temp Pulse Resp B/P B/P Pulse O2 O2 Flow FiO2 Mean Ox Delivery Rate 01/07 0746 118/72 01/07 0746 118/72 01/07 0657 98.1 91 20 118/72 97 Room Air 01/06 2332 98.1 88 20 124/82 96 Intake & Output 01/07 1600 01/07 0800 01/07 0000 Intake Total 850 0 480 Output Total Balance 850 0 480 Intake, Oral 850 0 480 Physical Exam General Appearance: Alert, Cooperative, No Acute Distress Skin: No Rashes, No Breakdown HEENT: Atraumatic, PERRLA, EOMI, Mucous Membr. moist/pink Cardiovascular: Regular Rate, Normal S1, Normal S2 Lungs: Clear to Auscultation, Normal Air Movement Abdomen: Normal Bowel Sounds, Soft, No Tenderness Extremities: No Edema, Normal Pulses Current Medications: Current Medications Sig/Beny Start time Last Medication Dose Route Stop Time Status Admin Acetaminophen 650 MG Q6P PRN 01/01 1600 DCD PO Amlodipine Besylate 5 MG DAILY 01/02 1000 DCD 01/07 PO 0746 Folic Acid 1 MG DAILY 01/02 1000 DCD 01/07 PO 0746 Lisinopril 5 MG DAILY 01/02 1000 DCD 01/07 PO 0746 Lorazepam 1 MG Q12 01/06 1000 DCD 01/07 PO 0926 Lorazepam 0.5 MG DAILY NEEDED PRN 01/05 1700 DCD PO 01/12 1659 Multivitamins 1 TAB DAILY 01/02 1000 DCD 01/07 Therapeutic PO 0745 Nicotine 2 MG Q3P PRN 01/02 1000 DCD 01/07 PO 0745 Nicotine 21 MG DAILY 01/02 1000 DCD 01/07 TOP 0850 Omeprazole 40 MG DAILY AC 01/02 0700 DCD 01/06 PO 0549 Ondansetron HCl 4 MG Q6P PRN 01/01 1615 DCD 01/01 IV 1620 Oxycodone/ 1 TAB Q6P PRN 01/01 1600 DCD Acetaminophen PO Oxycodone/ 2 TAB Q6P PRN 01/01 1600 DCD Acetaminophen PO Thiamine HCl 100 MG DAILY 01/01 1557 DCD 01/07 PO 0745 Trazodone HCl 50 MG AT BEDTIME PRN 01/03 1530 DCD PO Last 24 Hrs of Lab/Sj Results Last 24 Hrs of Labs/Mics: Orders CIWA Score (last 24 hrs): Between 0 and 1 Assessment/Plan Assessment: 46 y/o gentleman with a PMH EtOH dependence, withdrawal seizure, hepatic streatosis, 2 indistinct low-density lesions in the right lobe of the liver visualized on CT abdomen pelvis in 2013, 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 Patient has had multiple previous admissions for alcohol detox most recently November 2016, drinks 1 liter of [place] daily, occasional marijuana use, daily tobacco use at 8 cigarettes per day. ROS: Reports intermittent productive cough with green sputum over the past 2 weeks, recent diagnosis of sinus infection for which he was prescribed Augmentin and prednisone but was noncompliant with. Today he endorses nausea, vomiting, unsteady gait, generalized body tremors. He denies visual/auditory hallucinations, tactile sensation, recent tongue biting/loss of bladder or bowel control, LOC, choking on food/liquids, fever, chills, chest pain, shortness of breath. VS on admission: BP 167/115, HR 106, RR 20, SPO2 94% on RA, T 98.1 Pertinent labs on admission: WBC 5.4, H&H 17.5/50.7, platelets 128K, sodium 146, potassium 4.4, bicarbonate 31, BUN/CR 10/0.8, glucose 105. AST/ALT: 87/60 Total bilirubin: 0.9 Urine tox: EtOH 410 Problem list: 1. Alcohol dependence with detox 2. Hypertensive urgency 3. Thrombocytopenia 4. Elevated bicarbonate 5. Hepatic steatosis 6. Indistinct low-density lesions in R lobe of the liver visualized on CT abd/ pelvis in 2013 7. History of hypertriglyceridemia, hypercholesterolemia (2015) Plan: * PAtient recived his last dose of ativan 1mg today. * Blood pressure well controlled at this time * Thrombocytopenia likely secondary to bone marrow suppression in the context of chronic alcohol abuse. We'll continue DVT prophylaxis with ALPs * Hepatic steatosis: Alcohol abstinence/weight loss recommendations at discharge * Indistinct low-density lesion in right lobe of liver: Previously visualized on CT. Will discuss with radiology on utility of repeat CT vs MRI to better delineate * Nicotine Dependence: Uses nicotine patch and gum. * Abnormal LFT's: High ASCVD score, patient was started on medium dose statin. Follow up as an outpatient. * Patient refused to go to intensive outpatient therapy. * Heart healthy diet * ALPs * Full code Problem List: 1. Alcohol dependence with withdrawal 2. Nicotine dependence 3. Hypertensive urgency 4. Thrombocytopenia 5. Hepatic steatosis 6. Lesion of right lobe of liver Pain Ratin Pain Location: None Pain Goal: Remain pain free Pain Plan: None Tomorrow's Labs & Rationales: None(Discharged) LILLIJAYLEN 01/07/17 0746: Subjective Follow-up For: Alcohol withdrawal Elevated triglycerides Complaints: feels shaky this morning Subjective: Interval history: This morning Mr Montesinos dates that he feels slightly shaky but this is due to his low blood sugar. He denies any headaches, blurred vision, chest pain, shortness of breath, nausea, abdominal pain, issues with balance, fevers or chills. Review of Systems Constitutional: Reports: see HPI. EENTM: Reports: no symptoms. Cardiovascular: Reports: no symptoms. Respiratory: Reports: no symptoms. Gastrointestinal: Reports: no symptoms. Musculoskeletal: Reports: no symptoms. Skin: Reports: no symptoms. Objective Last 24 Hrs of Vital Signs/I&O Vital Signs Date Time Temp Pulse Resp B/P B/P Pulse O2 O2 Flow FiO2 Mean Ox Delivery Rate 01/07 0746 118/72 01/07 0746 118/72 01/07 0657 98.1 91 20 118/72 97 Room Air 01/06 2332 98.1 88 20 124/82 96 01/06 1447 98.3 96 20 120/80 96 Room Air 01/06 1036 81 130/96 01/06 1036 81 130/96 01/06 0800 98.3 88 18 130/86 Intake & Output 01/07 0800 01/07 0000 01/06 1600 Intake Total 0 480 600 Output Total Balance 0 480 600 Intake, Oral 0 480 600 Patient 175 lb Weight Physical Exam General Appearance: Alert, Cooperative, No Acute Distress Skin: No Breakdown HEENT: Mucous Membr. moist/pink Cardiovascular: Regular Rate, Normal S1, Normal S2 Lungs: Clear to Auscultation, Normal Air Movement Abdomen: Normal Bowel Sounds, Soft, No Tenderness Extremities: No Edema, Normal Pulses Current Medications: Current Medications Sig/Beny Start time Last Medication Dose Route Stop Time Status Admin Acetaminophen 650 MG Q6P PRN 01/01 1600 AC PO Amlodipine Besylate 5 MG DAILY 01/02 1000 AC 01/07 PO 0746 Folic Acid 1 MG DAILY 01/02 1000 AC 01/07 PO 0746 Lisinopril 5 MG DAILY 01/02 1000 AC 01/07 PO 0746 Lorazepam 1 MG Q12 01/06 1000 AC 01/06 PO 2135 Lorazepam 0.5 MG DAILY NEEDED PRN 01/05 1700 AC PO 01/12 1659 Lorazepam 1.5 MG Q8 01/04 1400 DC 01/06 PO 0549 Multivitamins 1 TAB DAILY 01/02 1000 AC 01/07 Therapeutic PO 0745 Nicotine 2 MG Q3P PRN 01/02 1000 AC 01/07 PO 0745 Nicotine 21 MG DAILY 01/02 1000 AC 01/06 TOP 1029 Omeprazole 40 MG DAILY AC 01/02 0700 AC 01/06 PO 0549 Ondansetron HCl 4 MG Q6P PRN 01/01 1615 AC 01/01 IV 1620 Oxycodone/ 1 TAB Q6P PRN 01/01 1600 AC Acetaminophen PO Oxycodone/ 2 TAB Q6P PRN 01/01 1600 AC Acetaminophen PO Patient Medication 1 ED .STK-MED ONE 01/06 1404 OH Teaching ED 01/06 1405 Thiamine HCl 100 MG DAILY 01/01 1557 AC 01/07 PO 0745 Trazodone HCl 50 MG AT BEDTIME PRN 01/03 1530 AC PO Orders CIWA Score (last 24 hrs): Between 0 and 1 JUDY ZAMARRIPA MD 01/07/17 1302: Attending MD Review Statement Attending Statement Attending MD Statement: examined this patient, discuss w/resident/PA/COAT JOINER, agreed w/resident/PA/COAT JOINER, reviewed EMR data (avail) Attending Assessment/Plan: 46M PMH withdrawal seizure presenting with signs and symptoms of alcohol withdrawal. Agitated, diaphoretic, tachycardic, has a history of seizure from EtOH, drinks 1L rum nightly. Exam, labs unremarkable. Patient appears like a different person today. He is calm, coherent, not agitated, pleasant, and very interesting to talk to. He has no complaints and feels well. Vitals are stable, labs reviewed. Plan - Stable for discharge home - Continue Nicotine patch and gum - Vitamin supplementation - Continue home medications - Social work and psychiatry evaluation
[2017-01-07 07:46] VITALS: BP 118/72
--- NOTE | 2017-01-07 10:39 | NUR ---
Case discussed with medical team yesterday. Ativan taper continued with expected finish today. I met with Luis Armando yesterday. He remains unable to commit to any level of treatment at this time; he has an outstanding court case and at this time, this is all he is able to focus on. He feels as though once his fate is known re: incarceration,or not, he will be better able to think about treatment. I have provided him with resources for outpatient and IOP level of care, as well as my own business card should he have questions or concerns upon discharge. Anticipate discharge later today. Case discussed with this morning.
--- NOTE | 2017-01-07 14:22 | Discharge Summary ---
Visit Information Visit Dates Admission Date: 01/01/17 Discharge Date: 01/07/17 Hospital Course Course Attending Physician: JUDY ZAMARRIPA MD Primary Care Physician: MARYSOL NASSAR,[facility] Course: 46 y/o gentleman with a PMH EtOH dependence, withdrawal seizure, hepatic streatosis, 2 indistinct low-density lesions in the right lobe of the liver visualized on CT abdomen pelvis in 2013, destructive process of head of left femur(avascular necrosis), Hx of hypoglycemic seizures, tobacco dependence (8 cigarettes per day) who presents today requesting help with alcohol detox. Patient was treated in the hospital for following conditions; Alcohol dependence with detox; Patient was on CIWA protocol and Ativan taper. Recieved his last dose of ativan 1mg today. Patient refused to go to intensive outpatient therapy. Thrombocytopenia: Likely secondary to bone marrow suppression in the context of chronic alcohol abuse. Hepatic steatosis: Alcohol abstinence/weight loss recommendations at discharge Nicotine Dependence: Patient was on nicotine patch and gum. Abnormal LFT's: High ASCVD score, patient was started on medium dose statin. Follow up as an outpatient with PCP. Hypertensive Urgency: Most probabply because of Alcohol withdrawl. Blood pressure was well controlled at the time of discharge. Continue home meds, no acute changes. Allergies: Coded Allergies: No Known Allergies (01/01/17) Significant Procedures: Chest XR; IMPRESSION: No convincing evidence for an acute process. Pertinent Lab Results: Triglycerides 300 Cholesterol 266 LDL Cholesterol 152 Disposition Summary Disposition Principal Diagnosis: Alcohol dependence and withdrawl Additional Diagnosis: Elevated triglycerides Hypertensive Urgency Discharge Disposition: home or self care Discharge Instructions General Discharge Information Code Status: Full Code Patient's Diet: Heart Healthy Patient's Activity: As tolerated Follow-Up Instructions/Appts: Please take all medications as directed. Please follow up with your PCP in the next 1 week Medications at Discharge Discharge Medications: Stop taking the following medications: Lorazepam (Ativan) 0.5 MG TABLET ORAL SEE INSTRUCTIONS Qty = 6 Continue taking these medications: Amlodipine Besylate (Amlodipine Besylate) 5 MG TABLET 5 Milligram ORAL DAILY Qty = 30 Comments: Last Taken: 12/08/16 Time: 0800AM Omeprazole (Omeprazole) 20 MG CAPSULE.DR 40 Milligram ORAL DAILY BEFORE BREAKFAST Qty = 14 Comments: Last Taken: 12/07/16 Time: 6AM Lisinopril (Lisinopril) 5 MG TABLET 5 Milligram ORAL DAILY Qty = 30 Comments: Last Taken: 12/08/16 Time: 08AM Folic Acid (Folic Acid) 1 MG TABLET 1 Milligram ORAL DAILY Qty = 30 Comments: Last Taken: 01/07/17 Time: 08AM Thiamine HCl (Vitamin B-1) 100 MG TABLET 100 Milligram ORAL DAILY Qty = 30 Comments: Last Taken: 01/07/17 Time: 08AM Multivitamin (One Daily Multivitamin) 1 EACH TABLET 1 Tablet ORAL DAILY Qty = 30 Comments: Last Taken: 01/07/17 Time: 08AM Start taking the following new medications: Nicotine (Nicotine Patch) 21 MG/24 HOUR PATCH.TD24 1 Patch On the skin DAILY as needed for Tobacco dependence Qty = 30 No Refills Comments: Last Taken: 01/07/17 Time: 08AM Atorvastatin Calcium (Atorvastatin Calcium) 40 MG TABLET 1 Tablet ORAL DAILY Qty = 30 No Refills Copies To: MARYSOL NASSAR,VENKATESH Attending MD Review Statement Documenting Attending: JUDY ZAMARRIPA MD
== END 2017-01-07 16:00 | DRG 775 ==
LOC: ERH 23:56 → ERHI 01-01 14:24 → 2NB 01-01 14:24 → ENRESERV 01-01 16:42 → ENTRNSPT 01-01 18:05 → 2NB 01-01 18:06 → CMPTRNSPT 01-01 18:49 → 2NB 01-01 18:49 → ENPENDDIS 01-07 13:50 → 2NB 01-07 16:00
PROVIDERS: Emergency Medicine; Internal Medicine; ADMIT Internal Medicine
DX: F10.239 Alcohol dependence with withdrawal, unspecified (principal); K70.0 Alcoholic fatty liver; Y90.8 Blood alcohol level of 240 mg/100 ml or more; M87.9 Osteonecrosis, unspecified; K76.9 Liver disease, unspecified; I16.0 Hypertensive urgency; F17.210 Nicotine dependence, cigarettes, uncomplicated; D69.6 Thrombocytopenia, unspecified; I10 Essential (primary) hypertension; E78.5 Hyperlipidemia, unspecified; K21.9 Gastro-esophageal reflux disease without esophagitis; F32.9 Major depressive disorder, single episode, unspecified; E78.00 Pure hypercholesterolemia, unspecified; E78.2 Mixed hyperlipidemia; E83.42 Hypomagnesemia; E87.6 Hypokalemia
CPT/HCPCS: 1255; 36415; 80307; 82436; 87070; 87389; 93005; 93010; G0480; J2405; J3490; J7060; J7120

== ENCOUNTER 2017-01-17 01:05 | Inpatient (IN) | payer OTHER ==
[~2017-01-17] VITALS: Ht 177.8 cm; Wt 77.1 kg
[2017-01-17] VITALS (8 sets, daily range): BP systolic 104–142; BP diastolic 67–100
[~2017-01-17 01:05] MED LIST changes: +ATORVASTATIN CA40 M1 PO; +NICOTINE PATCH1 EAC3 TOP
--- NOTE | 2017-01-17 01:10 | NUR ---
PER EMS PT SI AND ETOH, PT UPON ED ARRIVAL STATES HE IS NOT SI BUT DOES NOT LIKE HIS ALCOHOLIC LIFE. PT IS PEC
[2017-01-17 01:41] LABS: ABSOLUTE BASOPHIL COUNT 0 /CUMM (0.0-0.2); ABSOLUTE EOSINOPHIL COUNT 0.1 /CUMM (0.0-0.7); ABSOLUTE GRANULOCYTE CT 10.8 /CUMM (1.4-6.5); ABSOLUTE LYMPH COUNT 1.6 /CUMM (1.2-3.4); ABSOLUTE MONOCYTE COUNT 0.5 /CUMM (0.10-0.60); BASOPHIL % 0.1 % (0.0-2.0); EOSINOPHIL % 0.4 % (0-5); GRANULOCYTE % 83.3 % (42.2-75.2); HEMATOCRIT 44.6 % (42-52); MEAN CORPUSCULAR HGB 32.2 PG (27.0-31.0); MEAN CORPUSCULAR HGB CONC 34.8 G/DL (33.0-37.0); MEAN CORPUSCULAR VOLUME 92.5 FL (80.0-94.0); MEAN PLATELET VOLUME 6.8 FL (7.4-10.4); PLATELET COUNT 203 /CUMM (130-400); RBC DISTRIBUTION WIDTH 13.4 % (11.5-14.5); RED BLOOD CELL CT 4.82 /CUMM (4.70-6.10)
[2017-01-17 01:48] LABS: WHITE BLOOD CELL COUNT 12.9 /CUMM (4.8-10.8)
--- NOTE | 2017-01-17 01:56 | NUR ---
URINE TRIO SENT BY THIS RN. THIS RN ASSISTED PT TO RESTROOM VIA AMBULATION
--- NOTE | 2017-01-17 02:04 | NUR ---
PT UNSURE OF LAST DRINK 1ST REPORTS FRIDAY THEN STATES JUST [employer]IL [employer]. PT LABILE WITH INFORMATION CLOTHING ON BACK OF STRETCHER, PLACED IN CLOSET BY THIS RN, VALUABLES COLLECTED AND PLACED IN SAFE.
--- NOTE | 2017-01-17 03:24 | ED PSYCHIATRIC COMPLAINT ---
See Addendum History of Present Illness General Chief Complaint: ETOH/Drug Related Complaint Stated Complaint: BIBA ? ETOH,+SI Source: patient, old records, EMS Exam Limitations: no limitations Vital Signs & Intake/Output Vital Signs & Intake/Output Vital Signs Date Time Temp Pulse Resp B/P B/P Pulse O2 O2 Flow FiO2 Mean Ox Delivery Rate 01/17 930 97.6 107 20 142/82 01/17 0930 97.6 107 20 142/82 95 Room Air Room Air 01/17 0644 96.8 106 20 104/67 95 Room Air 01/17 0640 96.8 106 20 104/67 01/17 0342 97.3 116 16 108/74 95 Room Air 01/17 0337 97.3 116 16 108/74 01/17 0112 83 22 144/78 96 Room Air Allergies Coded Allergies: No Known Allergies (01/01/17) Reconcile Medications Amlodipine Besylate 5 MG TABLET 5 MG PO DAILY HTN Atorvastatin Calcium 40 MG TABLET 1 TAB PO DAILY Hyperlipidemia Folic Acid 1 MG TABLET 1 MG PO DAILY SUPPLEMENT Lisinopril 5 MG TABLET 5 MG PO DAILY BLOOD PRESSURE Multivitamin (One Daily Multivitamin) 1 EACH TABLET 1 TAB PO DAILY SUPPLEMENT Omeprazole 20 MG CAPSULE.DR 40 MG PO DAILY AC GI Thiamine HCl (Vitamin B-1) 100 MG TABLET 100 MG PO DAILY SUPPLEMENT Triage Note: PER EMS PT SI AND ETOH, PT UPON ED ARRIVAL STATES HE IS NOT SI BUT DOES NOT LIKE HIS ALCOHOLIC LIFE. PT IS PEC Triage Nurses Notes Reviewed? yes Onset: Just prior to arrival Duration: constant Timing: recent history Severity: severe Associated Symptoms: anxiety, impaired concentration HPI: Prior to admission EMS called to department for suicidal ideation. Patient denies suicidal ideation admits to alcohol abuse wanting to be sober. He denies fever chills vomiting diarrhea abdominal pain chest pain shortness breath headache dysuria rash bleeding suicidal ideation homicidal ideation hallucination. (NICHOLAS NASSAR,JOHN) Past History Travel History Traveled to [place] past 21 day No Medical History Any Pertinent Medical History? see below for history Neurological: seizure, TIA, STROKE AVASCULAR NECROSIS EENT: NONE Cardiovascular: hypertension, hyperlipidemia, TACHYCARDIA Respiratory: bronchitis Gastrointestinal: GERD Hepatic: FATTY LIVER Renal: NONE Musculoskeletal: L RIB FX Psychiatric: alcohol dependence, depression Endocrine: diabetes Blood Disorders: NONE Cancer(s): NONE CLASSROOM COORDINATOR/Reproductive: NONE History of MRSA: No History of VRE: No History of CDIFF: No Surgical History Surgical History: L HIP Skull surgery Psychosocial History Who do you live with Patient/Self Services at Home None What is your primary language Nicaraguan Tobacco Use: Current Daily Use Daily Tobacco Use Amount/Type: =< 4 Cigarettes daily Family History Family History, If Any: MOTHER (NEUROBLASTOMAALCOHOL ABUSEDM). SISTER (DM). SISTER FATHER (RETROPERITONEAL FIBROSIS). Hx Contributory? No (JOHN PETERSON MD) Review of Systems Review of Systems Constitutional: Reports: no symptoms. EENTM: Reports: no symptoms. Respiratory: Reports: no symptoms. Cardiovascular: Reports: no symptoms. GI: Reports: no symptoms. Genitourinary: Reports: no symptoms. Musculoskeletal: Reports: no symptoms. Skin: Reports: no symptoms. Neurological/Psychological: Reports: see HPI, anxiety, confusion. Hematologic/Endocrine: Reports: no symptoms. Immunologic/Allergic: Reports: no symptoms. All Other Systems: Reviewed and Negative (JOHN PETERSON MD) Physical Exam Physical Exam General Appearance: well developed/nourished, mild distress Head: atraumatic Eyes: Bilateral: PERRL, EOMI. Ears, Nose, Throat: normal pharynx, normal ENT inspection, hearing grossly normal Neck: normal inspection, supple Respiratory: normal breath sounds Cardiovascular: regular rate/rhythm Gastrointestinal: soft, non-tender Extremities: normal range of motion Neurological/Psychiatric: no motor/sensory deficits, agitated, alert, anxious, decator operator II-XII nml as tested Appearance/Memory/Insight: disheveled, impaired insight Behavoir/Eye Contact/Speech: cooperative Thoughts/Hallucinations: no apparent hallucination Skin: intact, normal color, warm/dry SAD PERSONS Done? patient not suicidal (JOHN PETERSON MD) Progress Differential Diagnosis: drug intoxication, drug overdose, drug withdrawal, electrolyte abnormality Plan of Care: Orders Procedure Date/time Status CASE MANAGEMENT CONSULT 01/17 0933 Active CIWA 01/17 0128 Active URINE DRUG SCREEN FOR ER ONLY 01/17 011 Complete LIPASE 01/17 011 Complete ETHANOL 01/17 011 Complete COMPREHENSIVE METABOLIC PANEL 01/17 011 Complete CBC WITHOUT DIFFERENTIAL 01/17 113 Complete AMYLASE 01/17 113 Complete Current Medications Sig/Beny Start time Last Medication Dose Stop Time Status Admin Ondansetron HCl 4 MG ONCE ONE 01/17 0330 CAN (Zofran) 01/17 0331 Laboratory Tests 01/17/17 0154: Urine Opiates Screen < 100.00, Methadone Screen < 40, Barbiturate Screen < 60, Ur Phencyclidine Scrn < 6.00, Amphetamines Screen 136, U Benzodiazepines Scrn 102, Urine Cocaine Screen < 50, Urine Cannabis Screen < 5.00 01/17/17 0130: Anion Gap 22 H, Estimated GFR 60, BUN/Creatinine Ratio 11.5, Glucose 96, Calcium 9.1, Total Bilirubin 0.9, AST 52, ALT 50, Alkaline Phosphatase 74, Total Protein 7.0, Albumin 4.5, Globulin 2.5, Albumin/Globulin Ratio 1.8, Amylase 68, Lipase 187, CBC w Diff NO MAN DIFF REQ, RBC 4.82, MCV 92.5, MCH 32.2 H, RDW 13.4, MPV 6.8 L, Gran % 83.3 H, Lymphocytes % 12.4 L, Monocytes % 3.8, Eosinophils % 0.4, Basophils % 0.1, Absolute Granulocytes 10.8 H, Absolute Lymphocytes 1.6, Absolute Monocytes 0.5, Absolute Eosinophils 0.1, Absolute Basophils 0, PUBS MCHC 34.8, Serum Alcohol 219.0 Hand-Off Endorsed To: CRYSTAL GERARD DO Endorsed Time: 0700 Pending: other (CIWA, sobriety) (NICHOLAS NASSAR,JOHN) Departure Departure Disposition: STILL A PATIENT Condition: Stable Clinical Impression Primary Impression: Alcohol intoxication delirium Referrals: VENKATESH GREGG MD (PCP/Family) Departure Forms: General Discharge Information (JOHN PETERSON MD) Departure Comments 01/17/17 10:38 am The patient was signed out to me by Dr. Peterson at 7 AM. Family he is tremulous and in significant alcohol withdrawal. He denies suicidal ideation. He was evaluated by case management and licensed social worker. Plan is to get state approval to admit him for alcohol detox he was given IV and by mouth Ativan. (CRYSTAL GERARD DO)
--- NOTE | 2017-01-17 03:37 | NUR ---
PATIENT REPORTS +NAUSEA, SPITTING INTO BASIN AT BEDSIDE. DRINKING WATER, AWARE TO REMAIN NPO WHILE NAUSEOUS. PATIENT MEDICATED W/ ZOFRAN PER EMAR. TOLERATED WELL.
--- NOTE | 2017-01-17 06:46 | NUR ---
PT EASILY AROUSABLE, VSS, PT INFORMED THAT BREAKFAST WILL ARRIVE SHORTLY 0700. PT OFFERS NO COMPLAINTS AT THIS TIME. WILL CONTINUE TO MONITOR. SITTER IN PLACE FOR SAFETY.
--- NOTE | 2017-01-17 07:30 | NUR ---
PT RESTING COMFORTABLY, EASILY AROUSABLE THIS AM, MORNING ACCUCHECK: 76, NO COMPLAINTS AT THIS TIME.
--- NOTE | 2017-01-17 09:37 | NUR ---
PT C/O ANXIETY, HEADACHE, AND TREMORS, DR GERARD AWARE.
--- NOTE | 2017-01-17 10:09 | NUR ---
DR GERARD TO BEDSIDE FOR RE-EVAL. MED ORDERED WITH ATIVAN 2MG PO AND ATIVAN 2MG IV, TOLERATED WELL. PT IS CALM AND COOPERATIVE, HAND TREMORS NOTED, AND PT C/O ANXIETY.
--- NOTE | 2017-01-17 10:50 | NUR ---
01/17 PT REQUESTING ETOH DETOX- [facility] PENDING FOR [facility]. CASE MGMT WILL CONTINUE TO FOLLOW.
--- NOTE | 2017-01-17 11:40 | NUR ---
[facility] AUTH STILL PENDING. CASE MGMT WILL CONTINUE TO FOLLOW.
--- NOTE | 2017-01-17 13:11 | NUR ---
ct [facility] auth pending- case mgmt will continue to follow.
--- NOTE | 2017-01-17 13:15 | NUR ---
MED WITH MULTIVITAMIN 1 TAB PO, THIAMINE 100MG PO, AND FOLIC ACID 1MG PO, TOLERATED VERY WELL. PT SLEEPING COMFORTABLY, BUT WAS EASILY AROUSABLE VERBALLY. CALM AND COOPERATIVE, NO COMPLAINTS AT THIS TIME.
--- NOTE | 2017-01-17 13:49 | NUR ---
PT TO BE ADMITTED FOR MEDICAL DETOX PER CONTINUING CARE JEAN-PIERRE. PT RESTING COMFORTALBY AT THIS TIME, EASILY AROUSABLE, NO COMPLAINTS AT THIS TIME, UPDATED WITH POC FOR ADMISSION.
--- NOTE | 2017-01-17 13:52 | NUR ---
01/17 CASE MGMT- [facility] AUTH APPROVED- AUTH # [id number] FOR 6 [address]YS [address]NTIL 01/22. DR GERARD AWARE, ADMITTING AWARE, YANCY RN AWARE, NADER MATTHEWS CLERK AWARE.
--- NOTE | 2017-01-17 14:45 | History & Physical ---
JAYLEN REEDER 01/17/17 1445: General Information and HPI MD Statement: I have seen and personally examined PATRICIO MONTESINOS and documented this H&P. The patient is a 46 year old M who presented with a patient stated chief complaint of [patient requests alcohol detox. Having a hard-time]. Source of Information: patient, old records Exam Limitations: clinical condition History of Present Illness: Mr Montesinos is a 46 y/o gentleman with a PMH EtOH dependence, withdrawal seizure, hepatic streatosis, 2 indistinct low-density lesions in the right lobe of the liver visualized on CT abdomen pelvis in 2013, destructive process of head of left femur ?? Avascular necrosis, tobacco dependence (8 cigarettes per day) last seen at [facility] earlier this month for alcohol detox who was BIBA for alcohol detox. Information obtained from EMS indicates ?? SI but on arrival the patient denies being suicidal. He does express frustration with his difficulty abstaining from alcohol. Since his last discharge she reports drinking regularly but unclear as to how much or when his last drink was. ROS: Patient reports intermittent episodes of nausea, nonbloody vomiting, feeling anxious, intermittent headache, tremors. Allergies/Medications Allergies: Coded Allergies: No Known Allergies (01/01/17) Home Med list Amlodipine Besylate 5 MG TABLET 5 MG PO DAILY HTN Atorvastatin Calcium 40 MG TABLET 1 TAB PO DAILY Hyperlipidemia Folic Acid 1 MG TABLET 1 MG PO DAILY SUPPLEMENT Lisinopril 5 MG TABLET 5 MG PO DAILY BLOOD PRESSURE Multivitamin (One Daily Multivitamin) 1 EACH TABLET 1 TAB PO DAILY SUPPLEMENT Omeprazole 20 MG CAPSULE.DR 40 MG PO DAILY AC GI Thiamine HCl (Vitamin B-1) 100 MG TABLET 100 MG PO DAILY SUPPLEMENT Past History Travel History Traveled to [place] past 21 day No Medical History Neurological: seizure, TIA, STROKE AVASCULAR NECROSIS EENT: NONE Cardiovascular: hypertension, hyperlipidemia, TACHYCARDIA Respiratory: bronchitis Gastrointestinal: GERD Hepatic: FATTY LIVER Renal: NONE Musculoskeletal: L RIB FX Psychiatric: alcohol dependence, depression Endocrine: diabetes Blood Disorders: NONE Cancer(s): NONE DEBT COUNSELOR/Reproductive: NONE History of MRSA: No History of VRE: No History of CDIFF: No Surgical History Surgical History: L HIP Skull surgery Past Family/Social History Family History Relations & Conditions if any MOTHER (NEUROBLASTOMAALCOHOL ABUSEDM). SISTER (DM). SISTER FATHER (RETROPERITONEAL FIBROSIS). Psychosocial History Who Do You Live With? self Services at Home: None Functional Ability ADLs Independent: dressing, eating, toileting, bathing. Ambulation: independent IADLs Independent: shopping, housework, finances, food prep, telephone, transportation , medication admin. Review of Systems Review of Systems Constitutional: Reports: see HPI. EENTM: Reports: see HPI. Cardiovascular: Reports: see HPI. Respiratory: Reports: no symptoms. GI: Reports: see HPI. Genitourinary: Reports: no symptoms. Musculoskeletal: Reports: no symptoms. Neurological/Psychological: Reports: see HPI. Exam & Diagnostic Data Last 24 Hrs of Vital Signs/I&O Vital Signs Date Time Temp Pulse Resp B/P B/P Pulse O2 O2 Flow FiO2 Mean Ox Delivery Rate 01/17 1419 96.6 101 20 113/70 01/17 1419 96.6 101 20 113/70 96 Room Air Room Air 01/17 1319 97.0 92 18 134/81 01/17 1317 97.0 92 18 134/81 96 Room Air Room Air 01/17 0930 97.6 107 20 142/82 01/17 0930 97.6 107 20 142/82 95 Room Air Room Air 01/17 0644 96.8 106 20 104/67 95 Room Air 01/17 0640 96.8 106 20 104/67 01/17 0342 97.3 116 16 108/74 95 Room Air 01/17 0337 97.3 116 16 108/74 01/17 0112 83 22 144/78 96 Room Air Intake & Output 01/17 1600 01/17 0800 01/17 0000 Intake Total Output Total Balance Patient 175 lb Weight Physical Exam General Appearance No Acute Distress, Patient is resting comfortably in no acute distress. Easily arousable to verbal commands Skin No Breakdown, No Significant Lesion Skin Temp/Moisture Exam: Warm/Dry HEENT EOMI, Mucous Membr. moist/pink Cardiovascular Regular Rate, Normal S1, Normal S2 Lungs Normal Air Movement, Dimnished breath soudns in the basilar regions bilaterally Abdomen Normal Bowel Sounds, Soft, Mild tenderness to palpation of the epigastric region Extremities No Edema, Normal Pulses Vascular Normal Pulses Last 24 Hrs of Labs/Sj: Laboratory Tests 01/17/17 0154: Urine Opiates Screen < 100.00, Methadone Screen < 40, Barbiturate Screen < 60, Ur Phencyclidine Scrn < 6.00, Amphetamines Screen 136, U Benzodiazepines Scrn 102, Urine Cocaine Screen < 50, Urine Cannabis Screen < 5.00 01/17/17 0130: Anion Gap 22 H, Estimated GFR 60, BUN/Creatinine Ratio 11.5, Glucose 96, Calcium 9.1, Total Bilirubin 0.9, AST 52, ALT 50, Alkaline Phosphatase 74, Total Protein 7.0, Albumin 4.5, Globulin 2.5, Albumin/Globulin Ratio 1.8, Amylase 68, Lipase 187, CBC w Diff NO MAN DIFF REQ, RBC 4.82, MCV 92.5, MCH 32.2 H, RDW 13.4, MPV 6.8 L, Gran % 83.3 H, Lymphocytes % 12.4 L, Monocytes % 3.8, Eosinophils % 0.4, Basophils % 0.1, Absolute Granulocytes 10.8 H, Absolute Lymphocytes 1.6, Absolute Monocytes 0.5, Absolute Eosinophils 0.1, Absolute Basophils 0, PUBS MCHC 34.8, Serum Alcohol 219.0 Assessment/Plan Assessment: 46 y/o gentleman with a PMH EtOH dependence, withdrawal seizure, hepatic streatosis, 2 indistinct low-density lesions in the right lobe of the liver visualized on CT abdomen pelvis in 2013, destructive process of head of left femur ?? Avascular necrosis, tobacco dependence (8 cigarettes per day) last seen at [facility] earlier this month for alcohol detox who was BIBA for alcohol detox. VS and admission: BP 144/78, HR 116, RR 22, SPO2 96% on RA, T 97.3 Labs: WBC 12.9, H&H 15.5/44.6, platelets 203K, sodium 134, potassium 3.4, chloride 97, bicarbonate 20, BUN/CR 50/1.3, glucose 96 EtOH: < 219 Problem list: 1. Alcohol dependence with history of withdrawal seizures 2. Acute kidney injury 3. SIRS criteria: CBC 12.9, HR 116, RR 22 (3/4 present) 4. Tobacco dependence 5. Indistinct low-density lesions in R lobe of the liver visualized on CT abd/ pelvis in 2013 Plan: * Admit to general medicine for alcohol withdrawal * We'll start the patient on lorazepam 2 mg PO Q6, Ativan per CIWA banana bag 1 * Aspiration precautions, incentive spirometry * Baseline creatinine of 0.7 up to 1.3 on this admission. Likely secondary to dehydration we'll start the patient on D5NS @ 100/hr X1. Recheck renal function in the a.m. prior to starting CRISTI inhibitor * SIRS criteria with 3/4 (CBC 12.9, HR 116, RR 22): At this time no evidence of infectious source. If patient does spike a fever would obtain blood cultures and send chest x-ray * Previous admission patient was found to have some leukocytopenia. Follow-up platelet count in the morning and if <100K, discontinue heparin for DVT prophylaxis * A.m. team: Obtain psychiatry and social work consult * At this time the patient denies any suicidal ideation. If any concern arises, obtain one-to-one sitter * Continue amlodipine 5 mg daily for blood pressure control * Atorvastatin 40 mg daily for hyperlipidemia. If LFTs are elevated, consider temporary holding statin * Regular diet * Nicotine patch 14mg starting in AM * History of Indistinct low-density lesions in R lobe of the liver visualized on CT abd/pelvis in 2013. Pt hAs been non complaint with follow up but urged on the importance of follow up imaging. Will reassess once patient is sober * Full code As Ranked By This Provider Problem List: 1. Alcohol dependency 2. Alcohol abuse 3. Hepatic steatosis 4. VIRAJ (acute kidney injury) 5. Lesion of right lobe of liver Core Measures/Miscellaneous Acute Coronary Syndrome ACS Diagnosis: No Cerebrovascular Accident CVA/TIA Diagnosis: No Congestive Heart Failure CHF Diagnosis: No VTE (View Protocol) VTE Risk Factors: Age > 40 [address] [facility] VTE prophylaxis d/t: No contraindications No VTE Pharm Prophylaxis d/t: No contraindications VTE Diagnosis: No VTE Type: NONE VTE Confirmed by (Test): NONE Sepsis (View Protocol) Severe Sepsis Present: No Septic Shock Septic Shock Present: No Miscellaneous Documentation Attending Case Discussed With: JUDY ZAMARRIPA MD Primary Care Physician: VENKATESH GREGG MD Patient sees these Specialists NA Level of Patient Care: General Medicine Resident Review Statement Resident Statement: examined this patient, discussed with manager of internal audit, agreed with manager of internal audit, reviewed EMR data (avail), discussed with nursing JUDY ZAMARRIPA MD 01/17/17 1875: Attending MD Review Statement Attending Statement Attending MD Statement: examined this patient, discuss w/resident/PA/SUPERINTENDENT CONTAINER TERMINAL, agreed w/resident/PA/SUPERINTENDENT CONTAINER TERMINAL, reviewed EMR data (avail)
--- NOTE | 2017-01-17 16:24 | NUR ---
PT HAS BED 224-2
--- NOTE | 2017-01-17 18:01 | NUR ---
MEDICATED WITH ATIVAN 2MG PER EMAR, PRILOSEC AND BANANA BAG STARTED. PT REFUSING HEPARIN INJ
--- NOTE | 2017-01-17 18:58 | NUR ---
ATTEMPTED TO GIVE REPORT TO FLOOR AND SUPERVISORY CLERK UNAWARE OF ADMISSION. WILL HAVE LICENSED MASS REAL ESTATE APPRAISER HUANG CALL BACK
--- NOTE | 2017-01-17 20:08 | NUR ---
PT ACCIDENTLY RIPPED OUT IV. BLEEDING CONTROLLED
--- NOTE | 2017-01-17 20:40 | NUR ---
ADMISSION NOTE: PT ARRIVED TO FLOOR VIA STRETCHER ACCOMPANIED BY DISTRIBUTION, A&OX3, RA, DENIED PAIN, IV # 20 RAC STARTED IN ER ON 01/17/17, BANANA BAG, SEIZURE PRECAUTION IN ROOM, ALPS, FALL PRECAUTIONS IN PLACE. ORIENTATED TO ROOM 224-2, CALL LIGHT WITHIN REACH, HAD ONE BAG OF BELONGINGS PLACED UNDER TV.
[2017-01-18] VITALS (12 sets, daily range): BP systolic 110–136; BP diastolic 10–108
--- NOTE | 2017-01-18 06:31 | PN- Housestaff ---
See Addendum Subjective Follow-up For: Alcohol Detox Subjective: Patient states he feels "crappy" this morning. He was unable to sleep last night because of hallucinations and vivid dreams. He also reports tremors and Nausea. Review of Systems Constitutional: Reports: no symptoms. EENTM: Reports: no symptoms. Cardiovascular: Reports: no symptoms. Respiratory: Reports: no symptoms. Gastrointestinal: Denies: nausea. Genitourinary: Reports: no symptoms. Musculoskeletal: Reports: no symptoms. Skin: Reports: no symptoms. Neurological/Psychological: Denies: anxiety, tremors. Hematologic/Endocrine: Reports: no symptoms. Immunologic/Allergic: Reports: no symptoms. Objective Last 24 Hrs of Vital Signs/I&O Vital Signs Date Time Temp Pulse Resp B/P B/P Pulse O2 O2 Flow FiO2 Mean Ox Delivery Rate 01/18 0658 98.0 90 18 120/80 95 Room Air 01/18 0600 98.0 90 18 120/80 01/18 0200 98.5 87 18 120/66 01/18 0158 98.5 87 18 120/66 92 Room Air 01/17 2236 99.4 95 18 110/88 96 Room Air 01/17 2200 99.4 95 20 110/88 01/17 2020 98.6 108 20 126/100 95 Room Air 01/17 1840 98.1 104 16 128/70 95 Room Air 01/17 1419 96.6 101 20 113/70 01/17 1419 96.6 101 20 113/70 96 Room Air Room Air 01/17 1319 97.0 92 18 134/81 01/17 1317 97.0 92 18 134/81 96 Room Air Room Air 01/17 0930 97.6 107 20 142/82 01/17 0930 97.6 107 20 142/82 95 Room Air Room Air Intake & Output 01/18 0800 01/18 0000 01/17 1600 Intake Total 1280 540 Output Total Balance 1280 540 Intake, IV 800 300 Intake, Oral 480 240 Patient 170 lb Weight Weight Reported by Patient Measurement Method Physical Exam General Appearance: Alert, Oriented X3, Cooperative Skin: No Rashes, No Breakdown HEENT: Atraumatic, PERRLA, EOMI, Mucous Membr. moist/pink Neck: Supple, No JVD, No thryomegaly Lymphatic: Cervical nl Cardiovascular: Regular Rate, Normal S1, Normal S2, No Murmurs Lungs: Clear to Auscultation, Normal Air Movement Abdomen: Normal Bowel Sounds, Soft, No Tenderness Neurological: Normal Speech, Strength at 5/5 X4 Ext, Normal Tone, Sensation Intact Extremities: No Clubbing, No Cyanosis, No Edema Current Medications: Current Medications Sig/Beny Start time Last Medication Dose Route Stop Time Status Admin Amlodipine Besylate 5 MG DAILY 01/18 1000 AC PO Atorvastatin Calcium 40 MG 1700 01/18 1700 AC PO Cyanocobalamin/ 1 BAG ONCE ONE 01/17 1530 DC 01/17 Thiamine/Pyridoxine IV 01/17 2329 1806 Sodium Chloride 1,000 ML Folic Acid 1 MG DAILY 01/18 1000 AC PO Folic Acid 0 .STK-MED ONE 01/17 1317 DC PO Folic Acid 1 MG DAILY 01/17 1215 DC 01/17 PO 01/19 1001 1315 Heparin Sodium 0 .STK-MED ONE 01/17 1804 DC (Porcine) .ROUTE Heparin Sodium 5,000 UNIT Q8 01/17 1524 AC (Porcine) SC Ibuprofen 600 MG Q6P PRN 01/17 1530 AC PO Lorazepam 0.5 MG ONCE 01/22 0000 DC PO 01/22 0001 Lorazepam 0.5 MG Q6H 01/21 0000 DC PO 01/21 1801 Lorazepam 0.5 MG ONCE ONE 01/20 1800 DC PO 01/20 1801 Lorazepam 1 MG Q6H 01/20 0000 DC PO 01/20 1201 Lorazepam 1.5 MG Q12H 01/19 0600 DC PO 01/19 1801 Lorazepam 1 MG Q12H 01/19 0000 DC PO 01/19 1201 Lorazepam 1.5 MG Q6 01/18 0600 CAN PO 01/18 1801 Lorazepam 0 .STK-MED ONE 01/17 1804 DC PO Lorazepam 2 MG Q6 01/17 1800 AC 01/18 PO 0505 Lorazepam 0 Q1P PRN 01/17 1530 AC IV Lorazepam 2 MG ONCE ONE 01/17 1215 DC PO 01/17 1216 Lorazepam 2 MG Q6 01/17 1215 DC 01/17 PO 01/18 0001 2227 Lorazepam 2 MG Q2P PRN 01/17 1215 DC PO Lorazepam 1 MG Q2P PRN 01/17 1215 DC PO Lorazepam 0 .STK-MED ONE 01/17 1007 DC PO Lorazepam 0 .STK-MED ONE 01/17 1007 DC .ROUTE Lorazepam 2 MG ONE ONE 01/17 0945 DC 01/17 IV 01/17 0946 1009 Lorazepam 2 MG ONCE ONE 01/17 0945 DC 01/17 PO 01/17 0946 1009 Multivitamins 0 .STK-MED ONE 01/17 1317 DC PO Multivitamins 1 TAB DAILY 01/17 1215 AC 01/17 PO 1315 Multivitamins 1 TAB DAILY 01/18 1000 AC Therapeutic PO Nicotine 14 MG DAILY 01/18 1000 AC TOP Omeprazole 0 .STK-MED ONE 01/17 1805 DC PO Omeprazole 40 MG DAILY AC 01/17 1533 AC 01/18 PO 0505 Oxycodone/ 1 TAB Q6P PRN 01/17 1530 AC Acetaminophen PO Oxycodone/ 2 TAB Q6P PRN 01/17 1530 AC Acetaminophen PO Sodium Chloride 1,000 ML Q10H 01/17 2200 AC 01/18 IV 01/18 0759 0409 Thiamine HCl 100 MG DAILY 01/18 1000 AC PO Thiamine HCl 0 .STK-MED ONE 01/17 1317 DC PO Thiamine HCl 100 MG DAILY 01/17 1215 DC 01/17 PO 01/19 1001 1315 Last 24 Hrs of Lab/Sj Results Last 24 Hrs of Labs/Mics: Laboratory Tests 01/18/17 0610: Sodium Pending, Potassium Pending, Chloride Pending, Carbon Dioxide Pending, Anion Gap Pending, BUN Pending, Creatinine Pending, BUN/Creatinine Ratio Pending , Phosphorus Pending, Magnesium Pending, Total Bilirubin Pending, Direct Bilirubin Pending, AST Pending, ALT Pending, Alkaline Phosphatase Pending, Total Protein Pending, Albumin Pending, CBC w Diff Pending, WBC Pending, RBC Pending, Hgb Pending, Hct Pending, MCV Pending, MCH Pending, RDW Pending, Plt Count Pending, MPV Pending, PUBS MCHC Pending Assessment/Plan Assessment: Mr Montesinos is a 46 y/o gentleman with a PMH EtOH dependence, withdrawal seizure, hepatic streatosis, 2 indistinct low-density lesions in the right lobe of the liver visualized on CT abdomen pelvis in 2013, destructive process of head of left femur ?? Avascular necrosis, tobacco dependence (8 cigarettes per day) last seen at [facility] earlier this month for alcohol detox who was BIBA for alcohol detox. Admit to general medicine for alcohol withdrawal * We'll start the patient on lorazepam 2 mg PO Q6, Ativan per CIWA. CIWA for last 24 hours range between 0-15. He did not recieve any PRN Ativan Overnight. * banana bag 1 * Aspiration precautions, incentive spirometry * Baseline creatinine of 0.7 up to 1.3 on this admission. Likely secondary to dehydration we'll start the patient on D5NS @ 100/hr X1. Recheck renal function today prior to starting CRISTI inhibitor. * SIRS criteria with 3/4 (CBC 12.9, HR 116, RR 22): At this time no evidence of infectious source. If patient does spike a fever would obtain blood cultures and send chest x-ray * Previous admission patient was found to have some leukocytopenia. Follow-up platelet count in the morning and if <100K, discontinue heparin for DVT prophylaxis * A.m. team: Obtain psychiatry and social work consult * At this time the patient denies any suicidal ideation. If any concern arises, obtain one-to-one sitter * Continue amlodipine 5 mg daily for blood pressure control * Atorvastatin 40 mg daily for hyperlipidemia. If LFTs are elevated, consider temporary holding statin * Regular diet * Nicotine patch 14mg starting in AM * History of Indistinct low-density lesions in R lobe of the liver visualized on CT abd/pelvis in 2013. Pt hAs been non complaint with follow up but urged on the importance of follow up imaging. Will reassess once patient is sober. * Full code Problem List: 1. Alcohol dependence with withdrawal 2. Lesion of right lobe of liver 3. VIRAJ (acute kidney injury) 4. Thrombocytopenia 5. Hypertension Pain Ratin Pain Location: None Pain Goal: Remain pain free Pain Plan: None Tomorrow's Labs & Rationales: CBC(Thrombocytopenia,Leukocytosis), BEP(VIRAJ)
[2017-01-18 07:45] LABS: ABSOLUTE BASOPHIL COUNT 0 /CUMM (0.0-0.2); ABSOLUTE EOSINOPHIL COUNT 0.1 /CUMM (0.0-0.7); ABSOLUTE GRANULOCYTE CT 4.4 /CUMM (1.4-6.5); ABSOLUTE LYMPH COUNT 1.6 /CUMM (1.2-3.4); ABSOLUTE MONOCYTE COUNT 0.3 /CUMM (0.10-0.60); BASOPHIL % 0.5 % (0.0-2.0); EOSINOPHIL % 1.6 % (0-5); GRANULOCYTE % 68.2 % (42.2-75.2); HEMATOCRIT 42.2 % (42-52); MEAN CORPUSCULAR HGB 31.9 PG (27.0-31.0); MEAN CORPUSCULAR HGB CONC 34.1 G/DL (33.0-37.0); MEAN CORPUSCULAR VOLUME 93.6 FL (80.0-94.0); MEAN PLATELET VOLUME 7.2 FL (7.4-10.4); RBC DISTRIBUTION WIDTH 13.6 % (11.5-14.5); RED BLOOD CELL CT 4.51 /CUMM (4.70-6.10); WHITE BLOOD CELL COUNT 6.5 /CUMM (4.8-10.8)
[2017-01-18 09:29] LABS: PLATELET COUNT 125 /CUMM (130-400)
--- NOTE | 2017-01-18 12:36 | Admission Certification ---
Admission Certification Certification Statement - As attending physician, I certify that at the time of - admission, based on clinical presentation, severity of - symptoms, need for further diagnostic testing and - therapeutic interventions, and risk of adverse outcomes - without in-hospital treatment, in my clinical assessment, - this patient requires an acute hospital stay for a minimum - of two nights or longer. I have also considered psychsocial - factors such as support system, advanced age, financial - issues, cognitive issues, and failed out-patient treatments, - past re-admission history, safety of patient, and lack of - compliance as applicable. Specific rationale supporting this admission is: Alcohol withdrawal with recent history of withdrawl seizure
[2017-01-19] VITALS (11 sets, daily range): BP systolic 110–126; BP diastolic 60–88
[2017-01-19 07:49] LABS: ABSOLUTE BASOPHIL COUNT 0 /CUMM (0.0-0.2); ABSOLUTE EOSINOPHIL COUNT 0.1 /CUMM (0.0-0.7); ABSOLUTE GRANULOCYTE CT 4.1 /CUMM (1.4-6.5); ABSOLUTE LYMPH COUNT 1.9 /CUMM (1.2-3.4); ABSOLUTE MONOCYTE COUNT 0.4 /CUMM (0.10-0.60); BASOPHIL % 0.4 % (0.0-2.0); EOSINOPHIL % 1.7 % (0-5); GRANULOCYTE % 62.7 % (42.2-75.2); HEMATOCRIT 40.7 % (42-52); MEAN CORPUSCULAR HGB 32.2 PG (27.0-31.0); MEAN CORPUSCULAR HGB CONC 34.2 G/DL (33.0-37.0); MEAN CORPUSCULAR VOLUME 94.2 FL (80.0-94.0); MEAN PLATELET VOLUME 7.2 FL (7.4-10.4); PLATELET COUNT 117 /CUMM (130-400); RBC DISTRIBUTION WIDTH 13.9 % (11.5-14.5); RED BLOOD CELL CT 4.32 /CUMM (4.70-6.10); WHITE BLOOD CELL COUNT 6.5 /CUMM (4.8-10.8)
--- NOTE | 2017-01-19 10:09 | PN- Housestaff ---
See Addendum Subjective Follow-up For: EtOH Subjective: No overnight events. Didn't sleep well. Doesn't feel great, having some nausea and back pain that started two days ago. He's hadf back pain like this in the past. Described as dull nonradiating, lower back. Deosn't remember hurting it. No other complaints. Review of Systems Constitutional: Reports: see HPI. EENTM: Reports: no symptoms. Cardiovascular: Reports: no symptoms. Respiratory: Reports: no symptoms. Gastrointestinal: Reports: no symptoms. Genitourinary: Reports: no symptoms. Musculoskeletal: Reports: see HPI. Skin: Reports: no symptoms. Neurological/Psychological: Reports: no symptoms. Hematologic/Endocrine: Reports: no symptoms. Immunologic/Allergic: Reports: no symptoms. Objective Last 24 Hrs of Vital Signs/I&O Vital Signs Date Time Temp Pulse Resp B/P B/P Pulse O2 O2 Flow FiO2 Mean Ox Delivery Rate 01/19 0929 98.0 68 20 120/60 98 Room Air 01/19 0410 98.1 89 18 110/80 96 Room Air 01/19 0400 98.1 89 18 110/80 01/19 0009 98.0 90 18 110/80 96 Room Air 01/19 0000 98.0 90 18 110/80 01/18 2200 98.3 88 20 128/108 01/18 2200 98.3 88 20 128/108 97 Room Air 01/18 2000 99.0 95 20 110/10 01/18 1948 99.0 95 20 110/100 01/18 1920 99.0 95 20 110/100 96 Room Air 01/18 1635 98.5 90 18 112/90 96 Room Air 01/18 1400 97.8 86 18 130/70 01/18 1400 97.8 86 18 130/70 01/18 1336 Room Air Room Air 01/18 1250 97.8 98 22 136/72 Intake & Output 01/19 1600 01/19 0800 01/19 0000 Intake Total 500 1280 Output Total Balance 500 1280 Intake, IV 20 800 Intake, Oral 480 480 Physical Exam General Appearance: Alert, Oriented X3, Cooperative, No Acute Distress Cardiovascular: Regular Rate, Normal S1, Normal S2 Lungs: Crackles bilaterally Abdomen: Normal Bowel Sounds, Soft, No Tenderness, No Masses Neurological: Normal Speech, Strength at 5/5 X4 Ext Extremities: No Edema Other Physical Findings: Lower back hanger to palpation paraspinally. Current Medications: Current Medications Sig/Beny Start time Last Medication Dose Route Stop Time Status Admin Amlodipine Besylate 5 MG DAILY 01/18 1000 AC 01/18 PO 0938 Atorvastatin Calcium 40 MG 1700 01/18 1700 AC 01/18 PO 1706 Folic Acid 1 MG DAILY 01/18 1000 AC 01/18 PO 0938 Heparin Sodium 5,000 UNIT Q8 01/17 1524 AC (Porcine) SC Ibuprofen 600 MG Q6P PRN 01/17 1530 AC PO Lisinopril 5 MG DAILY 01/18 1813 AC 01/18 PO 1948 Lorazepam 0.5 MG ONCE 01/22 0000 DC PO 01/22 0001 Lorazepam 0.5 MG Q6H 01/21 0000 DC PO 01/21 1801 Lorazepam 0.5 MG ONCE ONE 01/20 1800 DC PO 01/20 1801 Lorazepam 1 MG Q6H 01/20 0000 DC PO 01/20 1201 Lorazepam 1.5 MG Q12H 01/19 0600 DC PO 01/19 1801 Lorazepam 1 MG Q12H 01/19 0000 DC PO 01/19 1201 Lorazepam 2 MG Q6 01/17 1800 AC 01/19 PO 0504 Lorazepam 0 Q1P PRN 01/17 1530 AC 01/18 IV 2206 Multivitamins 1 TAB DAILY 01/17 1215 AC 01/18 PO 0937 Multivitamins 1 TAB DAILY 01/18 1000 AC 01/18 Therapeutic PO 0937 Nicotine 2 MG DAILY PRN 01/18 1830 AC PO Nicotine 14 MG DAILY 01/18 1000 AC TOP Omeprazole 40 MG DAILY AC 01/17 1533 AC 01/19 PO 0504 Oxycodone/ 1 TAB Q6P PRN 01/17 1530 AC Acetaminophen PO Oxycodone/ 2 TAB Q6P PRN 01/17 1530 AC 01/19 Acetaminophen PO 0409 Thiamine HCl 100 MG DAILY 01/18 1000 AC 01/18 PO 0937 Last 24 Hrs of Lab/Sj Results Last 24 Hrs of Labs/Mics: Laboratory Tests 01/19/17 0620: Anion Gap 10, Estimated GFR > 60, BUN/Creatinine Ratio 11.4, CBC w Diff NO MAN DIFF REQ, RBC 4.32 L, MCV 94.2 H, MCH 32.2 H, RDW 13.9, MPV 7.2 L, Gran % 62.7, Lymphocytes % 28.9, Monocytes % 6.3, Eosinophils % 1.7, Basophils % 0.4, Absolute Granulocytes 4.1, Absolute Lymphocytes 1.9, Absolute Monocytes 0.4, Absolute Eosinophils 0.1, Absolute Basophils 0, PUBS MCHC 34.2 Assessment/Plan Assessment: Mr Montesinos is a 46 y/o gentleman with a PMH EtOH dependence, withdrawal seizure, hepatic streatosis, 2 indistinct low-density lesions in the right lobe of the liver visualized on CT abdomen pelvis in 2013, destructive process of head of left femur ?? Avascular necrosis, tobacco dependence (8 cigarettes per day) last seen at [facility] earlier this month for alcohol detox who was BIBA for alcohol detox. Admit to general medicine for alcohol withdrawal: CIWA 7 this morning, 24 hour highest 17 * lorazepam 2 mg PO Q6, Ativan per CIWA. * Aspiration precautions, incentive spirometry * Creatinine back down to 0.7 today * A.m. team: Obtain psychiatry and social work consult * At this time the patient denies any suicidal ideation. If any concern arises, obtain one-to-one sitter * Continue amlodipine 5 mg daily for blood pressure control * Atorvastatin 40 mg daily for hyperlipidemia. If LFTs are elevated, consider temporary holding statin * Regular diet * Nicotine patch 14mg starting in AM * History of Indistinct low-density lesions in R lobe of the liver visualized on CT abd/pelvis in 2013. Pt hAs been non complaint with follow up but urged on the importance of follow up imaging. Will reassess once patient is sober. * Back pain: Seems musculoskeletal. Continue pain management * Full code Problem List: 1. Alcohol dependency 2. Alcohol abuse 3. Alcoholism 4. Alcohol withdrawal syndrome Pain Ratin Pain Location: back Pain Goal: Remain pain free Pain Plan: see a/p Tomorrow's Labs & Rationales: cbc, bep
[2017-01-20] VITALS (8 sets, daily range): BP systolic 126–140; BP diastolic 60–88
--- NOTE | 2017-01-20 07:13 | PN- Housestaff ---
See Addendum Subjective Follow-up For: AlCOHOL DETOX Subjective: Patient denies any vivid dreams, hallucinayions, nausea/vomiting or SI this morning. Still anxious and have tremors in both hands. Also complain of pain in the back that was there when he was admitted to the hospital. Denies any overnight events. Review of Systems Constitutional: Reports: no symptoms. EENTM: Reports: no symptoms. Cardiovascular: Reports: no symptoms. Respiratory: Reports: no symptoms. Gastrointestinal: Reports: no symptoms. Genitourinary: Reports: no symptoms. Musculoskeletal: Reports: back pain. Skin: Reports: no symptoms. Neurological/Psychological: Reports: anxiety, tremors. Hematologic/Endocrine: Reports: no symptoms. Immunologic/Allergic: Reports: no symptoms. Objective Last 24 Hrs of Vital Signs/I&O Vital Signs Date Time Temp Pulse Resp B/P B/P Pulse O2 O2 Flow FiO2 Mean Ox Delivery Rate 01/20 1403 99.0 87 20 130/60 97 Nasal 2.0L Cannula 01/20 1401 99.3 87 20 130/60 97 Room Air 01/20 1142 66 132/86 01/20 1142 66 132/86 01/20 0707 98.8 66 16 132/86 96 Room Air 01/20 0600 98.2 82 20 126/88 01/20 0400 98.9 82 20 126/88 01/20 0000 98.9 82 20 126/88 01/19 2136 98.9 82 20 126/88 96 Room Air 01/19 2000 98.9 71 18 120/60 Intake & Output 01/20 1600 01/20 0800 01/20 0000 Intake Total 200 800 Output Total Balance 200 800 Intake, Oral 200 800 Physical Exam General Appearance: Alert, Oriented X3, Cooperative, No Acute Distress Skin: No Rashes, No Breakdown HEENT: Atraumatic, PERRLA Neck: Supple, No JVD, No thryomegaly Cardiovascular: Regular Rate, Normal S1, Normal S2, No Murmurs Lungs: Clear to Auscultation, Normal Air Movement Abdomen: Normal Bowel Sounds, Soft, No Tenderness, No Hepatospenomegaly Current Medications: Current Medications Sig/Beny Start time Last Medication Dose Route Stop Time Status Admin Acetaminophen 650 MG .STK-MED ONE 01/20 0640 DC PO 07/24 0641 Amlodipine Besylate 5 MG DAILY 01/18 1000 AC 01/20 PO 1142 Atorvastatin Calcium 40 MG 1700 01/18 1700 AC 01/19 PO 1618 Folic Acid 1 MG DAILY 01/18 1000 AC 01/20 PO 1141 Heparin Sodium 5,000 UNIT Q8 01/17 1524 AC (Porcine) SC Ibuprofen 600 MG Q6P PRN 01/17 1530 AC 01/19 PO 1430 Lisinopril 5 MG DAILY 01/18 1813 AC 01/20 PO 1142 Lorazepam 0.5 MG ONCE 01/22 0000 DC PO 01/22 0001 Lorazepam 0.5 MG Q6H 01/21 0000 DC PO 01/21 1801 Lorazepam 0.5 MG ONCE ONE 01/20 1800 DC PO 01/20 1801 Lorazepam 1.5 MG Q6 01/20 1200 AC 01/20 PO 1141 Lorazepam 1 MG Q6H 01/20 0000 DC PO 01/20 1201 Lorazepam 2 MG Q6 01/17 1800 DC 01/20 PO 0641 Lorazepam 0 Q1P PRN 01/17 1530 AC 01/19 IV 2019 Multivitamins 1 TAB DAILY 01/17 1215 AC 01/20 PO 1142 Multivitamins 1 TAB DAILY 01/18 1000 AC 01/20 Therapeutic PO 1142 Nicotine 21 MG DAILY 01/20 1000 AC TOP Nicotine 2 MG DAILY PRN 01/18 1830 AC PO Omeprazole 40 MG DAILY AC 01/17 1533 AC 01/20 PO 0641 Oxycodone/ 1 TAB Q6P PRN 01/17 1530 AC Acetaminophen PO Oxycodone/ 2 TAB Q6P PRN 01/17 1530 AC 01/19 Acetaminophen PO 0409 Patient Medication 1 ED .STK-MED ONE 01/20 1303 DC Teaching ED 01/20 1304 Potassium Chloride 40 MEQ ONCE ONE 01/20 0715 DC 01/20 PO 01/20 0716 1141 Thiamine HCl 100 MG DAILY 01/18 1000 AC 01/20 PO 1142 Last 24 Hrs of Lab/Sj Results Last 24 Hrs of Labs/Mics: Laboratory Tests 01/20/17 0640: Anion Gap 9, Estimated GFR > 60, BUN/Creatinine Ratio 12.5, Total Bilirubin 0.5, Direct Bilirubin 0.3, AST 34, ALT 43, Alkaline Phosphatase 56, Total Protein 6.1 L, Albumin 3.6, CBC w Diff NO MAN DIFF REQ, RBC 4.25 L, MCV 95.0 H, MCH 32.6 H, RDW 14.2, MPV 7.4, Gran % 64.0, Lymphocytes % 28.8, Monocytes % 5.9, Eosinophils % 1.1, Basophils % 0.2, Absolute Granulocytes 4.2, Absolute Lymphocytes 1.9, Absolute Monocytes 0.4, Absolute Eosinophils 0.1, Absolute Basophils 0, PUBS MCHC 34.3 Assessment/Plan Assessment: Mr Montesinos is a 46 y/o gentleman with a PMH EtOH dependence, withdrawal seizure, hepatic streatosis, 2 indistinct low-density lesions in the right lobe of the liver visualized on CT abdomen pelvis in 2013, destructive process of head of left femur ?? Avascular necrosis, tobacco dependence (8 cigarettes per day) last seen at [facility] earlier this month for alcohol detox who was BIBA for alcohol detox. Admit to general medicine for alcohol withdrawal: CIWA 2 this morning, 24 hour highest 10 * lorazepam 1.5 mg PO Q6, Ativan per CIWA. * Aspiration precautions, incentive spirometry * Creatinine back down to 0.7 today * Psychiatry and social work consulted: Awaiting recommendations. * At this time the patient denies any suicidal ideation. If any concern arises, will obtain one-to-one sitter * Continue amlodipine 5 mg daily for blood pressure control * Atorvastatin 40 mg daily for hyperlipidemia. If LFTs are elevated, consider temporary holding statin * Regular diet * Nicotine patch 14mg starting in AM * History of Indistinct low-density lesions in R lobe of the liver visualized on CT abd/pelvis in 2013. Pt hAs been non complaint with follow up but urged on the importance of follow up imaging. Will reassess once patient is sober. * Back pain: Seems musculoskeletal. Continue pain management * Thrombocytopenia: Will continue to monitor. * Hypokalemia: Replete with 1 dose 40mg K-dur. * Full code * DVT Prophylaxis: Patient refused. Problem List: 1. Alcohol abuse 2. Hypokalemia 3. Nicotine dependence 4. Thrombocytopenia 5. Lesion of right lobe of liver 6. VIRAJ (acute kidney injury) Pain Ratin Pain Location: Back Pain Goal: Remain pain free Pain Plan: Pain Pathway Tomorrow's Labs & Rationales: CBC(Thrombocytopenia), BEP (Hypokalemia)
[2017-01-20 10:57] LABS: ABSOLUTE GRANULOCYTE CT 4.2 /CUMM (1.4-6.5); ABSOLUTE LYMPH COUNT 1.9 /CUMM (1.2-3.4); ABSOLUTE MONOCYTE COUNT 0.4 /CUMM (0.10-0.60); BASOPHIL % 0.2 % (0.0-2.0); EOSINOPHIL % 1.1 % (0-5); HEMATOCRIT 40.4 % (42-52); MEAN CORPUSCULAR HGB 32.6 PG (27.0-31.0); MEAN CORPUSCULAR HGB CONC 34.3 G/DL (33.0-37.0); MEAN PLATELET VOLUME 7.4 FL (7.4-10.4); PLATELET COUNT 128 /CUMM (130-400); RBC DISTRIBUTION WIDTH 14.2 % (11.5-14.5); RED BLOOD CELL CT 4.25 /CUMM (4.70-6.10); WHITE BLOOD CELL COUNT 6.6 /CUMM (4.8-10.8)
[2017-01-20 10:58] LABS: ABSOLUTE BASOPHIL COUNT 0 /CUMM (0.0-0.2); ABSOLUTE EOSINOPHIL COUNT 0.1 /CUMM (0.0-0.7)
--- NOTE | 2017-01-20 14:12 | Discharge Summary ---
Visit Information Visit Dates Admission Date: 01/17/17 Discharge Date: 01/23/2007 Hospital Course Course Attending Physician: DENI NASSAR,DIONNE Vigil Primary Care Physician: MARYSOL NASSAR,[facility] Course: Mr. Montesinos is a 46 y/o gentleman with a PMH EtOH dependence, withdrawal seizure, hepatic streatosis, 2 indistinct low-density lesions in the right lobe of the liver visualized on CT abdomen pelvis in 2013, destructive process of head of left femur ?? Avascular necrosis, tobacco dependence (8 cigarettes per day) with [facility] was [facility] for alcohol detox. Records indicate that he has had multiple personal struggles that have unfortunately exacerbated his alcohol dependence including legal issues going back a few months, the loss of his 2015 due to an overdose, instability of living status and recent loss of job. There was concern for questionable suicidal ideation prior to arrival but clarification in the emergency room he denied any suicidal/homicidal ideations. VS on admission: BP 144/78, HR 116, RR 22, SPO2 96% on RA, T 97.3 PE on admission: No Acute Distress, Patient is resting comfortably in no acute distress. Easily arousable to verbal commands. Mucous membranes pink and moist. RRR, normal S1/S2. Lungs: Diminished breath sounds in the basilar regions bilaterally. Abdomen: Soft with mild tenderness to palpation of the epigastric region. Labs: WBC 12.9, H&H 15.5/44.6, platelets 203K, sodium 134, potassium 3.4, chloride 97, bicarbonate 20, BUN/CR 50/1.3, glucose 96 EtOH: < 219 The patient was admitted to the general medicine floor and managed for the following problems: 1. Alcohol dependence with history of withdrawal seizures 2. Acute kidney injury 3. SIRS criteria: CBC 12.9, HR 116, RR 22 (3/4 present) 4. Tobacco dependence 5. Indistinct low-density lesions in R lobe of the liver visualized on CT abd/ pelvis in 2013 Hospital course: 1. Alcohol dependence with history of withdrawal seizures * The patient was managed on Ativan scheduled and when necessary which was tapered off of a six-day hospital course * Postdischarge recommendations will be follow-up at [facility] 2. Acute kidney injury * B1/CR on admission: 15/1.3 With a baseline creatinine of 0.7. This was attributable to dehydration in the context of chronic alcohol use. Gentle hydration with D5NS with noticeable improvement in renal function at discharge 3. SIRS criteria: CBC 12.9, HR 116, RR 22 (3/4 present) * This was attributable to stress in the context of chronic alcohol use. No evidence of infection throughout hospital course 4. Tobacco dependence * Nicotine patch 14 mg 5. Indistinct low-density lesions in R lobe of the liver visualized on CT abd/ pelvis in 2013 * Follow-up abdominal ultrasound on 01/21/2017 with report indicating: No sonographic correlate is found to the faint low-attenuation masslike regions seen on previous CT scan from 2013. The finding previously noted in the britni hepatis was in a typical location for focal hepatic steatosis, and may have resolved in the interim. The finding in the right lobe of the liver on CT scan is indeterminate. No ultrasound correlate is found. Given that no corresponding enlarging mass is seen in the right lobe on ultrasound today, a benign etiology, such as focal hepatic steatosis or perhaps an FNH is suspected. Depending on clinical circumstances, this could be further investigated with an MRI scan with and without contrast. Allergies: Coded Allergies: No Known Allergies (01/01/17) Disposition Summary Disposition Principal Diagnosis: Alcohol dependence/withdrawal Additional Diagnosis: Tobacco dependence Hypokalemia Discharge Disposition: [facility] Discharge Instructions General Discharge Information Code Status: Full Code Patient's Diet: Regular diet Patient's Activity: As tolerated Follow-Up Instructions/Appts: History: Medications as directed. Please follow-up with PCP within 1-2 weeks after discharge. Please refrain from alcohol intake Medications at Discharge Discharge Medications: Continue taking these medications: Multivitamin (One Daily Multivitamin) 1 EACH TABLET 1 Tablet ORAL DAILY Qty = 30 Comments: Last Taken: 01/07/17 Time: 08AM This prescription has been renewed Start taking the following new medications: Lisinopril (Lisinopril) 5 MG TABLET 1 Tablet ORAL DAILY Qty = 30 Refills = 1 Amlodipine Besylate (Amlodipine Besylate) 5 MG TABLET 1 Tablet ORAL DAILY Qty = 30 Refills = 1 Atorvastatin Calcium (Atorvastatin Calcium) 40 MG TABLET 1 Tablet ORAL DAILY Qty = 30 Refills = 1 Nicotine (Nicorelief) 2 MG GUM 1 Gum ORAL EVERY 2 HOURS NEEDED as needed for Tobacco dependence Qty = 1 Refills = 2 The following medications have been changed: Old: Folic Acid (Folic Acid) 1 MG TABLET 1 Milligram ORAL DAILY Qty = 30 New: Folic Acid (Folic Acid) 1 MG TABLET 1 Tablet ORAL DAILY Qty = 30 Comments: Last Taken: 01/07/17 Time: 08AM Old: Thiamine HCl (Vitamin B-1) 100 MG TABLET 100 Milligram ORAL DAILY Qty = 30 New: Thiamine HCl (Vitamin B-1) 100 MG TABLET 1 Tablet ORAL DAILY Qty = 30 Comments: Last Taken: 01/07/17 Time: 08AM Old: Omeprazole (Omeprazole) 20 MG CAPSULE.DR 40 Milligram ORAL DAILY BEFORE BREAKFAST Qty = 30 New: Omeprazole (Omeprazole) 20 MG CAPSULE.DR 2 Tablet ORAL DAILY BEFORE BREAKFAST Qty = 60 Copies To: CRISTINA ULLOA APRN; SANDOVAL CARLSON; MARYSOL NASSAR,[facility]
--- NOTE | 2017-01-20 15:30 | NUR ---
Referral received this am via electronic order fulfillment specialist. This patient is a 46 year old man, admitted to the hospital on 01/17/17 for ETOH detox. This is the third sucha dmission for this patient since early November of this year, and he has, by history refused assistance with aftercare planning each time. On 01/17/17 I met with the patient in the Emergency Department prior to decision to admit. We discussed the multiple admissions with no commitment to aftercare and he agreed to consider assistance with aftercare this admisison. I met with Luis Armando earlier this afternoon. He was alert; pleasant and engaged in interview. He remembered meeting with myself and Dr. Calix on Friday; and was interested in hearing about potential options today. He agreeed to a referral to [facility]; signed a release and appropriate clinical was FAXED to [facility] this afternoon. The FAX was preceeded by a call to [facility], whose admission office reports that they expect to have bed avaialbility later in the week for men. Follow.
[2017-01-21 02:00] VITALS: BP 136/84
[2017-01-21 06:00] VITALS: BP 142/80
--- NOTE | 2017-01-21 07:01 | PN- Housestaff ---
See Addendum Subjective Follow-up For: Alcohol Detox Subjective: Patient was not able to sleep well last night but denies any hallucinations, nausea, vomiting, SOB, chest pain or overnight events. Review of Systems Constitutional: Reports: no symptoms. EENTM: Reports: no symptoms. Cardiovascular: Reports: no symptoms. Respiratory: Reports: no symptoms. Gastrointestinal: Reports: no symptoms. Genitourinary: Reports: no symptoms. Musculoskeletal: Reports: no symptoms. Skin: Reports: no symptoms. Neurological/Psychological: Reports: anxiety, tremors. Hematologic/Endocrine: Reports: no symptoms. Immunologic/Allergic: Reports: no symptoms. Objective Last 24 Hrs of Vital Signs/I&O Vital Signs Date Time Temp Pulse Resp B/P B/P Pulse O2 O2 Flow FiO2 Mean Ox Delivery Rate 01/21 0600 98.1 70 18 142/80 01/21 0600 98.1 70 18 142/80 96 Room Air 01/21 0200 98.4 72 18 136/84 01/20 2200 96.0 74 18 136/88 01/20 2154 98.6 74 18 136/88 96 01/20 1403 99.0 87 20 130/60 97 Nasal 2.0L Cannula 01/20 1401 99.3 87 20 130/60 97 Room Air 01/20 1142 66 132/86 01/20 1142 66 132/86 Intake & Output 01/21 1600 01/21 0800 01/21 0000 Intake Total 490 490 Output Total Balance 490 490 Intake, IV 10 10 Intake, Oral 480 480 Physical Exam General Appearance: Alert, Oriented X3, Cooperative, No Acute Distress Skin: No Rashes, No Breakdown HEENT: Atraumatic, PERRLA, EOMI, Mucous Membr. moist/pink Neck: Supple, No JVD Lungs: Clear to Auscultation, Normal Air Movement Abdomen: Normal Bowel Sounds, Soft, No Tenderness, No Hepatospenomegaly, No Masses Neurological: Normal Gait, Normal Speech, Strength at 5/5 X4 Ext, Normal Tone, Sensation Intact, Cranial Nerves 3-12 NL, Reflexes 2+ Current Medications: Current Medications Sig/Beny Start time Last Medication Dose Route Stop Time Status Admin Amlodipine Besylate 5 MG DAILY 01/18 1000 AC 01/20 PO 1142 Atorvastatin Calcium 40 MG 1700 01/18 1700 AC 01/20 PO 1831 Folic Acid 1 MG DAILY 01/18 1000 AC 01/20 PO 1141 Heparin Sodium 5,000 UNIT Q8 01/17 1524 AC (Porcine) SC Ibuprofen 600 MG Q6P PRN 01/17 1530 AC 01/19 PO 1430 Lisinopril 5 MG DAILY 01/18 1813 AC 01/20 PO 1142 Lorazepam 0.5 MG ONCE 01/22 0000 DC PO 01/22 0001 Lorazepam 1 MG Q8 01/21 1400 AC PO Lorazepam 0.5 MG Q6H 01/21 0000 DC PO 01/21 1801 Lorazepam 0.5 MG ONCE ONE 01/20 1800 DC PO 01/20 1801 Lorazepam 1.5 MG Q6 01/20 1200 DC 01/21 PO 0552 Lorazepam 0 Q1P PRN 01/17 1530 AC 01/19 IV 2019 Multivitamins 1 TAB DAILY 01/17 1215 AC 01/20 PO 1142 Multivitamins 1 TAB DAILY 01/18 1000 AC 01/20 Therapeutic PO 1142 Nicotine 21 MG DAILY 01/20 1000 AC TOP Nicotine 2 MG DAILY PRN 01/18 1830 AC PO Omeprazole 40 MG DAILY AC 01/17 1533 AC 01/21 PO 0652 Oxycodone/ 1 TAB Q6P PRN 01/17 1530 AC Acetaminophen PO Oxycodone/ 2 TAB Q6P PRN 01/17 1530 AC 01/20 Acetaminophen PO 2131 Patient Medication 1 ED .STK-MED ONE 01/20 1303 LA Teaching ED 01/20 1304 Thiamine HCl 100 MG DAILY 01/18 1000 AC 01/20 PO 1142 Last 24 Hrs of Lab/Sj Results Last 24 Hrs of Labs/Mics: Laboratory Tests 01/21/17 0640: Sodium Pending, Potassium Pending, Chloride Pending, Carbon Dioxide Pending, Anion Gap Pending, BUN Pending, Creatinine Pending, BUN/Creatinine Ratio Pending , CBC w Diff Pending, WBC Pending, RBC Pending, Hgb Pending, Hct Pending, MCV Pending, MCH Pending, RDW Pending, Plt Count Pending, MPV Pending, PUBS MCHC Pending Assessment/Plan Assessment: Mr Montesinos is a 46 y/o gentleman with a PMH EtOH dependence, withdrawal seizure, hepatic streatosis, 2 indistinct low-density lesions in the right lobe of the liver visualized on CT abdomen pelvis in 2013, destructive process of head of left femur ?? Avascular necrosis, tobacco dependence (8 cigarettes per day) last seen at [facility] earlier this month for alcohol detox who was BIBA for alcohol detox. Admit to general medicine for alcohol withdrawal: CIWA 2 this morning, 24 hour highest is 4 * lorazepam 1 mg PO Q6, Ativan per CIWA. * Aspiration precautions, incentive spirometry * Creatinine back down to 0.7. * Psychiatry and social work consulted: Awaiting recommendations. * At this time the patient denies any suicidal ideation. If any concern arises, will obtain one-to-one sitter * Continue amlodipine 5 mg daily for blood pressure control * Atorvastatin 40 mg daily for hyperlipidemia. If LFTs are elevated, consider temporary holding statin * Regular diet * Nicotine patch 14mg starting in AM * History of Indistinct low-density lesions in R lobe of the liver visualized on CT abd/pelvis in 2013. Pt has been non complaint with follow up but urged on the importance of follow up imaging. RUQ Ultrasound shows No sonographic correlate is found to the faint low-attenuation masslike regions seen on previous CT scan from 2014. * Back pain: Seems musculoskeletal. Continue pain management * Thrombocytopenia: Resolved. * Hypokalemia: 3,3 today. Will replete with 1 dose 40mg K-dur and check magnesium levels. * Full code * DVT Prophylaxis: Patient refused. Problem List: 1. Alcohol dependency 2. Hypokalemia 3. Thrombocytopenia 4. Lesion of right lobe of liver Pain Ratin Pain Location: Back Pain Goal: Remain pain free Pain Plan: Pain Pathway Tomorrow's Labs & Rationales: BEP(Hypokalemia), Mag
[2017-01-21 09:17] LABS: ABSOLUTE BASOPHIL COUNT 0 /CUMM (0.0-0.2); ABSOLUTE EOSINOPHIL COUNT 0.1 /CUMM (0.0-0.7); ABSOLUTE LYMPH COUNT 2.2 /CUMM (1.2-3.4); ABSOLUTE MONOCYTE COUNT 0.5 /CUMM (0.10-0.60); BASOPHIL % 0.3 % (0.0-2.0); EOSINOPHIL % 1.2 % (0-5); GRANULOCYTE % 58.7 % (42.2-75.2); HEMATOCRIT 41.6 % (42-52); MEAN CORPUSCULAR HGB 32.4 PG (27.0-31.0); MEAN CORPUSCULAR HGB CONC 34.4 G/DL (33.0-37.0); MEAN CORPUSCULAR VOLUME 94.3 FL (80.0-94.0); MEAN PLATELET VOLUME 7.1 FL (7.4-10.4); PLATELET COUNT 137 /CUMM (130-400); RBC DISTRIBUTION WIDTH 13.9 % (11.5-14.5); RED BLOOD CELL CT 4.41 /CUMM (4.70-6.10); WHITE BLOOD CELL COUNT 6.8 /CUMM (4.8-10.8)
--- NOTE | 2017-01-21 09:58 | ULTRASOUND REPORT ---
EXAMINATION: US ABDOMEN LIMITED CLINICAL INFORMATION: Assess liver lesions previously seen on CT in 2014. Patient states history of alcohol abuse and fatty liver. COMPARISON: CT scan of the abdomen dated 11/17/2013. TECHNIQUE: Real-time imaging of the right upper quadrant abdominal viscera. Real-time assessment by the reading radiologist was performed. FINDINGS: PANCREAS: Obscured by overlying bowel gas. LIVER: Normal. The liver demonstrates normal size, contour and echogenicity. No focal lesion or intrahepatic biliary duct dilatation. On real-time scanning, in region of the britni hepatis, no focal mass is seen correlating with the finding on CT scan. Similarly, in the right lobe of the liver, where on CT scan in a faint 1.4 cm nodular density was seen, no focal sonographic correlate is found. Certainly, no enlarging mass is noted in either location. Main portal vein is patent with normally directed flow. GALLBLADDER: Normal. The gallbladder is physiologically distended without evidence of stones, sludge, polyps, wall thickening or pericholecystic fluid. COMMON BILE DUCT: Normal in caliber measuring 0.4 cm in diameter. RIGHT KIDNEY: Normal. No hydronephrosis. Benign parapelvic cyst is seen in the upper pole, measuring 1.7 x 1.9 x 1.8 cm. No renal calculi or suspicious focal parenchymal lesions. The kidney measures 11.6 cm in maximum dimension. FREE FLUID: None. IMPRESSION: 1. No sonographic correlate is found to the faint low-attenuation masslike regions seen on previous CT scan from 2014. The finding previously noted in the britni hepatis was in a typical location for focal hepatic steatosis, and may have resolved in the interim. The finding in the right lobe of the liver on CT scan is indeterminate. No ultrasound correlate is found. Given that no corresponding enlarging mass is seen in the right lobe on ultrasound today, a benign etiology, such as focal hepatic steatosis or perhaps an FNH is suspected. Depending on clinical circumstances, this could be further investigated with an MRI scan with and without contrast. 2. Pancreas not seen. 3. Benign parapelvic right renal cyst.
[2017-01-21 13:50] VITALS: BP 110/80
--- NOTE | 2017-01-21 17:18 | NUR ---
Met with Luis Armando earlier today. He remains inerested in residential rehab treatment at [facility] and he had a telephone screening with them today. They are able to offer a bed for him on ; transportation will be provided by facility. Patient should be transferred with a 30 day supply of medications; benzos must be discontinued. Patient aware of plan; case discussed with Dr. Rodriguez. Follow.
[2017-01-21 22:01] VITALS: BP 100/60
[2017-01-22] VITALS (7 sets, daily range): BP systolic 96–122; BP diastolic 70–80
--- NOTE | 2017-01-22 11:11 | PN- Housestaff ---
Subjective Follow-up For: Alcohol detox Subjective: The patient is stable, vitals within normal limits. Still has some tremors and anxiety but denies any nausea, vomiting, hallucinations or overnight events. Review of Systems Constitutional: Reports: no symptoms. EENTM: Reports: no symptoms. Cardiovascular: Reports: no symptoms. Respiratory: Reports: no symptoms. Gastrointestinal: Reports: no symptoms. Genitourinary: Reports: no symptoms. Musculoskeletal: Reports: no symptoms. Skin: Reports: no symptoms. Neurological/Psychological: Reports: anxiety, tremors. Hematologic/Endocrine: Reports: no symptoms. Immunologic/Allergic: Reports: no symptoms. Objective Last 24 Hrs of Vital Signs/I&O Vital Signs Date Time Temp Pulse Resp B/P B/P Pulse O2 O2 Flow FiO2 Mean Ox Delivery Rate 01/22 1419 98.3 80 20 122/80 96 01/22 1000 98.4 74 20 122/80 01/22 0944 98.4 74 20 122/80 01/22 0941 98.4 74 20 122/80 01/22 0800 98.8 74 20 122/80 01/22 0800 98.9 74 20 122/80 01/22 0614 97.9 62 20 96/70 97 Room Air 01/21 2201 97.9 66 20 100/60 97 Intake & Output 01/22 1600 01/22 0800 01/22 0000 Intake Total 420 Output Total Balance 420 Intake, Oral 420 Patient 170 lb Weight Physical Exam General Appearance: Alert, Oriented X3, Cooperative Skin: No Rashes, No Breakdown Neck: Supple, No JVD, No thryomegaly Lymphatic: Cervical nl Cardiovascular: Regular Rate, Normal S1, Normal S2, No Murmurs Lungs: Clear to Auscultation, Normal Air Movement Abdomen: Normal Bowel Sounds, Soft, No Tenderness, No Hepatospenomegaly, No Masses Current Medications: Current Medications Sig/Beny Start time Last Medication Dose Route Stop Time Status Admin Amlodipine Besylate 5 MG DAILY 01/18 1000 AC 01/22 PO 0944 Atorvastatin Calcium 40 MG 1700 01/18 1700 AC 01/21 PO 1655 Folic Acid 1 MG DAILY 01/18 1000 AC 01/22 PO 0941 Heparin Sodium 5,000 UNIT Q8 01/17 1524 DC (Porcine) SC Ibuprofen 600 MG Q6P PRN 01/17 1530 AC 01/19 PO 1430 Lisinopril 5 MG DAILY 01/18 1813 AC 01/22 PO 0941 Lorazepam 1 MG Q12 01/22 1000 AC 01/22 PO 0940 Lorazepam 0.5 MG ONCE 01/22 0000 DC PO 01/22 0001 Lorazepam 1 MG Q8 01/21 1400 DC 01/22 PO 0523 Lorazepam 0 Q1P PRN 01/17 1530 AC 01/19 IV 2019 Magnesium Chloride 64 MG BID 01/22 1000 AC 01/22 PO 01/22 2201 0940 Multivitamins 1 TAB DAILY 01/17 1215 DC 01/21 PO 1050 Multivitamins 1 TAB DAILY 01/18 1000 AC 01/22 Therapeutic PO 0942 Nicotine 21 MG DAILY 01/20 1000 DC 01/21 TOP 1050 Nicotine 2 MG DAILY PRN 01/18 1830 AC PO Omeprazole 40 MG DAILY AC 01/17 1533 AC 01/21 PO 0652 Oxycodone/ 1 TAB Q6P PRN 01/17 1530 AC Acetaminophen PO Oxycodone/ 2 TAB Q6P PRN 01/17 1530 AC 01/22 Acetaminophen PO 1227 Potassium Chloride 40 MEQ ONCE ONE 01/22 0645 DC 01/22 PO 01/22 0646 0643 Thiamine HCl 100 MG DAILY 01/18 1000 AC 01/22 PO 0941 Last 24 Hrs of Lab/Sj Results Last 24 Hrs of Labs/Mics: Laboratory Tests 01/22/17 0655: Anion Gap 11, Estimated GFR > 60, BUN/Creatinine Ratio 21.4 Assessment/Plan Assessment: Mr Montesinos is a 46 y/o gentleman with a PMH EtOH dependence, withdrawal seizure, hepatic streatosis, 2 indistinct low-density lesions in the right lobe of the liver visualized on CT abdomen pelvis in 2013, destructive process of head of left femur ?? Avascular necrosis, tobacco dependence (8 cigarettes per day) last seen at [facility] earlier this month for alcohol detox who was BIBA for alcohol detox. Admit to general medicine for alcohol withdrawal: CIWA 0 this morning, 24 hour highest is 4 * lorazepam 1 mg Po Q12, Ativan per CIWA. * Aspiration precautions, incentive spirometry * Creatinine back down to 0.7. * Social work consulted: He remains inerested in residential rehab treatment at [facility] and he had a telephone screening with them. They are able to offer a bed for him on tomorrow. Patient will be transferred with a 30 day supply of medications; benzos will be discontinued. * At this time the patient denies any suicidal ideation. If any concern arises, will obtain one-to-one sitter * Continue amlodipine 5 mg daily for blood pressure control * Atorvastatin 40 mg daily for hyperlipidemia. If LFTs are elevated, consider temporary holding statin * Regular diet * Nicotine patch 14mg starting in AM * History of Indistinct low-density lesions in R lobe of the liver visualized on CT abd/pelvis in 2013. Pt has been non complaint with follow up but urged on the importance of follow up imaging. RUQ Ultrasound shows No sonographic correlate is found to the faint low-attenuation masslike regions seen on previous CT scan from 2014. * Back pain: Seems musculoskeletal. Continue pain management * Thrombocytopenia: Resolved. * Hypokalemia: Resolved. Repleted with 1 dose of 40mg K-dur. magnesium levels are within normal limits. * Full code * DVT Prophylaxis: Patient refused. Problem List: 1. Alcohol abuse 2. Thrombocytopenia 3. Hypokalemia Pain Ratin Pain Location: Back Pain Goal: Remain pain free Pain Plan: Pain pathway Tomorrow's Labs & Rationales: BEP(hypokalemia)
--- NOTE | 2017-01-22 11:44 | Patient Discharge Instructions ---
Discharge Instructions General Discharge Information You were seen/treated for: Alcohol detox Watch for these problems: Anxiety, termors, hallucinations Special Instructions: Please follow-up with your PCP within a week of discharge. Diet Continue normal diet: Yes Activity Full Activity/No Limits: Yes Acute Coronary Syndrome Inclusion Criteria At DC or during hospital stay patient has or had the following: ACS DIAGNOSIS No Discharge Core Measures Meds if any: Prescribed or Continued at Discharge Meds if any: NOT Prescribed or Continued at Discharge Congestive Heart Failure Inclusion Criteria At DC or during hospital stay patient has or had the following: CHF DIAGNOSIS No Discharge Core Measures Meds if any: Prescribed or Continued at Discharge Meds if any: NOT Prescribed or Continued at Discharge Cerebrovascular accident Inclusion Criteria At DC or during hospital stay patient has or had the following: CVA/TIA Diagnosis No Discharge Core Measures Meds if any: Prescribed or Continued at Discharge Meds if any: NOT Prescribed or Continued at Discharge Venous thromboembolism Inclusion Criteria VTE Diagnosis No VTE Type NONE VTE Confirmed by (Test) NONE Discharge Core Measures - Per Current guidelines, there needs to be overlap - treatment for the first 5 days of Warfarin therapy. - If discharged on Warfarin prior to 5 days of - overlap therapy, the patient will need to be - assessed for post discharge needs including - *Post discharge parental anticoagulation - *Warfarin and/or parental anticoagulation education - *Follow up date to check INR post discharge At least 5 days overlap therapy as Inpatient No Meds if any: Prescribed or Continued at Discharge Note: Overlap Therapy is Warfarin and Anticoagulant Meds if any: NOT Prescribed or Continued at Discharge
--- NOTE | 2017-01-22 14:08 | PN- Att Addend ---
Attending MD Review Statement Attending Statement Attending MD Statement: examined this patient, discuss w/resident/PA/MEDICAL CARE ADMINISTRATOR, agreed w/resident/PA/MEDICAL CARE ADMINISTRATOR, reviewed EMR data (avail), discussed w/nursing, discussed w/ case mgmt Attending Assessment/Plan: Planned for dc tomorrow to [facility]. D/w pt the care plan. Pt stable for dc tomorrow. CIWA scores 0-4
[2017-01-22] MEDS ORDERED: OMEPRAZOLE20 M2 PO (15:09)
[2017-01-22] MEDS ORDERED: AMLODIPINE BESYL5 M1 PO ×2 (15:09→15:14)
[2017-01-22] MEDS ORDERED: LISINOPRIL5 M1 PO ×2 (15:09→15:14)
[2017-01-22] MEDS ORDERED: ATORVASTATIN CA40 M1 PO ×2 (15:09→15:14)
[2017-01-23 06:46] VITALS: BP 110/70
--- NOTE | 2017-01-23 07:23 | PN- Housestaff ---
Subjective Follow-up For: Alcohol detox Subjective: Patient was complaining of a hypoglycemic episode this morning. Still have some tremors and anxiety but Denies any fever, chills, nausea, vomiting, hallucinations or vivid dreams. Review of Systems Constitutional: Reports: no symptoms. EENTM: Reports: no symptoms. Cardiovascular: Reports: no symptoms. Respiratory: Reports: no symptoms. Gastrointestinal: Reports: no symptoms. Genitourinary: Reports: no symptoms. Musculoskeletal: Reports: no symptoms. Skin: Reports: no symptoms. Neurological/Psychological: Reports: anxiety, tremors. Hematologic/Endocrine: Reports: no symptoms. Immunologic/Allergic: Reports: no symptoms. Objective Last 24 Hrs of Vital Signs/I&O Vital Signs Date Time Temp Pulse Resp B/P B/P Pulse O2 O2 Flow FiO2 Mean Ox Delivery Rate 01/23 0811 60 110/70 01/23 0811 60 110/70 01/23 0646 97.9 60 19 110/70 98 Room Air 01/22 2232 98.1 67 18 108/70 96 01/22 1800 98.3 80 20 122/80 Intake & Output 01/23 1600 01/23 0800 01/23 0000 Intake Total 480 480 Output Total Balance 480 480 Intake, Oral 480 480 Physical Exam General Appearance: Alert, Oriented X3, Cooperative Skin: No Rashes, No Breakdown HEENT: Atraumatic, PERRLA, EOMI, Mucous Membr. moist/pink Cardiovascular: Regular Rate, Normal S1, Normal S2, No Murmurs Lungs: Clear to Auscultation, Normal Air Movement Abdomen: Normal Bowel Sounds, Soft, No Tenderness, No Hepatospenomegaly, No Masses Neurological: Normal Gait, Normal Speech, Strength at 5/5 X4 Ext, Normal Tone, Sensation Intact Assessment/Plan Assessment: Mr Montesinos is a 46 y/o gentleman with a PMH EtOH dependence, withdrawal seizure, hepatic streatosis, 2 indistinct low-density lesions in the right lobe of the liver visualized on CT abdomen pelvis in 2013, destructive process of head of left femur ?? Avascular necrosis, tobacco dependence (8 cigarettes per day) last seen at [facility] earlier this month for alcohol detox who was BIBA for alcohol detox. Admit to general medicine for alcohol withdrawal: CIWA 0 this morning, 24 hour highest is 4 * Will recieve his last dose of ativan today. * Aspiration precautions, incentive spirometry * Creatinine back down to 0.7. * Patient was discharged to residential rehab treatment at [facility]. Patient was discharged with a 30 day supply of medications; benzos were discontinued. * At this time the patient denies any suicidal ideation. If any concern arises, will obtain one-to-one sitter * Continue amlodipine 5 mg daily for blood pressure control * Atorvastatin 40 mg daily for hyperlipidemia. If LFTs are elevated, consider temporary holding statin * Regular diet * Nicotine patch 14mg starting in AM * History of Indistinct low-density lesions in R lobe of the liver visualized on CT abd/pelvis in 2014. Pt has been non complaint with follow up but urged on the importance of follow up imaging. RUQ Ultrasound shows No sonographic correlate is found to the faint low-attenuation masslike regions seen on previous CT scan from 2014. * Back pain: Seems musculoskeletal. Continue pain management * Thrombocytopenia: Resolved. * Hypokalemia: Resolved. Repleted with 1 dose of 40mg K-dur. magnesium levels are within normal limits. * Full code * DVT Prophylaxis: Patient refused. Problem List: 1. Alcohol abuse 2. Hypertension 3. Hypoglycemia Pain Ratin Pain Location: None Pain Goal: Remain pain free Pain Plan: None Tomorrow's Labs & Rationales: None
[2017-01-23] MEDS ORDERED: OMEPRAZOLE20 M2 PO (08:04)
[2017-01-23] MEDS ORDERED: FOLIC ACID1 M1 PO (08:04)
[2017-01-23] MEDS ORDERED: ONE DAILY MULT1 EAC2 PO (08:04)
[2017-01-23] MEDS ORDERED: VITAMIN B-1100 MG PO (08:04)
[2017-01-23] MEDS ORDERED: LISINOPRIL5 M1 PO (08:04)
[2017-01-23] MEDS ORDERED: NICORELIEF2 MG PO (08:04)
[2017-01-23] MEDS ORDERED: AMLODIPINE BESYL5 M1 PO (08:04)
[2017-01-23] MEDS ORDERED: ATORVASTATIN CA40 M1 PO (08:04)
[2017-01-23 08:11] VITALS: BP 110/70
--- NOTE | 2017-01-23 15:58 | NUR ---
Late Entry: Aware of patients discharge today. Luis Armando was transferred to [facility] in [place], [place] His sister Vika, transported him. Luis Armando received a 30 day supply of his medications prior to discharge.
--- NOTE | 2017-01-23 17:15 | PN- Att Addend ---
Attending MD Review Statement Attending Statement Attending MD Statement: examined this patient, discuss w/resident/PA/FITTING ROOM OPERATOR, agreed w/resident/PA/FITTING ROOM OPERATOR, reviewed EMR data (avail), discussed w/nursing Attending Assessment/Plan: Pt admitted for alcohol detox and currently stable and is being dced to alcohol rehab in stable condition. See dc summary for more details.
== END 2017-01-23 11:30 | DRG 775 ==
LOC: ERH 01:05 → 2NA 14:42 → ERHI 14:42 → ENRESERV 16:22 → ENTRNSPT 19:41 → 2NA 20:17 → CMPTRNSPT 22:19 → 2NA 01-20 08:50 → ENPENDDIS 01-23 11:29 → 2NA 01-23 11:30
PROVIDERS: Emergency Medicine; Internal Medicine; ADMIT Internal Medicine
DX: F10.239 Alcohol dependence with withdrawal, unspecified (principal); Y90.7 Blood alcohol level of 200-239 mg/100 ml; K76.0 Fatty (change of) liver, not elsewhere classified; M87.852 Other osteonecrosis, left femur; F17.210 Nicotine dependence, cigarettes, uncomplicated; N17.9 Acute kidney failure, unspecified; K76.9 Liver disease, unspecified; E86.0 Dehydration; R65.10 Systemic inflammatory response syndrome (SIRS) of non-infectious origin without acute organ dysfunction; D69.6 Thrombocytopenia, unspecified; M54.5 Low back pain; E87.6 Hypokalemia; I10 Essential (primary) hypertension; E78.5 Hyperlipidemia, unspecified
CPT/HCPCS: 2NASP; 36415; 80307; 82436; 96374; 96375; G0480; J1644; J2405; J3490